=== PATIENT | female | born 1980 | race Caucasian/White ===

== ENCOUNTER 2020-01-16 13:31 | Outpatient (REF) | payer OTHER, SELFPAY | END 2020-01-16 13:32 | disposition home or self-care (01) | LOC: HO.LNP 13:31 | PROVIDERS: Visit Provider Pathology Anatomic Pathology & Clinical Pathology | DX: D89.49 Other mast cell activation disorder (principal) | CPT/HCPCS: 88363 ==

== ENCOUNTER → 2020-01-27 11:57 | Outpatient (BNVA) | payer OTHER, SELFPAY | PROVIDERS: PCP Internal Medicine; Referring Provider Internal Medicine; Visit Provider Internal Medicine Gastroenterology | DX: Z76.89 Persons encountering health services in other specified circumstances (principal) ==

== ENCOUNTER 2020-01-28 11:50 | Outpatient (REF) | payer OTHER, SELFPAY ==
[2020-01-28 14:21] LABS: Alanine Aminotransferase 22 U/L (0-31); Albumin Level 4.3 g/dL (3.5-5.0); Alkaline Phosphatase 82 U/L (39-117); Anion Gap 10 (12-20); Aspartate Amino Transferase 35 U/L (5-31); Bilirubin Total 0.3 mg/dL (0.0-1.0); Blood Urea Nitrogen 11 mg/dL (9-16); Calcium 9.1 mg/dL (8.4-10.2); Carbon Dioxide 33 mmol/L (22-29); Chloride 104 mmol/L (96-108); Estimated Glomerular Filt Rate > 60; Glucose Random 70 mg/dL (60-115); Potassium 3.3 mmol/l (3.3-5.1); Sodium 144 mmol/L (135-145)
[2020-01-28 14:43] LABS: Free T4 (Free Thyroxine) 1.04 ng/dL (0.71-1.85); Thyroid Stimulating Hormone 0.42 uIU/mL (0.32-4.0)
[2020-01-29 09:03] LABS: Thyroid Peroxidase Antibodies 1 IU/mL (<9)
[2020-01-29 12:08] LABS: Anti DNA DS Antibody <1 IU/mL
[2020-01-29 13:42] LABS: Immunoglobulin A 167 mg/dL (47-310); Immunoglobulin G 949 mg/dL (600-1640); Immunoglobulin M 236 mg/dL (50-300)
[2020-01-29 17:12] LABS: Thyroglobulin Antibodies <1 IU/mL (< or = 1); Transglutaminase Ab IgG 2 U/mL; Transglutaminase IgA 1 U/mL
[2020-01-29 22:37] LABS: Anti Nuclear Antibody Pattern Nuclear, Homogeneous; Anti Nuclear Antibody Screen POSITIVE (NEGATIVE)
== END 2020-01-28 11:51 | disposition home or self-care (01) ==
LOC: HO.LAB 11:50
PROVIDERS: PCP Internal Medicine; Visit Provider Nurse Practitioner Family
DX: R53.83 Other fatigue (principal); R23.2 Flushing; R19.7 Diarrhea, unspecified; R14.0 Abdominal distension (gaseous); R10.84 Generalized abdominal pain; R51.9 Headache, unspecified; J31.0 Chronic rhinitis; J45.20 Mild intermittent asthma, uncomplicated
CPT/HCPCS: 36415; 80053; 82784; 82785; 83516; 83520; 84439; 84443; 86003; 86038; 86039; 86225; 86376; 86800

== ENCOUNTER → 2020-03-23 13:45 | Outpatient (BNVA) | payer OTHER, SELFPAY | PROVIDERS: PCP Internal Medicine; Visit Provider Internal Medicine Cardiovascular Disease | DX: I49.8 Other specified cardiac arrhythmias (principal); R00.2 Palpitations | CPT/HCPCS: 93005 ==

== ENCOUNTER → 2020-04-20 09:20 | Outpatient (BNVA) | payer OTHER, SELFPAY | PROVIDERS: PCP Internal Medicine; Visit Provider Internal Medicine Gastroenterology ==

== ENCOUNTER 2020-04-21 14:09 | Outpatient (REF) | payer OTHER, SELFPAY ==
[2020-04-21 15:07] LABS: MANUAL DIFF FLAG NO
[2020-04-21 15:16] LABS: Basophils Percent Auto 0.6 % (0-2); Eosinophils Percent Auto 0.1 % (0-4); Hematocrit 36.5 % (37-47); Hemoglobin 11.8 g/dl (12.0-16.0); Imm Gran Abs Auto 0.01 X10*3/uL (0.00-0.03); Imm Gran Pct Auto 0.1 % (0.0-0.4); Lymphocytes Absolute Auto 1.6 X10*3/uL (1.2-4.9); Lymphocytes Percent Auto 23.3 % (20-40); Mean Corpuscular HGB Conc 32.3 g/dl (31.0-35.0); Mean Corpuscular Hemoglobin 30.5 pg (27.0-33.0); Mean Corpuscular Volume 94.3 fL (80-98); Mean Platelet Volume 11.1 fL (9.4-12.3); Monocytes Absolute Auto 0.5 X10*3/uL (0.1-1.2); Monocytes Percent Auto 6.6 % (2-11); Neutrophils Absolute Auto 4.8 X10*3/uL (2.0-8.3); Neutrophils Percent Auto 69.3 % (45-73); Platelet Count 289 X10*3/uL (160-400); Red Blood Count 3.87 X10*6/uL (4.20-5.50); Red Cell Distribution Width 13.2 % (11.0-16.0); White Blood Count 6.9 X10*3/uL (4.8-10.8)
[2020-04-21 15:45] LABS: Alanine Aminotransferase 22 U/L (0-31); Albumin Level 4.3 g/dL (3.5-5.0); Alkaline Phosphatase 87 U/L (39-117); Anion Gap 11 (12-20); Aspartate Amino Transferase 19 U/L (5-31); Bilirubin Total 0.3 mg/dL (0.0-1.0); Blood Urea Nitrogen 12 mg/dL (9-16); Calcium 9.1 mg/dL (8.4-10.2); Carbon Dioxide 29 mmol/L (22-29); Chloride 106 mmol/L (96-108); Estimated Glomerular Filt Rate > 60; Glucose Random 92 mg/dL (60-115); Potassium 3.7 mmol/L (3.3-5.1); Sodium 142 mmol/L (135-145)
[2020-04-21 16:00] LABS: Erythrocyte Sedimentation Rate 9 MM/HR (0-20)
[2020-04-21 16:06] LABS: Ferritin 17 ng/mL (10-250); Vitamin D 25-OH Total 35.5 ng/mL (>30)
[2020-04-23 15:36] LABS: Zinc 105 mcg/dL (60-130)
[2020-04-23 17:16] LABS: Folate > 20.0 ng/mL (> or = 4.0); Vitamin B12 628 pg/mL (200-900)
[2020-04-25 13:22] LABS: Vitamin B6 7.8 ng/mL (2.1-21.7)
[2020-04-26 03:32] LABS: Beta-Gamma Tocopherol <1.0 mg/L (<=4.3)
[2020-04-27 14:17] LABS: Vitamin A 32 mcg/dL (38-98)
[2020-04-27 16:16] LABS: Nicotinamide <20 ng/mL; Vit B3 - Nicotinic Acid <20 ng/mL
[2020-04-28 14:12] LABS: Vitamin K1 374 pg/mL (130-1500)
[2020-04-29 10:52] LABS: Vitamin B5 (Pantothenic Acid) 75 ng/mL (<275)
== END 2020-04-21 14:10 | disposition home or self-care (01) ==
LOC: HO.LAB 14:09
PROVIDERS: PCP Internal Medicine; Visit Provider Internal Medicine Gastroenterology
DX: D64.9 Anemia, unspecified (principal); R74.8 Abnormal levels of other serum enzymes
CPT/HCPCS: 36415; 80053; 82180; 82306; 82607; 82728; 82746; 84207; 84446; 84590; 84591; 84597; 84630; 85025; 85652

== ENCOUNTER 2020-04-23 14:03 | Outpatient (REF) | payer OTHER, SELFPAY ==
[2020-04-28 10:06] LABS: Fecal Fat Qualitative Normal (Normal)
[2020-04-30 15:37] LABS: Pancreatic Elastase-1 438 mcg/g
== END 2020-04-23 14:04 | disposition home or self-care (01) ==
LOC: HO.LNP 14:03
PROVIDERS: Visit Provider Internal Medicine Gastroenterology
DX: D64.9 Anemia, unspecified (principal); R74.8 Abnormal levels of other serum enzymes
CPT/HCPCS: 82656; 82705

== ENCOUNTER 2020-05-20 12:44 | Outpatient (REF) | payer OTHER, SELFPAY ==
--- NOTE | ~2020-05-20 | MM_ITS ---
EXAMINATION: MM SCREENING DIGITAL BREAST TOMOSYNTHESIS, BILATERAL CLINICAL INFORMATION: Screening. Asymptomatic. Age 39. No prior breast imaging. No known family history breast cancer. The lifetime risk of breast cancer based on the Tyrer-Cuzick Model is 12%. COMPARISON: None (current study represents initial baseline exam). TECHNIQUE: Digital breast tomosynthesis is performed in both the craniocaudal and mediolateral oblique views along with computer-aided detection (CAD). Synthesized 2D images are generated from the tomosynthesis. Additional bilateral exaggerated CC views are provided. FINDINGS: The breasts are heterogeneously dense, which may obscure small masses (ACR BI-RADS breast composition Category c). There are no significant masses, abnormal calcifications, or other abnormalities. The axilla and skin contours are unremarkable. MM/MM tomosynthesis screening BI IMPRESSION: No mammographic evidence of malignancy. ASSESSMENT: BI-RADS 1: Negative RECOMMENDATION: Routine annual mammography screening. This patient's information was entered into a reminder system with a target due date for their next mammogram.
== END 2020-05-20 12:45 | disposition home or self-care (01) ==
LOC: HO.MAMMO 12:44
PROVIDERS: Visit Provider Internal Medicine
DX: Z12.31 Encounter for screening mammogram for malignant neoplasm of breast (principal)
CPT/HCPCS: 77063; 77067

== ENCOUNTER 2020-05-31 08:52 | Outpatient (REF) | payer OTHER, SELFPAY ==
[2020-05-31 09:37] LABS: MANUAL DIFF FLAG NO
[2020-05-31 09:43] LABS: Basophils Absolute Auto 0.1 X10*3/uL (0.0-0.2); Basophils Percent Auto 0.8 % (0-2); Eosinophils Percent Auto 0.2 % (0-4); Hematocrit 37.7 % (37-47); Hemoglobin 12.4 g/dl (12.0-16.0); Imm Gran Abs Auto 0.01 X10*3/uL (0.00-0.03); Imm Gran Pct Auto 0.2 % (0.0-0.4); Lymphocytes Absolute Auto 1.4 X10*3/uL (1.2-4.9); Lymphocytes Percent Auto 22.7 % (20-40); Mean Corpuscular HGB Conc 32.9 g/dl (31.0-35.0); Mean Corpuscular Hemoglobin 30.5 pg (27.0-33.0); Mean Corpuscular Volume 92.9 fL (80-98); Mean Platelet Volume 11.1 fL (9.4-12.3); Monocytes Absolute Auto 0.5 X10*3/uL (0.1-1.2); Monocytes Percent Auto 7.3 % (2-11); Neutrophils Absolute Auto 4.3 X10*3/uL (2.0-8.3); Neutrophils Percent Auto 68.8 % (45-73); Platelet Count 297 X10*3/uL (160-400); Red Blood Count 4.06 X10*6/uL (4.20-5.50); White Blood Count 6.2 X10*3/uL (4.8-10.8)
[2020-05-31 10:15] LABS: Ferritin 11 ng/mL (10-250)
[2020-06-04 16:57] LABS: Vitamin A 39 mcg/dL (38-98)
== END 2020-05-31 08:53 | disposition home or self-care (01) ==
LOC: HO.LAB 08:52
PROVIDERS: PCP Internal Medicine; Visit Provider Internal Medicine Gastroenterology
DX: D64.9 Anemia, unspecified (principal)
CPT/HCPCS: 36415; 82728; 84590; 85025

== ENCOUNTER 2020-06-16 12:42 | Day surgery (SDC) | payer OTHER, SELFPAY ==
--- NOTE | 2020-06-15 10:52 | HO.ANESPROP2 ---
Documented by User: Natividad Pitts 06/15/20 10:55 HPI - Anesthesia Eval Consult details Narrative: 39yo F for Upper Endoscopy Mast Cell Activation Syndrome - benadryl preop PMFSH Active Problems Active Problems: All Active Problems (Updated 06/10/20 @ 09:31 by Debora Dubose MD) Mast cell activation syndrome (Acute) Anemia (Acute) Postural orthostatic tachycardia syndrome (Acute) Encounter for general adult medical examination with abnormal findings (Acute) Palpitations (Acute) Environmental allergies (Acute) Headache syndrome (Acute) Anxiety (Acute) Breast screening (Acute) Mast cell disorder (Acute) Elevated serum tryptase (Acute) Elevated serum tryptase (Acute) Past Medical History Medical History Anemia Anxiety Asthma Atrial tachycardia Gastroparesis Mast cell activation syndrome Postural orthostatic tachycardia syndrome Family History Family History Mother Fibromyalgia Diabetes Sister No problems noted. Maternal Aunt Uterine cancer Surgical History Surgical History H/O esophagogastroduodenoscopy Hx of colonoscopy Social History Social History (Updated 06/10/20 @ 09:25 by Halley Hernandez) Household Members: None Alcohol intake: former Smoking Status: Never smoker Use of substances other than those prescribed or required for medical reasons: No Are you DNR?: No Advance Directives: No Advance Directives Information Provided: Yes Meds Allergies Allergy/AdvReac Type Severity Reaction Status Date / Time prochlorperazine Allergy Intermediate DYSTONIC, Verified 06/16/20 12:55 [From COMPAZINE] muscle spasms Environmental Allergy Intermediate Runny Nose Uncoded 06/16/20 12:55 Home Medications Medication Instructions Recorded Confirmed Last Taken Type loratadine 1 tab PO DAILY 12/01/19 03/23/20 Unknown History sumatriptan succinate 50 mg tablet See Rx Instructions PO .COMPLEX 03/05/20 03/23/20 Unknown History Exam Exam Date and Time: June 15, 2020 1052 Pertinent Lab Results Pertinent Lab Results: Laboratory Tests 06/10/20 06/10/20 09:35 09:35 WBC 6.3 Hgb 12.3 Hct 37.9 Plt Count 297 Sodium 142 Potassium 3.6 Chloride 105 Carbon Dioxide 31 H BUN 13 Creatinine 0.81 Assessment and Plan Assessment Anesthesia Assessment: Chart Reviewed Documented by User: Fransisca Ellis 06/16/20 13:48 PMFSH Past Medical History Medical History Anemia Anxiety Asthma Atrial tachycardia Gastroparesis Mast cell activation syndrome Postural orthostatic tachycardia syndrome Family History Family History Mother Fibromyalgia Diabetes Sister No problems noted. Maternal Aunt Uterine cancer Surgical History Surgical History H/O esophagogastroduodenoscopy Hx of colonoscopy Social History Social History (Updated 06/10/20 @ 09:25 by Halley Hernandez) Household Members: None Alcohol intake: former Smoking Status: Never smoker Use of substances other than those prescribed or required for medical reasons: No Are you DNR?: No Advance Directives: No Advance Directives Information Provided: Yes Meds Allergies Allergy/AdvReac Type Severity Reaction Status Date / Time prochlorperazine Allergy Intermediate DYSTONIC, Verified 06/16/20 12:55 [From COMPAZINE] muscle spasms Environmental Allergy Intermediate Runny Nose Uncoded 06/16/20 12:55 Home Medications Medication Instructions Recorded Confirmed Last Taken Type loratadine 1 tab PO DAILY 12/01/19 03/23/20 Unknown History sumatriptan succinate 50 mg tablet See Rx Instructions PO .COMPLEX 03/05/20 03/23/20 Unknown History Exam Airway Mallampati Class: II TM Dist: >3cm Neck ROM: Full Heart: RRR Lungs: CTA Assessment and Plan Assessment Anesthesia Assessment: Anesthesia Plan Discussed and Chart Reviewed Final Anesthetic Review NPO: Yes ASA Class: II Final Preanesthetic Review: No Changes in Pt Med Stat and Consent Obtained/Reviewed Patient Risk: Intermediate Procedure Risk: Intermediate Anesthetic Plan Anesthetic Plan: MAC: Disposition: Standard PACU
[2020-06-16 13:01] LABS: UPreg QC Valid YES; Urine Pregnancy NEGATIVE (NEGATIVE)
[2020-06-16 13:08] VITALS: BP 134/85; PULSE 117; RESP 18; TEMP 37; O2SAT 97; BMI 23.0
[2020-06-16] MEDS: Lactated Ringers 1,000 ML 100 ML IVCONT (13:22)
[2020-06-16] MEDS: diphenhydrAMINE HCL 25 MG TABLET PO (13:22)
--- NOTE | 2020-06-16 13:43 | P.HPSUR_ITS ---
Pre-Procedural Eval Section B Chief Complaint: Anemia Details of Present Illness: dysphagia Relevant Family History (Specify if Yes): No Relevant Social History: None Present Medications: see Short Stay Collaborative assessment Medical History: Significant History (Anemia Anxiety Asthma Atrial tachycardia Gastroparesis Mast cell activation syndrome Postural orthostatic tachycardia syndrome) History of Previous Operations: Relevant previous surgery/procedure and date(s) (H/O esophagogastroduodenoscopy Hx of colonoscopy) Allergies: Allergies Allergy/AdvReac Type Severity Reaction Status Date / Time prochlorperazine Allergy Intermediate DYSTONIC, Verified 06/16/20 12:55 [From COMPAZINE] muscle spasms Environmental Allergy Intermediate Runny Nose Uncoded 06/16/20 12:55 Review of Systems Sugical H&P ROS: Negative: Constitution, Cardiovascular, Respiratory, Neurological, Psychiatric, Hem-Onc, Allergic/Immunologic, Gastrointestinal, Genitourinary, Musculoskeletal, Integumentary, Endocrine and Eyes/Ears/Nose/Throat Exam Surgical H&P Exam: Normal: HEENT, Normal: Heart, Normal: Lungs, Normal: Ext remities, Normal: Abdomen, Normal: Skin and Normal: Neurological Plan Diagnosis/Plan: Unchanged I have reviewed the history and physical and performed a pertinent physical examination on my patient. No changes have occurred unless specified.
--- NOTE | 2020-06-16 14:22 | P.BOP_ITS ---
Brief Operative Note Date of Service: 06/16/20 Pre-op diagnosis: dysphagia, Post-op diagnosis: same Procedure: see op note Surgeon: Tiffanie Werner MD Anesthesia: MAC Was an Pilot Supervisor used for this Procedure?: No Estimated blood loss (mL): 0 Condition: stable Disposition: PACU
--- NOTE | 2020-06-16 14:22 | W.PM.OPN ---
Operative Note Operative Note Date of Service: 06/16/20 Narrative: Procedure Description: EGD FLEXIBLE TRANSORAL UPPER GASTROINTESTINAL ENDOSCOPY UPPER ENDOSCOPY Consent: Indications for the procedure and potential complications of bleeding, perforation, reaction to medications and missed diagnosis were discussed with the patient and informed consent was obtained. Instrument: Olympus GIF H 190 J mid size upper endoscope Monitoring: Vital signs and clinical assessment, continuous EKG monitoring, Pulse oximetry, Carbon Dioxide monitoring and blood pressure monitoring were done throughout the procedure. Procedure: The patient was placed in the left lateral decubitis position and pre-procedure medications were administered and a bite block was placed. The endoscope was inserted into the mouth and advanced under direct vision to the third part of duodenum. A careful inspection was made as the upper endoscope was withdrawn including a retroflexed examination of the proximal stomach; Findings and interventions are described below. Findings: Larynx:normal Esophagus: GE junction at 35 cm, diaphragm hiatus at 35 cm, mild esophagitis, bx taken from GEJ and distal, proximal/mid esophagus in separate jars, 20 mm balloon dilated across GEJ and then 18 mm at proximal esophagus-no tears seen Stomach: Patchy gastric erythema. Biopsies were obtained. Grade 2 flap valve on retroflexed examination of the cardia. Duodenum: Normal bulb and descending duodenum, bx taken Intervention: Biopsies as noted above Impression/Findings: mild esophagitis mild gastritis PLAN: await path, can have regular diet
[2020-06-16 14:59] VITALS: BP 119/68; PULSE 121; RESP 16; TEMP 37.3; O2SAT 97
[2020-06-16 15:10] VITALS: PULSE 110; RESP 18; O2SAT 99
[2020-06-16 15:14] VITALS: BP 129/81; PULSE 108; RESP 18; TEMP 36.8; O2SAT 99
[2020-06-16 15:25] VITALS: PULSE 104; RESP 18; O2SAT 99
== END 2020-06-16 15:46 | disposition home or self-care (01) ==
PROVIDERS: Nurse Practitioner; PCP Internal Medicine; Visit Provider Internal Medicine Gastroenterology
PROC: 0DJ08ZZ Inspection of Upper Intestinal Tract, Via Natural or Artificial Opening Endoscopic (ICD-10-PCS; CPT 43235; principal; 2020-06-16 14:10)
DX: D64.9 Anemia, unspecified (principal); D89.40 Mast cell activation, unspecified; K29.50 Unspecified chronic gastritis without bleeding; R74.8 Abnormal levels of other serum enzymes; K20.80 Other esophagitis without bleeding; K44.9 Diaphragmatic hernia without obstruction or gangrene; K31.84 Gastroparesis; I47.1 Supraventricular tachycardia; I49.8 Other specified cardiac arrhythmias; J45.909 Unspecified asthma, uncomplicated; Z88.8 Allergy status to other drugs, medicaments and biological substances
CPT/HCPCS: 43249; 43239; 81025; 88305; 88341; 88342; C1726; J3010; Q0163

== ENCOUNTER → 2020-07-06 12:03 | Outpatient (BNVA) | payer OTHER, SELFPAY | PROVIDERS: PCP Internal Medicine; Visit Provider Internal Medicine Gastroenterology ==

== ENCOUNTER → 2020-08-24 10:52 | Outpatient (BNVA) | payer OTHER, SELFPAY | PROVIDERS: PCP Internal Medicine; Referring Provider Internal Medicine; Visit Provider Internal Medicine Gastroenterology ==

== ENCOUNTER → 2020-10-29 10:19 | Outpatient (BNVA) | payer OTHER, SELFPAY | PROVIDERS: PCP Internal Medicine; Referring Provider Internal Medicine; Visit Provider Internal Medicine Gastroenterology ==

== ENCOUNTER 2020-11-01 09:08 | Outpatient (REF) | payer OTHER, SELFPAY ==
[2020-11-01 10:06] LABS: MANUAL DIFF FLAG NO
[2020-11-01 10:15] LABS: Basophils Absolute Auto 0.1 X10*3/uL (0.0-0.2); Basophils Percent Auto 0.8 % (0-2); Eosinophils Absolute Auto 0.2 X10*3/uL (0.0-0.4); Eosinophils Percent Auto 2.6 % (0-4); Hematocrit 37.3 % (37-47); Hemoglobin 12.4 g/dl (12.0-16.0); Imm Gran Abs Auto 0.02 X10*3/uL (0.00-0.03); Imm Gran Pct Auto 0.3 % (0.0-0.4); Lymphocytes Absolute Auto 1.6 X10*3/uL (1.2-4.9); Lymphocytes Percent Auto 25.4 % (20-40); Mean Corpuscular HGB Conc 33.2 g/dl (31.0-35.0); Mean Corpuscular Hemoglobin 31.1 pg (27.0-33.0); Mean Corpuscular Volume 93.5 fL (80-98); Mean Platelet Volume 11.3 fL (9.4-12.3); Monocytes Absolute Auto 0.4 X10*3/uL (0.1-1.2); Monocytes Percent Auto 6.7 % (2-11); Neutrophils Absolute Auto 3.9 X10*3/uL (2.0-8.3); Neutrophils Percent Auto 64.2 % (45-73); Platelet Count 276 X10*3/uL (160-400); Red Blood Count 3.99 X10*6/uL (4.20-5.50); Red Cell Distribution Width 13.3 % (11.0-16.0); White Blood Count 6.1 X10*3/uL (4.8-10.8)
[2020-11-01 10:49] LABS: Alanine Aminotransferase 27 U/L (0-31); Albumin Level 4.5 g/dL (3.5-5.0); Alkaline Phosphatase 73 U/L (39-117); Anion Gap 13 (12-20); Aspartate Amino Transferase 22 U/L (5-31); Bilirubin Total 0.4 mg/dL (0.0-1.0); Blood Urea Nitrogen 11 mg/dL (9-16); C Reactive Protein 0.04 mg/dL (< or = 0.50); Calcium 9.3 mg/dL (8.4-10.2); Carbon Dioxide 27 mmol/L (22-29); Chloride 107 mmol/L (96-108); Estimated Glomerular Filt Rate > 60; Glucose Random 90 mg/dL (60-115); Iron 125 mcg/dL (30-160); Percent Iron Saturation 33 % (15-50); Potassium 3.8 mmol/L (3.3-5.1); Sodium 143 mmol/L (135-145); Total Iron Binding Capacity 381 mcg/dL (228-428); Unsaturated Iron Binding 256 ug/dL
[2020-11-01 11:02] LABS: Estimated Average Glucose 94 mg/dL; Hemoglobin A1c % 4.9 %
[2020-11-01 11:30] LABS: Ferritin 22 ng/mL (10-250); TSH reflex Free T4 0.73 uIU/mL (0.32-4.0); Vitamin D 25-OH Total 33.8 ng/mL (>30)
[2020-11-01 11:48] LABS: Folate 17.8 ng/mL (> or = 4.0); Vitamin B12 721 pg/mL (200-900)
[2020-11-04 06:28] LABS: Zinc 84 mcg/dL (60-130)
[2020-11-04 16:32] LABS: Vitamin B5 (Pantothenic Acid) 87 ng/mL (<275)
[2020-11-04 17:43] LABS: Vitamin C 1.2 mg/dL (0.3-2.7)
[2020-11-05 12:36] LABS: Vitamin B6 18.8 ng/mL (2.1-21.7)
[2020-11-05 13:46] LABS: Nicotinamide 24 ng/mL; Vit B3 - Nicotinic Acid <20 ng/mL
[2020-11-06 02:12] LABS: Vitamin K1 459 pg/mL (130-1500)
[2020-11-07 00:26] LABS: Vitamin A 23 mcg/dL (38-98)
[2020-11-07 00:41] LABS: Alpha-Tocopherol 11.5 mg/L (5.7-19.9); Beta-Gamma Tocopherol <1.0 mg/L (<=4.3)
== END 2020-11-01 09:09 | disposition home or self-care (01) ==
LOC: HO.LAB 09:08
PROVIDERS: PCP Internal Medicine; Visit Provider Internal Medicine Gastroenterology
DX: R74.8 Abnormal levels of other serum enzymes (principal); K75.81 Nonalcoholic steatohepatitis (NASH); E16.2 Hypoglycemia, unspecified; R00.2 Palpitations
CPT/HCPCS: 36415; 80053; 82180; 82306; 82533; 82607; 82728; 82746; 83036; 83540; 84207; 84443; 84446; 84590; 84591; 84597; 84630; 85025; 86140

== ENCOUNTER 2021-01-05 11:49 | Outpatient (REF) | payer OTHER, SELFPAY ==
[2021-01-11 10:01] LABS: Creatinine Random Urine 160 mg/dL (16 - 326); N-Methylhistamine Random Urine 114 mcg/g Cr (30-200)
[2021-01-25 10:32] LABS: Prostaglandin D2 Random Urine 638 ng/liter
== END 2021-01-05 11:50 | disposition home or self-care (01) ==
LOC: HO.LAB 11:49
PROVIDERS: PCP Internal Medicine; Visit Provider Nurse Practitioner Family
DX: D89.49 Other mast cell activation disorder (principal); R19.7 Diarrhea, unspecified; L50.8 Other urticaria
CPT/HCPCS: 36415; 82542; 82570; 83520; 84150

== ENCOUNTER 2021-03-01 09:48 | Outpatient (REF) | payer OTHER, SELFPAY ==
[2021-03-01 11:01] LABS: MANUAL DIFF FLAG NO
[2021-03-01 11:11] LABS: Basophils Absolute Auto 0.1 X10*3/uL (0.0-0.2); Basophils Percent Auto 1.3 % (0-2); Eosinophils Percent Auto 0.1 % (0-4); Hematocrit 38.3 % (37.0-47.0); Hemoglobin 12.2 g/dl (12.0-16.0); Imm Gran Abs Auto 0.02 X10*3/uL (0.00-0.03); Imm Gran Pct Auto 0.3 % (0.0-0.4); Lymphocytes Absolute Auto 1.3 X10*3/uL (1.2-4.9); Lymphocytes Percent Auto 19.3 % (20-40); Mean Corpuscular HGB Conc 31.9 g/dl (31.0-35.0); Mean Corpuscular Hemoglobin 29.8 pg (27.0-33.0); Mean Corpuscular Volume 93.4 fL (80.0-98.0); Mean Platelet Volume 10.7 fL (9.4-12.3); Monocytes Absolute Auto 0.4 X10*3/uL (0.1-1.2); Monocytes Percent Auto 6.3 % (2-11); Neutrophils Absolute Auto 4.9 x10*3/uL (2.0-8.3); Neutrophils Percent Auto 72.7 % (45-73); Platelet Count 349 X10*3/uL (160-400); Red Cell Distribution Width 13.1 % (11.0-16.0); White Blood Count 6.8 X10*3/uL (4.8-10.8)
[2021-03-01 12:08] LABS: Alanine Aminotransferase 36 U/L (0-31); Albumin Level 4.4 g/dL (3.5-5.0); Alkaline Phosphatase 113 U/L (39-117); Anion Gap 12 (12-20); Aspartate Amino Transferase 17 U/L (5-31); Bilirubin Total 0.2 mg/dL (0.0-1.0); Blood Urea Nitrogen 17 mg/dL (9-16); Calcium 9.7 mg/dL (8.4-10.2); Carbon Dioxide 26 mmol/L (22-29); Chloride 110 mmol/L (96-108); Estimated Glomerular Filt Rate > 60; Glucose Random 98 mg/dL (60-115); Potassium 3.8 mmol/L (3.3-5.1); Sodium 144 mmol/L (135-145); Total Protein 7.4 g/dL (6.5-8.0)
[2021-03-05 00:16] LABS: Vitamin A 42 mcg/dL (38-98)
== END 2021-03-01 09:49 | disposition home or self-care (01) ==
LOC: HO.LAB 09:48
PROVIDERS: PCP Internal Medicine; Referring Provider Internal Medicine; Visit Provider Internal Medicine Gastroenterology
DX: E50.9 Vitamin A deficiency, unspecified (principal); R74.8 Abnormal levels of other serum enzymes; F41.9 Anxiety disorder, unspecified
CPT/HCPCS: 36415; 80053; 84590; 85025

== ENCOUNTER → 2021-04-28 13:39 | Outpatient (BNVA) | payer OTHER, SELFPAY | PROVIDERS: PCP Internal Medicine; Visit Provider Advanced Practice Midwife | DX: Z13.89 Encounter for screening for other disorder (principal) ==

== ENCOUNTER 2021-05-31 08:25 | Outpatient (REF) | payer OTHER, SELFPAY ==
--- NOTE | ~2021-05-31 | MM_ITS ---
EXAMINATION: MM SCREENING DIGITAL BREAST TOMOSYNTHESIS, BILATERAL CLINICAL INFORMATION: Screening. Asymptomatic. The lifetime risk of breast cancer based on the Tyrer-Cuzick Model is 12%. COMPARISON: Mammography: 05/20/2020 (baseline) TECHNIQUE: Digital breast tomosynthesis is performed in both the craniocaudal and mediolateral oblique views along with computer-aided detection (CAD). Synthesized 2D images are generated from the tomosynthesis. FINDINGS: The breasts are heterogeneously dense, which may obscure small masses (ACR BI-RADS breast composition Category c). There are no significant masses, abnormal calcifications, or other abnormalities. Parenchymal pattern is similar to prior study. No architectural abnormality. There are bilateral small solitary low axillary tail nodes. The skin contours are smooth. There are no significant changes. MM/MM tomosynthesis screening BI IMPRESSION: No mammographic evidence of malignancy. ASSESSMENT: BI-RADS 2: Benign RECOMMENDATION: Routine annual mammography screening. This patient's information was entered into a reminder system with a target due date for their next mammogram.
== END 2021-05-31 08:26 | disposition home or self-care (01) ==
LOC: HO.MAMMO 08:25
PROVIDERS: PCP Internal Medicine; Visit Provider Internal Medicine
DX: Z12.31 Encounter for screening mammogram for malignant neoplasm of breast (principal)
CPT/HCPCS: 77063; 77067

== ENCOUNTER 2021-06-01 09:49 | Day surgery (SDC) | payer OTHER, SELFPAY ==
[2021-05-25 09:58] VITALS: BMI 23.3
--- NOTE | 2021-05-27 12:07 | P.CONAN_ITS ---
HPI - Anesthesia Eval Consult details Narrative: 40yo F for Upper Endoscopy s/p EGD 06/2020 with MAC Mast Cell Activation Syndrome - benadryl preop PMFSH Active Problems Active Problems: All Active Problems (Updated 04/28/21 @ 14:21 by Silvano Braden) Elevated serum tryptase (Acute) Elevated serum tryptase (Acute) Mast cell disorder (Acute) Breast screening (Acute) Headache syndrome (Acute) Environmental allergies (Acute) Palpitations (Acute) Encounter for general adult medical examination with abnormal findings (Acute) Hypoglycemia (Acute) Vitamin A deficiency (Acute) Anxiety, generalized (Acute) Encounter for annual routine gynecological examination (Acute) Anemia (Acute) Postural orthostatic tachycardia syndrome (Acute) Anxiety (Acute) Past Medical History Medical History Anemia Anxiety Asthma Atrial tachycardia Gastroparesis Mast cell activation syndrome Postural orthostatic tachycardia syndrome Family History Family History Mother Fibromyalgia Diabetes Sister No problems noted. Maternal Aunt Uterine cancer Surgical History Surgical History (Updated 05/24/21 @ 15:49 by Deloris Sr RN) H/O esophagogastroduodenoscopy Hx of colonoscopy Social History Social History Household Members: None [facility] Alcohol intake: former Patient Tobacco Use Status: Never used Tobacco Second Hand Smoke Exposure: No Current occupational status: employed ([employer]) Meds Allergies Allergy/AdvReac Type Severity Reaction Status Date / Time prochlorperazine Allergy Intermediate DYSTONIC, Verified 04/28/21 14:11 [From COMPAZINE] muscle spasms Environmental Allergy Intermediate Runny Nose Uncoded 03/08/21 10:29 Home Medications Medication Instructions Recorded Confirmed Last Taken Type loratadine 10 mg tablet 1 tab PO DAILY 12/01/19 03/08/21 Unknown History sumatriptan succinate 50 mg tablet See Rx Instructions PO .COMPLEX 03/05/20 03/08/21 Unknown History (Imitrex) epinephrine 0.3 mg/0.3 mL 1 ml IM NEEDED 07/06/20 03/08/21 Unknown History injection, auto-injector vitamin A 10,000 unit capsule 1 cap PO DAILY 03/01/21 03/08/21 Unknown History amitriptyline 10 mg tablet 30 mg PO BEDTIME tab 03/08/21 03/08/21 Unknown History Exam Exam Date and Time: May 27, 2021 1207 Height,Weight and Vital Signs: Height 5 ft 3 in Weight 59.874 kg Pertinent Lab Results Pertinent Lab Results: Laboratory Tests 03/01/21 03/01/21 10:59 10:59 WBC 6.8 Hgb 12.2 Hct 38.3 Plt Count 349 Sodium 144 Potassium 3.8 Chloride 110 H Carbon Dioxide 26 BUN 17 H Creatinine 0.81 Assessment and Plan Assessment Anesthesia Assessment: Chart Reviewed
[2021-06-01 09:57] VITALS: BP 135/81; PULSE 93; RESP 18; TEMP 35.9; O2SAT 100
[2021-06-01] MEDS: diphenhydrAMINE HCL 25 MG TABLET PO (10:00)
[2021-06-01] MEDS: Lactated Ringers 1,000 ML 100 ML IVCONT (10:18)
--- NOTE | 2021-06-01 10:27 | MHC.SHP ---
Pre-Procedural Eval Section A Date of Service: 06/01/21 Section B Chief Complaint: mast cell disorder Details of Present Illness: EGD for Tryptase stained biopsies and a c-KIT test Relevant Family History (Specify if Yes): No Relevant Social History: None Present Medications: see Short Stay Collaborative assessment Medical History: Significant History (Anemia Anxiety Asthma Atrial tachycardia Gastroparesis Mast cell activation syndrome Postural orthostatic tachycardia syndrome) History of Previous Operations: Relevant previous surgery/procedure and date(s) (EGD, colonoscopy) Allergies: Allergies Allergy/AdvReac Type Severity Reaction Status Date / Time prochlorperazine Allergy Intermediate DYSTONIC, Verified 04/28/21 14:11 [From COMPAZINE] muscle spasms Environmental Allergy Intermediate Runny Nose Uncoded 03/08/21 10:29 Review of Systems Sugical H&P ROS: Negative: Constitution, Cardiovascular, Respiratory, Neurological, Psychiatric, Hem-Onc, Allergic/Immunologic, Gastrointestinal, Genitourinary, Musculoskeletal, Integumentary, Endocrine and Eyes/Ears/Nose/Throat Exam Surgical H&P Exam: Normal: HEENT, Normal: Heart, Normal: Lungs, Normal: Extremities, Normal: Abdomen, Normal: Skin and Normal: Neurological Plan Diagnosis/Plan: Unchanged I have reviewed the history and physical and performed a pertinent physical examination on my patient. No changes have occurred unless specified.
[2021-06-01 10:30] LABS: UPreg QC Valid YES; Urine Pregnancy NEGATIVE (NEGATIVE)
--- NOTE | 2021-06-01 10:53 | PM.OP ---
Brief Operative Note Date of Service: 06/01/21 Pre-op diagnosis: EGD for Tryptase stained biopsies and a c-KIT test -hx of dysphagia and mast cell disorder Post-op diagnosis: same Procedure: see op note Surgeon: Tiffanie Werner MD Anesthesia: MAC Was an Test Engine Evaluator used for this Procedure?: No Estimated blood loss (mL): 0 Condition: stable Disposition: PACU
--- NOTE | 2021-06-01 10:53 | W.PM.OPN ---
Operative Note Operative Note Date of Service: 06/01/21 Narrative: Procedure Description: EGD Indication: EGD for Tryptase stained biopsies and a c-KIT test -hx of dysphagia and mast cell disorder Anesthesia: MAC FLEXIBLE TRANSORAL UPPER GASTROINTESTINAL ENDOSCOPY UPPER ENDOSCOPY Consent: Indications for the procedure and potential complications of bleeding, perforation, reaction to medications and missed diagnosis were discussed with the patient and informed consent was obtained. Instrument: Olympus GIF H 190 J mid size upper endoscope Monitoring: Vital signs and clinical assessment, continuous EKG monitoring, Pulse oximetry, Carbon Dioxide monitoring and blood pressure monitoring were done throughout the procedure. Procedure: The patient was placed in the left lateral decubitis position and pre-procedure medications were administered and a bite block was placed. The endoscope was inserted into the mouth and advanced under direct vision to the third part of duodenum. A careful inspection was made as the upper endoscope was withdrawn including a retroflexed examination of the proximal stomach; Findings and interventions are described below. Findings: Larynx:normal, midl erythema at vocal cords Esophagus: GE junction at 36 cm, diaphragm hiatus at 36 cm, balloon dilation done to 20 mm at GEj and 20 mm at the UES, no tears seen, random bx taken Stomach: Patchy gastric erythema. Biopsies were obtained. Grade 2 flap valve on retroflexed examination of the cardia. Duodenum: Normal bulb and descending duodenum, bx taken Intervention: Biopsies as noted above, balloon dilation Impression/Findings: mild gastritis PLAN: cont with medications as doing, await bx results
[2021-06-01 10:57] VITALS: BP 98/57; PULSE 87; RESP 18; TEMP 36.7; O2SAT 100
[2021-06-01 11:12] VITALS: BP 114/68; PULSE 84; RESP 18; O2SAT 100
[2021-06-01 11:24] VITALS: BP 120/72; PULSE 90; RESP 16; TEMP 36.6; O2SAT 100
== END 2021-06-01 12:22 | disposition home or self-care (01) ==
PROVIDERS: Nurse Practitioner; PCP Internal Medicine; Visit Provider Internal Medicine Gastroenterology
PROC: 0DJ08ZZ Inspection of Upper Intestinal Tract, Via Natural or Artificial Opening Endoscopic (ICD-10-PCS; CPT 43235; principal; 2021-06-01 11:00)
DX: K21.9 Gastro-esophageal reflux disease without esophagitis (principal); D89.40 Mast cell activation, unspecified; K29.50 Unspecified chronic gastritis without bleeding; K31.84 Gastroparesis; K44.9 Diaphragmatic hernia without obstruction or gangrene; D64.9 Anemia, unspecified; E50.9 Vitamin A deficiency, unspecified; F41.1 Generalized anxiety disorder; R74.8 Abnormal levels of other serum enzymes; J45.909 Unspecified asthma, uncomplicated; I49.8 Other specified cardiac arrhythmias; Z79.899 Other long term (current) drug therapy; Z88.8 Allergy status to other drugs, medicaments and biological substances
CPT/HCPCS: 43249; 43239; 81025; 88305; 88341; 88342; C1726; Q0163

== ENCOUNTER 2021-11-11 13:45 | Outpatient (REF) | payer OTHER, SELFPAY | END 2021-11-11 13:46 | disposition home or self-care (01) | LOC: HO.LAB 13:45 | PROVIDERS: Absent Provider Internal Medicine Medical Oncology; PCP Internal Medicine; Referring Provider Internal Medicine Gastroenterology; Visit Provider Nurse Practitioner Family | DX: Z13.89 Encounter for screening for other disorder (principal) ==

== ENCOUNTER → 2022-01-02 14:33 | Outpatient (BNVA) | payer OTHER, SELFPAY | PROVIDERS: PCP Internal Medicine; Referring Provider Internal Medicine; Visit Provider Internal Medicine Cardiovascular Disease | DX: I49.8 Other specified cardiac arrhythmias (principal) | CPT/HCPCS: 93005 ==

== ENCOUNTER 2022-01-20 13:12 | Outpatient (REF) | payer OTHER, SELFPAY ==
--- NOTE | ~2022-01-20 | US_ITS ---
EXAMINATION: US ABDOMEN COMPLETE CLINICAL INFORMATION: Upper abdominal pain, unspecified. COMPARISON: Ultrasound abdomen complete 01/28/2018 TECHNIQUE: Real-time imaging of the abdominal viscera. FINDINGS: PANCREAS: Obscured by bowel gas. ABDOMINAL AORTA: Visualized aorta is normal in caliber however portions are obscured by bowel gas. INFERIOR VENA CAVA: Visualized portions are normal. LIVER: Normal. The liver is normal in size. The liver contour is normal. Parenchymal echogenicity is normal. No focal hepatic lesion. There is no intrahepatic biliary duct dilatation seen. GALLBLADDER: Surgically absent. COMMON BILE DUCT: Normal in caliber measuring 0.4 cm in diameter. RIGHT KIDNEY: Normal. No hydronephrosis. No renal calculi or focal parenchymal lesions. The kidney measures 10.4 cm in maximum dimension. LEFT KIDNEY: Normal. No hydronephrosis. No renal calculi or focal parenchymal lesions. The kidney measures 9.8 cm in maximum dimension. SPLEEN: Normal. The spleen measures 9.9 cm in maximum dimension. FREE FLUID: None. US/US abdomen complete IMPRESSION: The pancreas and portions of the aorta were obscured by bowel gas limiting evaluation. Status post cholecystectomy. No intra or extrahepatic biliary duct dilatation.
== END 2022-01-20 13:13 | disposition home or self-care (01) ==
LOC: HO.US 13:12
PROVIDERS: Visit Provider Internal Medicine Gastroenterology
DX: R10.10 Upper abdominal pain, unspecified (principal)
CPT/HCPCS: 76700

== ENCOUNTER 2022-04-25 10:00 | Day surgery (SDC) | payer OTHER, SELFPAY ==
[2022-04-20 11:35] VITALS: BMI 23.7
--- NOTE | 2022-04-24 09:40 | HO.ANESPROP2 ---
HPI - Anesthesia Eval Consult details Narrative: 41yo F for Upper Endo [place] [facility] s/p EGD 05/2021 with MAC benadryl 25mg PO preop 2/2 mast cell activation PMFSH Active Problems Active Problems: All Active Problems (Updated 01/16/22 @ 12:59 by Tiffanie Werner MD) Elevated serum tryptase (Acute) Elevated serum tryptase (Acute) Mast cell disorder (Acute) Breast screening (Acute) Headache syndrome (Acute) Environmental allergies (Acute) Palpitations (Acute) Encounter for general adult medical examination with abnormal findings (Acute) Hypoglycemia (Acute) Vitamin A deficiency (Acute) Anxiety, generalized (Acute) Encounter for annual routine gynecological examination (Acute) Upper abdominal pain (Acute) Anemia (Acute) Postural orthostatic tachycardia syndrome (Acute) Anxiety (Acute) Past Medical History Medical History Anemia Anxiety Asthma Atrial tachycardia Gastroparesis Mast cell activation syndrome Postural orthostatic tachycardia syndrome Family History Family History Mother Fibromyalgia Diabetes Sister No problems noted. Maternal Aunt Uterine cancer Surgical History Surgical History (Updated 04/25/22 @ 10:47 by Linette Inman, RN) H/O esophagogastroduodenoscopy History of Leonarod fundoplication Hx of colonoscopy Social History Social History Household Members: None Housing: Condominium Alcohol intake: former Patient Tobacco Use Status: Never used Tobacco e-Cigarette/Vaping Use: Never Used Second Hand Smoke Exposure: No Current occupational status: employed ([employer]) Cognitive needs: No Hearing needs: No Vision needs: No Meds Allergies Allergy/AdvReac Type Severity Reaction Status Date / Time prochlorperazine Allergy Intermediate DYSTONIC, Verified 04/25/22 10:57 [From COMPAZINE] muscle spasms Environmental Allergy Intermediate Runny Nose Uncoded 11/11/21 11:51 Home Medications Medication Instructions Recorded Confirmed Last Taken Type loratadine 10 mg tablet 1 tab PO DAILY 12/01/19 04/25/22 Unknown History sumatriptan succinate 50 mg tablet See Rx Instructions PO .COMPLEX 03/05/20 04/25/22 Unknown History (Imitrex) epinephrine 0.3 mg/0.3 mL 1 ml IM NEEDED anaphylaxis 07/06/20 04/25/22 Unknown History injection, auto-injector amitriptyline 10 mg tablet 30 mg PO BEDTIME 03/08/21 04/25/22 Unknown History Exam Exam Date and Time: April 24, 2022 0940 Height,Weight and Vital Signs: Height 5 ft 3 in Weight 60.781 kg Narrative Narrative: EKG 12/2021 normal sinus rhythm 87 beats per minute biatrial enlargement with J-point depression Assessment and Plan Assessment Anesthesia Assessment: Chart Reviewed
[2022-04-25 11:04] VITALS: BP 136/74; PULSE 105; RESP 16; TEMP 37.1; O2SAT 99
[2022-04-25 11:06] LABS: UPreg QC Valid YES
[2022-04-25 11:07] LABS: Urine Pregnancy NEGATIVE (NEGATIVE)
[2022-04-25] MEDS: diphenhydrAMINE HCL 25 MG CAPSULE PO (11:07)
[2022-04-25] MEDS: Lactated Ringers 1,000 ML 100 ML IVCONT (11:22)
--- NOTE | 2022-04-25 11:31 | MHC.SHP ---
Pre-Procedural Eval Section A Date of Service: 04/25/22 Section B Chief Complaint: Upper abdominal pain, unspecified Details of Present Illness: GERD Relevant Family History (Specify if Yes): No Relevant Social History: None Present Medications: see Short Stay Collaborative assessment Medical History: Significant History (Anemia Anxiety Asthma Atrial tachycardia Gastroparesis Mast cell activation syndrome Postural orthostatic tachycardia syndrome) History of Previous Operations: Relevant previous surgery/procedure and date(s) (egd,colonoscopy) Allergies: Allergies Allergy/AdvReac Type Severity Reaction Status Date / Time prochlorperazine Allergy Intermediate DYSTONIC, Verified 04/25/22 10:57 [From COMPAZINE] muscle spasms Environmental Allergy Intermediate Runny Nose Uncoded 11/11/21 11:51 Review of Systems Sugical H&P ROS: Negative: Constitution, Cardiovascular, Respiratory, Neurological, Psychiatric, Hem-Onc, Allergic/Immunologic, Gastrointestinal, Genitourinary, Musculoskeletal, Integumentary, Endocrine and Eyes/Ears/Nose/Throat Exam Surgical H&P Exam: Normal: HEENT, Normal: Heart, Normal: Lungs, Normal: Extremities, Normal: Abdomen, Normal: Skin and Normal: Neurological Plan Diagnosis/Plan: Unchanged I have reviewed the history and physical and performed a pertinent physical examination on my patient. No changes have occurred unless specified. Time Spent With Patient Time: Total time managing care of this patient today ____ minutes.
--- NOTE | 2022-04-25 12:49 | W.PM.OPN ---
Operative Note Operative Note Date of Service: 04/25/22 Narrative: Procedure Description: EGD Indication: [] Anesthesia: MAC FLEXIBLE TRANSORAL UPPER GASTROINTESTINAL ENDOSCOPY UPPER ENDOSCOPY Consent: Indications for the procedure and potential complications of bleeding, perforation, reaction to medications and missed diagnosis were discussed with the patient and informed consent was obtained. Instrument: Olympus GIF H 190 J mid size upper endoscope Monitoring: Vital signs and clinical assessment, continuous EKG monitoring, Pulse oximetry, Carbon Dioxide monitoring and blood pressure monitoring were done throughout the procedure. Procedure: The patient was placed in the left lateral decubitis position and pre-procedure medications were administered and a bite block was placed. The endoscope was inserted into the mouth and advanced under direct vision to the third part of duodenum. A careful inspection was made as the upper endoscope was withdrawn including a retroflexed examination of the proximal stomach; Findings and interventions are described below. Findings: Larynx:normal, mild erythema at vocal cords Esophagus: GE junction at 36? cm, diaphragm hiatus at 36 cm, balloon dilation done to 19 mm at GEj and 19 mm at the UES, no tears seen, CLANCY attached at 30 cm Stomach: Patchy gastric erythema. Grade 2 flap valve on retroflexed examination of the cardia. Duodenum: Normal bulb and descending duodenum, Intervention: Clancy placement balloon dilation Impression/Findings: mild gastritis mild laryngitis PLAN: cont with medications as doing, await clancy on treatment
[2022-04-25 12:57] VITALS: BP 114/58; PULSE 107; RESP 18; TEMP 37; O2SAT 98
[2022-04-25 13:12] VITALS: BP 121/77; PULSE 96; RESP 18; O2SAT 99
[2022-04-25 13:27] VITALS: BP 132/82; PULSE 98; RESP 18; TEMP 37.1; O2SAT 99
== END 2022-04-25 14:03 | disposition home or self-care (01) ==
PROVIDERS: Nurse Practitioner; PCP Internal Medicine; Visit Provider Internal Medicine Gastroenterology
PROC: (CPT 43249; principal; 2022-04-25 12:30)
DX: R10.10 Upper abdominal pain, unspecified (principal); R19.7 Diarrhea, unspecified; K29.60 Other gastritis without bleeding; J04.0 Acute laryngitis; K44.9 Diaphragmatic hernia without obstruction or gangrene; K31.84 Gastroparesis; D64.9 Anemia, unspecified; J45.909 Unspecified asthma, uncomplicated; I47.1 Supraventricular tachycardia; G90.A Postural orthostatic tachycardia syndrome [POTS]; F41.1 Generalized anxiety disorder; D89.40 Mast cell activation, unspecified; Z79.82 Long term (current) use of aspirin; Z79.899 Other long term (current) drug therapy; Z88.8 Allergy status to other drugs, medicaments and biological substances; Z90.49 Acquired absence of other specified parts of digestive tract
CPT/HCPCS: 43249; 81025; C1726; J2250

== ENCOUNTER → 2022-05-04 12:52 | Outpatient (BNVA) | payer OTHER, SELFPAY | PROVIDERS: PCP Internal Medicine; Visit Provider Advanced Practice Midwife | DX: Z13.89 Encounter for screening for other disorder (principal) ==

== ENCOUNTER → 2022-05-12 09:35 | Outpatient (BNVA) | payer OTHER, SELFPAY | PROVIDERS: PCP Internal Medicine; Visit Provider Internal Medicine Gastroenterology | DX: Z13.89 Encounter for screening for other disorder (principal) ==

== ENCOUNTER 2022-06-06 10:09 | Outpatient (REF) | payer OTHER, SELFPAY ==
--- NOTE | ~2022-06-06 | MM_ITS ---
EXAMINATION: MM SCREENING DIGITAL BREAST TOMOSYNTHESIS, BILATERAL CLINICAL INFORMATION: Screening. Asymptomatic. The lifetime risk of breast cancer based on the Tyrer-Cuzick Model is 12.3%. COMPARISON: Mammography: May 31, 2021 and May 20, 2020 TECHNIQUE: Digital breast tomosynthesis is performed in both the craniocaudal and mediolateral oblique views along with computer-aided detection (CAD). Synthesized 2D images are generated from the tomosynthesis. FINDINGS: The breasts are extremely dense, which lowers the sensitivity of mammography (ACR BI-RADS breast composition Category d). There are no significant masses, abnormal calcifications, or other abnormalities. MM/MM tomosynthesis screening BI IMPRESSION: No significant changes from prior exam. ASSESSMENT: BI-RADS 1: Negative RECOMMENDATION: Routine annual mammography screening. This patient's information was entered into a reminder system with a target due date for their next mammogram.
== END 2022-06-06 10:10 | disposition home or self-care (01) ==
LOC: HO.MAMMO 10:09
PROVIDERS: PCP Internal Medicine; Visit Provider Internal Medicine
DX: Z12.31 Encounter for screening mammogram for malignant neoplasm of breast (principal)
CPT/HCPCS: 77063; 77067

== ENCOUNTER → 2022-06-26 09:51 | Outpatient (BNVA) | payer OTHER, SELFPAY | PROVIDERS: PCP Internal Medicine; Referring Provider Internal Medicine; Visit Provider Internal Medicine Gastroenterology ==

== ENCOUNTER 2022-11-14 13:09 | Outpatient (AMB) | payer OTHER, SELFPAY ==
[2022-11-14 13:19] VITALS: BP 126/62; PULSE 108; O2SAT 97; BMI 24.7
--- NOTE | 2022-11-14 13:19 | MHC.PC.OV ---
Vital Signs 11/14/22 13:19 Height 5 ft 3 in Weight 139 lb 8 oz BMI 24.7 BP 126/62 Blood Pressure Location Rt brachial Position Sitting Pulse 108 H Pulse Source Pulse Oximeter Pulse Oximetry (%) 97 Oxygen Delivery Method Room Air Intake Visit Reasons: Annual Physical Allergies prochlorperazine [From COMPAZINE] Allergy (Intermediate, Verified 11/14/22 13:31) DYSTONIC, muscle spasms Environmental Allergy (Intermediate, Uncoded 06/26/22 10:00) Runny Nose Medication List - Last Reconciled 11/14/22 by Keyon Fernandez MD amitriptyline 30 mg PO BEDTIME budesonide ER 9 mg (3 x 3 mg) PO DAILY cromolyn 200 mg (10 mL) PO QID 90 days epinephrine 1 mL IM NEEDED fludrocortisone 0.2 mg (2 x 0.1 mg) PO DAILY hyoscyamine sulfate 0.125 mg sublingual BID-TID PRN ivabradine (Corlanor) 5 mg PO BID 90 days gheayp-vtqhlqsv-esvenhd 24,000-76,000 -120,000 unit (Creon) 2 caps PO TID loratadine 1 tab PO DAILY montelukast 10 mg PO BEDTIME pantoprazole 40 mg PO DAILY sertraline 100 mg PO DAILY sumatriptan succinate (Imitrex) take 1 tab at onset of headache; if no relief may repeat 1 tab after at least 2 hrs; max = 4 tabs/24 hr PO Tobacco use date assessed: 11/14/22 Dental Screening Dental Screen Date: 11/14/22 Did you have a dental visit in the last 12 months?: No Did you have a dental problem in the last 6 months where you did not have access to dental care?: No Was dental information given to patient?: Patient declined HPI Annual Physical HPI Details Patient is 41-year-old female, this is a physical exam appointment Mammogram is up-to-date Patient is established with OBGYN for Gyne care Other providers patient seeing our astroenterologist Dr Werner Cardiology Dr. Paige Neurology Dr. Chino, for migraine headaches and is on amitriptyline 25 mg and propranolol through neurology Anxiety stable with sertraline 100 mg daily. She is on montelukast for allergies Follow-up 6 months [facility] Medical History Mast cell activation syndrome Anemia Postural orthostatic tachycardia syndrome Atrial tachycardia Anxiety Gastroparesis Asthma Surgical History History of Leonardo fundoplication Hx of colonoscopy H/O esophagogastroduodenoscopy Family History Mother Fibromyalgia Diabetes Sister No problems noted. Maternal Aunt Uterine cancer Social History Household Members: None [facility] Alcohol intake: former Patient Tobacco Use Status: Never used Tobacco e-Cigarette/Vaping Use: Never Used Second Hand Smoke Exposure: No service: No Current occupational status: employed ([employer]) Cognitive needs: No Hearing needs: No Vision needs: No Female Reproductive History Menstrual Age of Menarche: 9 Questionnaire PHQ-9 Over the last 2 weeks, how often have you been bothered by any of the following problems? 1. Little interest or pleasure in doing things: not at all 2. Feeling down, depressed, or hopeless: not at all 3. Trouble falling or staying asleep, or sleeping too much: several days 4. Feeling tired or having little energy: several days 5. Poor appetite or overeating: not at all 6. Feeling bad about yourself - or that you are a failure or have let yourself or your family down: not at all 7. Trouble concentrating on things, such as reading the newspaper or watching television: several days 8. Moving or speaking so slowly that other people could have noticed. Or the opposite - being so fidgety or restless that you have been moving around a lot more than usual: not at all 9. Thoughts that you would be better off or of hurting yourself in some way: not at all Total score: 3 Depression Screening Interpretation: Negative Depression Screening Done: Yes 75666 - PHQ-9 Billing: Yes Source: Developed by Drs. Rahat Mtz, Jaqueline Burrell, Shekhar Carlson and colleagues, with an educational delores from [employer]. Thrive Questionnaire Date Thrive assessed: 11/14/22 I am a: Patient What is your living situation today?: I have a steady place to live Within the past 12 months, did the food you bought not last and you didn't have the money to get more?: Never true Within the past 12 months, did you worry whether your food would run out before you got money to buy more?: Never true Do you have trouble paying for medicines?: No Do you have trouble getting transportation to medical appointments?: No Do you have trouble paying your heating and electricity bill?: No Do you have trouble taking care of your child, family member or friend?: No Do you have trouble with day-to-day activities such as bathing, preparing meals, shopping, managing finances, etc.?: No Are you currently unemployed and looking for a job?: No Are you interested in more education?: No AUDIT C Alcohol Use Questionnaire (AUDIT-C) 1. How often do you have a drink containing alcohol?: Never 3. How often do you have six or more drinks on one occasion?: Never Total Score: 0 Score Reviewed/Action Taken: Yes ANU-7 AMB Questionnaire ANU-7 Date ANU - 7 assessed: 11/14/22 Feeling nervous, anxious, or on edge: 1 = Several days Not being able to stop or control worryin = Not at all Worrying too much about different things: 0 = Not at all Trouble relaxin = Not at all Being so restless that it is hard to sit still: 0 = Not at all Becoming easily annoyed or irritable: 0 = Not at all Feeling afraid as if something awful might happen: 0 = Not at all Total ANU-7 score (0-4 normal; 5-9 mild; 10-14 moderate; 15-21 severe): 1 Source: Developed by Drs. Rahat Mtz, Jaqueline Burrell, Shekhar Carlson and colleagues, with an educational delores from [employer]. ANU-7 Assessment Billing ANU-7 Assessment Tool: ANU-7 Assessment 88460 Review of Systems Const Denies chills, Denies fever(s) and Denies headache(s) Eyes Denies blurry vision ENT Denies headache(s), Denies nasal discharge, Denies nasal obstruction, Denies odynophagia and Denies sinus pain Card Denies chest pain at rest and Denies chest pain with activity Resp Denies cough and Denies hemoptysis GI Denies diarrhea, Denies odynophagia, Denies vomiting and Denies hematemesis Reports as per HPI Musc Denies abnormal gait Skin/Breast Reports as per HPI Neuro Denies Neuro-related abnormal movements, Denies Abnormal speech present, Denies abnormal gait, Denies headache(s) and Denies Sensory deficit (Neuro) Psych Denies mood swings and Denies paranoia Endo Reports as per HPI Roland/Lymph Reports as per HPI Aller/Immun Reports as per HPI Physical exam (Primary Care) Vital Signs: Last Vital Signs Pulse 108 H 11/14/22 13:19 BP 126/62 11/14/22 13:19 Pulse Ox 97 11/14/22 13:19 Oxygen Delivery Method Room Air 11/14/22 13:19 BMI result Body Mass Index 24.7 Tobacco/Smoking Status: Tobacco use Status Tobacco use date assessed 11/14/22 11/14/22 13:20 Patient Tobacco Use Status Never used Tobacco 11/14/22 13:20 e-Cigarette/Vaping Use Never Used 11/14/22 13:20 PHQ-9: PHQ-9 Score PHQ-9: Total score 3 11/14/22 13:53 Depression Screening Interpretation: Negative Thrive Assessment: Date of Thrive Assessment Date Thrive assessed 11/14/22 11/14/22 13:53 Const General: cooperative, comfortable and no acute distress Orientation/consciousness: patient oriented x3 HENMT Head: Yes normocephalic and Yes atraumatic Eyes General: appearance normal, both eyes and all related structures Pupils: Equal, round and reactive pupils present EOM: EOMs intact bilaterally Neck Neck: Yes supple and No lymphadenopathy Thyroid: Thyroid normal Lymphatic: no lymphadenopathy noted Resp Effort & Inspection: normal respiratory effort and able to speak in complete sentences Auscultation: clear to auscultation bilaterally Cardio Heart sounds: S1 normal heart sound present and S2 normal heart sound present GI Palpation (GI): Soft to palpation and nontender Auscultation: normal bowel sounds General: Yes no CVA tenderness Back/Spine/Pelvis Back: no CVA tenderness Skin General skin exam: elasticity normal and turgor normal Neuro General: patient oriented x3 and gait normal Cranial nerves: Yes Equal, round and reactive pupils present Speech: No Abnormal speech present Sensory Exam: No Sensory deficit (Neuro) Coordination: tandem gait normal and Romberg test negative Extrem General: Yes normal exam except as noted and No edema Assessment and Plan Assessment & Plan (1) Encounter for general adult medical examination with abnormal findings: Code(s): Z00.01 - Encounter for general adult medical examination with abnormal findings (2) Anxiety, generalized: Code(s): F41.1 - Generalized anxiety disorder (3) Anxiety: Code(s): F41.9 - Anxiety disorder, unspecified Plan Patient is 41-year-old female, this is a physical exam appointment Mammogram is up-to-date Patient is established with OBGYN for Gyne care Other providers patient seeing our Infectious Disease Technician Dr Werner Cardiology Dr. Paige Neurology Dr. Chino, for migraine headaches and is on amitriptyline 25 mg and propranolol through neurology Anxiety stable with sertraline 100 mg daily. She is on montelukast for allergies Follow-up 6 months Orders: Orders Comprehensive [place]. Panel Fast Today F41.1 - Generalized anxiety disorder, F41.9 - Anxiety disorder, unspecified, Z00.01 - Encounter for general adult medical examination with abnormal findings Complete Blood Count Auto Diff Today F41.1 - Generalized anxiety disorder, F41.9 - Anxiety disorder, unspecified, Z00.01 - Encounter for general adult medical examination with abnormal findings Lipid Panel Today F41.1 - Generalized anxiety disorder, F41.9 - Anxiety disorder, unspecified, Z00.01 - Encounter for general adult medical examination with abnormal findings Coding Level of Care Code Est Pt Prev Care 40-64y(08769) Diagnoses Encounter for general adult medical examination with abnormal findings Z00.01 Anxiety, generalized F41.1 Anxiety F41.9 Additional Codes ANU-7 Assessment Billing - ANU-7 Assessment Tool: ANU-7 Assessment [id number] ([id number])
== END 2022-11-14 13:54 | disposition home or self-care (01) ==
PROVIDERS: Visit Provider Internal Medicine
DX: Z00.00 Encounter for general adult medical examination without abnormal findings (principal); F41.1 Generalized anxiety disorder; F41.9 Anxiety disorder, unspecified
CPT/HCPCS: 99396

== ENCOUNTER 2022-11-15 09:30 | Outpatient (REF) | payer OTHER, SELFPAY ==
[2022-11-15 09:45] LABS: MANUAL DIFF FLAG NO
[2022-11-15 10:15] LABS: Basophils Absolute Auto 0.1 X10*3/uL (0.0-0.2); Eosinophils Absolute Auto 0.2 X10*3/uL (0.0-0.4); Eosinophils Percent Auto 2.8 % (0-4); Hematocrit 36.8 % (37.0-47.0); Imm Gran Abs Auto 0.02 X10*3/uL (0.00-0.03); Imm Gran Pct Auto 0.3 % (0.0-0.4); Lymphocytes Absolute Auto 1.7 X10*3/uL (1.2-4.9); Lymphocytes Percent Auto 30.4 % (20-40); Mean Corpuscular HGB Conc 32.6 g/dl (31.0-35.0); Mean Corpuscular Hemoglobin 29.9 pg (27.0-33.0); Mean Corpuscular Volume 91.5 fL (80.0-98.0); Mean Platelet Volume 10.3 fL (9.4-12.3); Monocytes Absolute Auto 0.5 X10*3/uL (0.1-1.2); Monocytes Percent Auto 9.1 % (2-11); Neutrophils Absolute Auto 3.2 x10*3/uL (2.0-8.3); Neutrophils Percent Auto 56.4 % (45-73); Platelet Count 311 X10*3/uL (160-400); Red Blood Count 4.02 X10*6/uL (4.20-5.50); Red Cell Distribution Width 13.8 % (11.0-16.0); White Blood Count 5.7 X10*3/uL (4.8-10.8)
[2022-11-15 11:05] LABS: Alanine Aminotransferase 19 U/L (0-31); Alkaline Phosphatase 63 U/L (39-117); Anion Gap 13 (12-20); Aspartate Amino Transferase 19 U/L (5-31); Bilirubin Total 0.3 mg/dL (0.0-1.0); Blood Urea Nitrogen 10 mg/dL (9-16); Carbon Dioxide 32 mmol/L (22-29); Chloride 103 mmol/L (96-108); Cholesterol 156 mg/dL (<200); Estimated Glomerular Filt Rate > 60; Glucose Fasting 83 mg/dL (60-99); HDL Cholesterol 48 mg/dL (>40); LDL Cholesterol Calculated 90 mg/dL (<100); Potassium 3.8 mmol/L (3.3-5.1); Sodium 144 mmol/L (135-145); Total Protein 6.7 g/dL (6.5-8.0); Triglycerides 92 mg/dL (<150)
== END 2022-11-15 09:31 | disposition home or self-care (01) ==
LOC: HO.LAB 09:30
PROVIDERS: PCP Internal Medicine; Visit Provider Internal Medicine
DX: Z00.01 Encounter for general adult medical examination with abnormal findings (principal); F41.9 Anxiety disorder, unspecified; F41.1 Generalized anxiety disorder
CPT/HCPCS: 36415; 80053; 80061; 85025

== ENCOUNTER 2022-12-29 09:49 | Outpatient (AMB) | payer OTHER, SELFPAY ==
--- NOTE | 2022-12-29 09:54 | A.OFFVIS_ITS ---
Intake Vital Signs 12/29/22 09:59 Height 5 ft 3 in Weight 138 lb BMI 24.4 BP 132/61 Blood Pressure Location Lt brachial Position Sitting Pulse 102 H Intake Visit Reasons: 6 months follow up Intake Note: Patient 6 month follow up abdominal pain Patient cc: Abdominal pain with some bloating on and off, diarrhea and some swallowing problems with solid and liquid. 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 She has had diarrhea for years, loose and water like ? occasionally normal but not often ? no blood in stool ? vice grey iron molder pain in upper abdomen ? usu worse within an hour of eating ? occ nausea, ? worried abt crohns disease due to cousin who has it ? 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 occ mental fogginess she did try rifaximin in past but never helped ? ? ? Labs and stool testing normal incl c diff, TSH ? EGD/Colonoscopy 05/2018- essentially normal, bx ok. ? VCE: was normal but didn;t reach cecum ? MRe- constipation, no active inflammation ? RAST- pos for allergy to egg white and hazelnut ? tryptase x 2 elevated at 15, plasma histamine 3.4 ? fecal elastase--normal ? fecal fat neg ? calprotectin borderline ? she felt welchol was giving her epigastric pain and cut down ? levsin was helping her most of the time ? ? 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 maybe xolair has helped a little EXAM: GENERAL: The patient is well developed and nontoxic. VITAL SIGNS:see workflow HEENT: Nonicteric sclerae, PERRLA, EOMI. Oropharynx clear. Moist mucous membranes. Conjunctivae appear well perfused. No thyroid mass. CHEST: Chest wall is nontender. HEART: Regular rate and rhythm without murmurs. LUNGS: Clear to auscultation bilaterally. ABDOMEN: Soft, positive bowel sounds, nontender, no organomegaly.no flank tend erness SKIN: No rash, no excessive bruising, petechiae, or purpura. NEUROLOGIC: Cranial nerves II-XII intact without motor/sensory deficit. MS: nml Assessment & Plan 1 Elevated serum tryptase--being monitor ed 2 Mast cell disorder:partial control, f/ u with allergy, maxed out on treatments still having diarrhea and pain, on aspirin as well ?3/ upper abdominal pain, similar to pain from prior GB disease--neg US--could be related to MIRYAM ? ? ? Plan: 1/ Trial of low dose baclofen and see if helps the regurgitation/rumination 2/ repeat EGd with dilation prn?--oc kaplan with irena--[facility] for Jan [facility] Medical History Mast cell activation syndrome Anemia Postural orthostatic tachycardia syndrome Atrial tachycardia Anxiety Gastroparesis Asthma Surgical History History of Leonardo fundoplication Hx of colonoscopy H/O esophagogastroduodenoscopy Family History Mother Fibromyalgia Diabetes Sister No problems noted. Maternal Aunt Uterine cancer Social History Household Members: None Housing: Condominium Alcohol intake: former Patient Tobacco Use Status: Never used Tobacco e-Cigarette/Vaping Use: Never Used Second Hand Smoke Exposure: No service: No Current occupational status: employed ([employer]) Cognitive needs: No Hearing needs: No Vision needs: No Female Reproductive History Menstrual Age of Menarche: 9 Physical Exam Vital Signs: Last Vital Signs Pulse 102 H 12/29/22 09:59 BP 132/61 12/29/22 09:59 BMI result Body Mass Index 24.4 Assessment & Plan Assessment & Plan (1) Elevated serum tryptase: Code(s): R74.8 - Abnormal levels of other serum enzymes (2) Elevated serum tryptase: Code(s): R74.8 - Abnormal levels of other serum enzymes (3) Regurgitant esophagitis: Code(s): K21.00 - Gastro-esophageal reflux disease with esophagitis, without bleeding Medications: New baclofen 5 mg PO BEDTIME 20 tabs 0RF Refilled hyoscyamine sulfate 0.125 mg sublingual BID-TID PRN 252 tabs 1RF for muscle spasm Discontinued budesonide ER Discontinued Reason: Doctor's Order 9 mg (3 x 3 mg) PO DAILY 270 caps 0RF Coding Level of Care Code Est Pt Level 3 (91109) Diagnoses Elevated serum tryptase R74.8 Regurgitant esophagitis K21.00
[2022-12-29 09:59] VITALS: BP 132/61; PULSE 102; BMI 24.4
== END 2022-12-29 10:51 | disposition home or self-care (01) ==
PROVIDERS: PCP Internal Medicine; Visit Provider Internal Medicine Gastroenterology
DX: R74.8 Abnormal levels of other serum enzymes (principal); K21.00 Gastro-esophageal reflux disease with esophagitis, without bleeding
CPT/HCPCS: 99213

== ENCOUNTER → 2022-12-29 09:49 | Outpatient (BNVA) | payer OTHER, SELFPAY | PROVIDERS: Visit Provider Internal Medicine Gastroenterology ==

== ENCOUNTER 2023-01-31 09:48 | Day surgery (SDC) | payer OTHER, SELFPAY ==
[2023-01-29 15:16] VITALS: BMI 24.4
--- NOTE | 2023-01-30 12:20 | HO.ANESPROP2 ---
Documented by User: Natividad Pitts NP 01/30/23 12:22 HPI - Anesthesia Eval Consult details Narrative: 42yo F for Upper Endoscopy with Balloon Dilitation s/p EGD [place] 04/2022 with MAC Mast Cell Activ Syndrome. H blockers preop POTS PMFSH Active Problems Active Problems: All Active Problems (Updated 12/29/22 @ 10:43 by Tiffanie Werner MD) Regurgitant esophagitis (Acute) Upper abdominal pain (Acute) Encounter for annual routine gynecological examination (Acute) Anxiety, generalized (Acute) Vitamin A deficiency (Acute) Hypoglycemia (Acute) Encounter for general adult medical examination with abnormal findings (Acute) Palpitations (Acute) Environmental allergies (Acute) Headache syndrome (Acute) Breast screening (Acute) Mast cell disorder (Acute) Elevated serum tryptase (Acute) Elevated serum tryptase (Acute) Anemia (Acute) Postural orthostatic tachycardia syndrome (Acute) Anxiety (Acute) Past Medical History Medical History (Updated 12/29/22 @ 10:43 by Tiffanie Werner MD) Mast cell activation syndrome Anemia Postural orthostatic tachycardia syndrome Atrial tachycardia Anxiety Gastroparesis Asthma Family History Family History Mother Fibromyalgia Diabetes Sister No problems noted. Maternal Aunt Uterine cancer Surgical History Surgical History (Updated 01/29/23 @ 15:13 by Deloris Sr RN) History of Leonardo fundoplication Hx of colonoscopy H/O esophagogastroduodenoscopy Social History Social History Household Members: None Housing: Condominium Alcohol intake: former Patient Tobacco Use Status: Never used Tobacco e-Cigarette/Vaping Use: Never Used Second Hand Smoke Exposure: No Are you DNR?: No Advance Directives: No Advance Directives Information Provided: Yes Nutrition Risks: No Nutritional Risk Patient : No FDLMP: 2 weeks ago service: No Current occupational status: employed ([employer]) Cognitive needs: No Hearing needs: No Vision needs: No Meds Allergies Allergy/AdvReac Type Severity Reaction Status Date / Time prochlorperazine Allergy Intermediate DYSTONIC, Verified 12/29/22 09:55 [From COMPAZINE] muscle spasms Environmental Allergy Intermediate Runny Nose Uncoded 06/26/22 10:00 Home Medications Medication Instructions Recorded Confirmed Last Taken Type loratadine 10 mg tablet 1 tab PO DAILY 12/01/19 01/29/23 Unknown History sumatriptan succinate 50 mg tablet See Rx Instructions PO .COMPLEX 03/05/20 01/29/23 Unknown History (Imitrex) epinephrine 0.3 mg/0.3 mL 1 ml IM NEEDED anaphylaxis 07/06/20 01/29/23 Unknown History injection, auto-injector amitriptyline 10 mg tablet 30 mg PO BEDTIME 03/08/21 01/29/23 Unknown History budesonide 3 mg 9 mg PO DAILY 01/29/23 01/29/23 Unknown History capsule,delayed,extended release Exam Height,Weight and Vital Signs: Height 5 ft 3 in Weight 62.596 kg Pertinent Lab Results Pertinent Lab Results: Laboratory Tests 11/15/22 09:35 WBC 5.7 Hgb 12.0 Hct 36.8 L Plt Count 311 Sodium 144 Potassium 3.8 Chloride 103 Carbon Dioxide 32 H BUN 10 Creatinine 0.70 Assessment and Plan Assessment Anesthesia Assessment: Chart Reviewed Documented by User: Fransisca Ellis MD 01/31/23 10:34 [facility] Past Medical History Medical History (Updated 12/29/22 @ 10:43 by Tiffanie Werner MD) Mast cell activation syndrome Anemia Postural orthostatic tachycardia syndrome Atrial tachycardia Anxiety Gastroparesis Asthma Family History Family History Mother Fibromyalgia Diabetes Sister No problems noted. Maternal Aunt Uterine cancer Family history of problems with anesthesia: No Surgical History Surgical History (Updated 01/29/23 @ 15:13 by Deloris Sr RN) History of Leonardo fundoplication Hx of colonoscopy H/O esophagogastroduodenoscopy History of Problems with Anesthesia: No Social History Social History Household Members: None Housing: Condominium Alcohol intake: former Patient Tobacco Use Status: Never used Tobacco e-Cigarette/Vaping Use: Never Used Second Hand Smoke Exposure: No Are you DNR?: No Advance Directives: No Advance Directives Information Provided: Yes Nutrition Risks: No Nutritional Risk Patient : No FDLMP: 2 weeks ago service: No Current occupational status: employed ([employer]) Cognitive needs: No Hearing needs: No Vision needs: No Meds Allergies Allergy/AdvReac Type Severity Reaction Status Date / Time prochlorperazine Allergy Intermediate DYSTONIC, Verified 12/29/22 09:55 [From COMPAZINE] muscle spasms Environmental Allergy Intermediate Runny Nose Uncoded 06/26/22 10:00 Home Medications Medication Instructions Recorded Confirmed Last Taken Type loratadine 10 mg tablet 1 tab PO DAILY 12/01/19 01/29/23 Unknown History sumatriptan succinate 50 mg tablet See Rx Instructions PO .COMPLEX 03/05/20 01/29/23 Unknown History (Imitrex) epinephrine 0.3 mg/0.3 mL 1 ml IM NEEDED anaphylaxis 07/06/20 01/29/23 Unknown History injection, auto-injector amitriptyline 10 mg tablet 30 mg PO BEDTIME 03/08/21 01/29/23 Unknown History budesonide 3 mg 9 mg PO DAILY 01/29/23 01/29/23 Unknown History capsule,delayed,extended release Exam Airway Mallampati Class: II TM Dist: >3cm Neck ROM: Full Heart: rrr Lungs: cta Assessment and Plan Assessment Anesthesia Assessment: Anesthesia Plan Discussed Final Anesthetic Review Family History of Problems with Anesthesia: No History of Problems with Anesthesia: No NPO: Yes ASA Class: III Final Preanesthetic Review: No Changes in Pt Med Stat, Meds/Allgs Chart Reviewed and Consent Obtained/Reviewed Patient Risk: Intermediate Procedure Risk: Low Anesthetic Plan Anesthetic Plan: MAC: Disposition: Standard PACU
[2023-01-31 10:15] VITALS: BMI 24.7
[2023-01-31] MEDS: diphenhydrAMINE HCL 25 MG CAPSULE PO (10:20)
[2023-01-31 10:25] VITALS: BP 132/91; PULSE 96; RESP 19; TEMP 36.9; O2SAT 98
[2023-01-31 10:25] LABS: UPreg QC Valid YES; Urine Pregnancy NEGATIVE (NEGATIVE)
[2023-01-31] MEDS: Famotidine/PF 20 MG/2 ML VIAL IVPUSH (10:35)
[2023-01-31] MEDS: Lactated Ringers 1,000 ML 100 ML IVCONT (10:40)
--- NOTE | 2023-01-31 12:00 | P.HPSUR_ITS ---
Pre-Procedural Eval Section A Date of Service: 01/31/23 Section B Chief Complaint: Upper abdominal pain,dysphagia Relevant Family History (Specify if Yes): No Relevant Social History: None Present Medications: see Short Stay Collaborative assessment Medical History: Significant History (Mast cell activation syndrome Anemia Postural orthostatic tachycardia syndrome Atrial tachycardia Anxiety Gastropares is Asthma) History of Previous Operations: Relevant previous surgery/procedure and date(s) (tory of Leonardo fundoplication Hx of colonoscopy H/O esophagogastroduode) Allergies: Allergies Allergy/AdvReac Type Severity Reaction Status Date / Time prochlorperazine Allergy Intermediate DYSTONIC, Verified 12/29/22 09:55 [From COMPAZINE] muscle spasms Environmental Allergy Intermediate Runny Nose Uncoded 06/26/22 10:00 Review of Systems Sugical H&P ROS: Negative: Constitution, Cardiovascular, Respiratory, Neurological, Psychiatric, Hem-Onc, Allergic/Immunologic, Gastrointestinal, Genitourinary, Musculoskeletal, Integumentary, Endocrine and Ey es/Ears/Nose/Throat Exam Surgical H&P Exam: Normal: HEENT, Normal: Heart, Normal: Lungs, Normal: Extremities, Normal: Abdomen, Normal: Skin and Normal: Neurological Plan Diagnosis/Plan: Unchanged I have reviewed the history and physical and performed a pertinent physical examination on my patient. No changes have occurred unless specified. Time Spent With Patient Time: Total time managing care of this patient today ____ minutes.
--- NOTE | 2023-01-31 12:01 | W.PM.OPN ---
Operative Note Operative Note Date of Service: 01/31/23 Narrative: Procedure Description: EGD Indication: dysphagia Anesthesia: MAC FLEXIBLE TRANSORAL UPPER GASTROINTESTINAL ENDOSCOPY UPPER ENDOSCOPY Consent: Indications for the procedure and potential complications of bleeding, perforation, reaction to medications and missed diagnosis were discussed with the patient and informed consent was obtained. Instrument: Olympus GIF H 190 J mid size upper endoscope Monitoring: Vital signs and clinical assessment, continuous EKG monitoring, Pulse oximetry, Carbon Dioxide monitoring and blood pressure monitoring were done throughout the procedure. Procedure: The patient was placed in the left lateral decubitis position and pre-procedure medications were administered and a bite block was placed. The endoscope was inserted into the mouth and advanced under direct vision to the third part of duodenum. A careful inspection was made as the upper endoscope was withdrawn including a retroflexed examination of the proximal stomach; Findings and interventions are described below. Findings: Larynx:normal, Esophagus: GE junction at 36? cm, diaphragm hiatus at 36 cm, 17 mm bougie dilation done using savary wire and tear noted at GEJ with bleeding, x 3 clips applied for hemostasis Stomach: normal. prior fundoplication noted-some bile acid refluxate noted Duodenum: Normal bulb and descending duodenum, Intervention: savary wire dilation Impression/Findings: esophageal stricture with tear bile acid reflux PLAN: cont with medications as doing magic mouthwash for 1 week
[2023-01-31 12:42] VITALS: BP 108/56; PULSE 96; RESP 20; TEMP 36.2; O2SAT 97
[2023-01-31] MEDS: Mag&Al/Sim/Diphenhyd/Lidocaine 10 ML ORAL.SUSP PO (12:55)
[2023-01-31 12:57] VITALS: BP 130/75; PULSE 98; RESP 17; O2SAT 100
[2023-01-31 13:14] VITALS: BP 130/76; PULSE 91; RESP 18; TEMP 36.1; O2SAT 99
== END 2023-01-31 13:39 | disposition home or self-care (01) ==
PROVIDERS: Nurse Practitioner; PCP Internal Medicine; Visit Provider Internal Medicine Gastroenterology
PROC: (CPT 43248; principal; 2023-01-31 12:50)
DX: R13.10 Dysphagia, unspecified (principal); R10.10 Upper abdominal pain, unspecified; K44.9 Diaphragmatic hernia without obstruction or gangrene; K22.6 Gastro-esophageal laceration-hemorrhage syndrome; K31.84 Gastroparesis; E78.70 Disorder of bile acid and cholesterol metabolism, unspecified; D64.9 Anemia, unspecified; D89.40 Mast cell activation, unspecified; G90.A Postural orthostatic tachycardia syndrome [POTS]; I47.19 Other supraventricular tachycardia; J45.909 Unspecified asthma, uncomplicated; F41.9 Anxiety disorder, unspecified; Z79.899 Other long term (current) drug therapy; Z88.8 Allergy status to other drugs, medicaments and biological substances; Z98.890 Other specified postprocedural states
CPT/HCPCS: 43248; 81025; C1769; J2704

== ENCOUNTER → 2023-01-31 09:48 | Outpatient (BNV) | payer OTHER, SELFPAY | PROVIDERS: PCP Internal Medicine; Visit Provider Internal Medicine Gastroenterology | DX: R13.10 Dysphagia, unspecified (principal); K22.2 Esophageal obstruction; K21.9 Gastro-esophageal reflux disease without esophagitis | CPT/HCPCS: 43248 ==

== ENCOUNTER 2023-03-09 10:48 | Outpatient (AMB) | payer OTHER, SELFPAY ==
[2023-03-09 10:52] VITALS: BP 132/75; PULSE 114; BMI 24.2
--- NOTE | 2023-03-09 10:52 | A.OFFVIS_ITS ---
Intake Vital Signs 03/09/23 10:52 Height 5 ft 3 in Weight 136 lb 10.986 oz BMI 24.2 BP 132/75 Blood Pressure Location Lt brachial Position Sitting Pulse 114 H Intake Visit Reasons: S/p egd Intake Note: Natividad presents in the office as a follow up EGD. CC: No concerns since her procedure. Nursery Rn Required: No Allergies prochlorperazine [From COMPAZINE] Allergy (Intermediate, Verified 03/09/23 10:52) DYSTONIC, muscle spasms Environmental Allergy (Intermediate, Uncoded 03/09/23 10:52) Runny Nose HPI S/p egd HPI Details 42 yr old f here for f/u RECAP: ? She has had diarrhea for years, loose and water like ? occasionally normal but not often ? no blood in stool ? 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 usu worse within an hour of eating ? occ nausea, ? worried abt crohns disease due to cousin who has it ? 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 occ mental fogginess she did try rifaximin in past but never helped ? ? ? Labs and stool testing normal incl c diff, TSH ? EGD/Colonoscopy 05/2018- essentially normal, bx ok. ? VCE: was normal but didn;t reach cecum ? MRe- constipation, no active inflammation ? RAST- pos for allergy to egg white and hazelnut ? tryptase x 2 elevated at 15, plasma histamine 3.4 ? fecal elastase--normal ? fecal fat neg ? calprotectin borderline ? she felt welchol was giving her epigastric pain and cut down ? levsin was helping her most of the time ? ? she was referred to hematology due to sx and and high tryptase, had BM bx done, no evidence of systemic mastocytosis t this time seeing insurance verification specialist , and ketotifen may be an additional agent used for sx also discussion about checking for early Systemic mastocysosis with CKIT mutation analysis She had EGD 06/2020 with dilation due to dysphagia she was changed to dexilant--------stopped it due to abdominal pain she got the allergy shots for dander and mold, and still has several more darrian tments to go with her credit consultant Repeat EGD 05/2021--balloon dilation, bx for mast cells with high numbers in duodenum, vocal cord erythema EGD with dilation and reilly: 04/25/22 mild gastritis mild laryngitis REILLY: neg demeester, neg SAP--on PPI US was normal EGD with dilation 02/03--some bile refluxate noted INTERIM: She feesl better since dialtion still has rumination with food coming back up without any discomfort then swallowed again has regurgitation to solids and liquids but goes back down --no distress with that mast cell dx under control except when has periods EXAM: GENERAL: The patient is well developed and nontoxic. VITAL SIGNS:see workflow HEENT: Nonicteric sclerae, PERRLA, EOMI. Oropharynx clear. Moist mucous membranes. Conjunctivae appear well perfused. No thyroid mass. CHEST: Chest wall is nontender. HEART: Regular rate and rhythm without murmurs. LUNGS: Clear to auscultation bilaterally. ABDOMEN: Soft, positive bowel sounds, nontender, no organomegaly.no flank tenderness SKIN: No rash, no excessive bruising, petechiae, or purpura. NEUROLOGIC: Cranial nerves II-XII intact without motor/sensory deficit. MS: nml Assessment & Plan 1 Elevated serum tryptase--being monitor ed 2 Mast cell disorder:partial control, f/ u with allergy, maxed out on treatments still having diarrhea and pain, on aspirin as well?3/ upper abdominal pain, similar to pain from prior GB disease--neg US--could be related to MIRYAM 3. 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 ? ? Plan: 1/ diaphragmatic breathing exercises, if ongoing sx then refer manometry 2/ repeat EGD prn 3/ advised to talk to personal property assessor, might benefit from OCP or depo to control periods PFSH Medical History (Updated 12/29/22 @ 10:43 by Tiffanie Werner MD) Mast cell activation syndrome Anemia Postural orthostatic tachycardia syndrome Atrial tachycardia Anxiety Gastroparesis Asthma Surgical History (Updated 01/29/23 @ 15:13 by Deloris Sr RN) History of Leonardo fundoplication Hx of colonoscopy H/O esophagogastroduodenoscopy Family History Mother Fibromyalgia Diabetes Sister No problems noted. Maternal Aunt Uterine cancer Social History Household Members: None Housing: Condominium Alcohol intake: former Patient Tobacco Use Status: Never used Tobacco e-Cigarette/Vaping Use: Never Used Second Hand Smoke Exposure: No service: No Current occupational status: employed ([employer]) Cognitive needs: No Hearing needs: No Vision needs: No Female Reproductive History Menstrual Age of Menarche: 9 Physical Exam Vital Signs: Last Vital Signs Pulse 114 H 03/09/23 10:52 BP 132/75 03/09/23 10:52 BMI result Body Mass Index 24.2 Assessment & Plan Assessment & Plan (1) Mast cell disorder: Code(s): D47.09 - Other mast cell neoplasms of uncertain behavior Plan: 1 Elevated serum tryptase--being monitored 2 Mast cell disorder:partial control, f/u with allergy, maxed out on treatments still having diarrhea and pain, on aspirin as well?3/ upper abdominal pain, similar to pain from prior GB disease--neg US--could be related to MIRYAM 3. 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 ? ? Plan: 1/ diaphragmatic breathing exercises, if ongoing sx then refer manometry 2/ repeat EGD prn 3/ advised to talk to personal property assessor, might benefit from OCP or depo to control periods (2) Regurgitant esophagitis: Code(s): K21.00 - Gastro-esophageal reflux disease with esophagitis, without bleeding Plan: 1 Elevated serum tryptase--being monitored 2 Mast cell disorder:partial control, f/u with allergy, maxed out on treatments still having diarrhea and pain, on aspirin as well?3/ upper abdominal pain, similar to pain from prior GB disease--neg US--could be related to MIRYAM 3. 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 ? ? Plan: 1/ diaphragmatic breathing exercises, if ongoing sx then refer manometry 2/ repeat EGD prn 3/ advised to talk to personal property assessor, might benefit from OCP or depo to control periods Coding Level of Care Code Est Pt Level 3 (42610) Diagnoses Mast cell disorder D47.09 Regurgitant esophagitis K21.00
== END 2023-03-09 11:16 | disposition home or self-care (01) ==
PROVIDERS: PCP Internal Medicine; Referring Provider Internal Medicine; Visit Provider Internal Medicine Gastroenterology
DX: D47.09 Other mast cell neoplasms of uncertain behavior (principal); K21.00 Gastro-esophageal reflux disease with esophagitis, without bleeding
CPT/HCPCS: 99213

== ENCOUNTER → 2023-03-09 10:48 | Outpatient (BNVA) | payer OTHER, SELFPAY | PROVIDERS: PCP Internal Medicine; Visit Provider Internal Medicine Gastroenterology ==

== ENCOUNTER 2023-04-30 08:45 | Outpatient (AMB) | payer OTHER, SELFPAY ==
--- NOTE | 2023-04-30 08:47 | MHC.OFFVIS ---
Intake Vital Signs 04/30/23 08:50 Height 5 ft 3 in Weight 134 lb 7.712 oz BMI 23.8 BP 134/76 Blood Pressure Location Lt brachial Position Sitting Pulse 107 H Intake Visit Reasons: 4 month follow up Elevated serum tryptase Intake Note: Natividad presents in the office as a 4 month follow up. CC: She states that she is having all the same concerns as she did before. 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 VCE: was normal but didn;t reach cecum MRe- constipation, no active inflammation RAST- pos for allergy to egg white and hazelnut tryptase x 2 elevated at 15, plasma histamine 3.4 fecal elastase--normal fecal fat neg calprotectin borderline she felt welchol was giving her epigastric pain and cut down levsin was helping her most of the time she was referred to hematology due to sx and and high tryptase, had BM bx done, no evidence of systemic mastocytosis t this time seeing warehouse distribution specialist , and ketotifen may be an additional agent used for sx also discussion about checking for early Systemic mastocysosis with CKIT mutation analysis She had EGD 06/2020 with dilation due to dysphagia she was changed to dexilant--------stopped it due to abdominal pain she got the allergy shots for dander and mold, and still has several more treatments to go with her bridge expert Repeat EGD 05/2021--balloon dilation, bx for mast cells with high numbers in duodenum, vocal cord erythema EGD with dilation and clancy: 04/25/22 mild gastritis mild laryngitis CLANCY: neg demeester, neg SAP--on PPI US was normal EGD with dilation 02/03--some bile refluxate noted INTERIM: She has ongoing epigastric pain feels like pressure and tightening around that area levsin usually helps with that severity can be between 3-7/10 it seems to be more frequent, once or twice a week no associated nausea or vomiting swallowing has been good EXAM: GENERAL: The patient is well developed and nontoxic. VITAL SIGNS:see workflow HEENT: Nonicteric sclerae, PERRLA, EOMI. Oropharynx clear. Moist mucous membranes. Conjunctivae appear well perfused. No thyroid mass. CHEST: Chest wall is nontender. HEART: Regular rate and rhythm without murmurs. LUNGS: Clear to auscultation bilaterally. ABDOMEN: Soft, positive bowel sounds, nontender, no organomegaly.no flank tenderness SKIN: No rash, no excessive bruising, petechiae, or purpura. NEUROLOGIC: Cranial nerves II-XII intact without motor/sensory deficit. MS: nml Assessment & Plan 1 Elevated serum tryptase--being monitored 2 Mast cell disorder: overall control is good 3. 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 Epigastric pain, better with levsin ?related to MIRYAM or spasm, IBS Plan: 1/ US abdo and labs r/o biliary path 2/ trial of gabapentin 100 mg and assess response [facility] Medical History Mast cell activation syndrome Anemia Postural orthostatic tachycardia syndrome Atrial tachycardia Anxiety Gastroparesis Asthma Surgical History History of Leonardo fundoplication Hx of colonoscopy H/O esophagogastroduodenoscopy Family History Mother Fibromyalgia Diabetes Sister No problems noted. Maternal Aunt Uterine cancer Social History Household Members: None Housing: Condominium Alcohol intake: former Patient Tobacco Use Status: Never used Tobacco e-Cigarette/Vaping Use: Never Used Second Hand Smoke Exposure: No service: No Current occupational status: employed ([employer]) Cognitive needs: No Hearing needs: No Vision needs: No Female Reproductive History Menstrual Age of Menarche: 9 Physical Exam Vital Signs: Last Vital Signs Pulse 107 H 04/30/23 08:50 BP 134/76 04/30/23 08:50 BMI result Body Mass Index 23.8 Assessment & Plan Assessment & Plan (1) Upper abdominal pain: Code(s): R10.10 - Upper abdominal pain, unspecified Plan: Plan: 1/ US abdo and labs r/o biliary path 2/ trial of gabapentin 100 mg and assess response Orders: Orders Complete Blood Count Auto Diff Today R10.10 - Upper abdominal pain, unspecified US abdomen complete Today R10.10 - Upper abdominal pain, unspecified Comprehensive Met. Panel Today K75.81 - Nonalcoholic steatohepatitis (HOLLAND), R10.10 - Upper abdominal pain, unspecified Tryptase Today R19.7 - Diarrhea, unspecified Medications: New gabapentin 100 mg PO BEDTIME 30 caps 1RF Coding Level of Care Code Est Pt Level 3 (17867) Diagnoses Upper abdominal pain R10.10
[2023-04-30 08:50] VITALS: BP 134/76; PULSE 107; BMI 23.8
== END 2023-04-30 09:33 | disposition home or self-care (01) ==
PROVIDERS: PCP Internal Medicine; Visit Provider Internal Medicine Gastroenterology
DX: R10.10 Upper abdominal pain, unspecified (principal)
CPT/HCPCS: 99213

== ENCOUNTER → 2023-04-30 08:45 | Outpatient (BNVA) | payer OTHER, SELFPAY | PROVIDERS: PCP Internal Medicine; Visit Provider Internal Medicine Gastroenterology ==

== ENCOUNTER 2023-05-01 10:52 | Outpatient (REF) | payer OTHER, SELFPAY ==
[2023-05-01 11:27] LABS: MANUAL DIFF FLAG NO
[2023-05-01 12:46] LABS: Basophils Absolute Auto 0.1 X10*3/uL (0.0-0.2); Basophils Percent Auto 1.3 % (0-2); Eosinophils Percent Auto 0.6 % (0-4); Hematocrit 35.2 % (37.0-47.0); Hemoglobin 11.6 g/dl (12.0-16.0); Imm Gran Abs Auto 0.01 X10*3/uL (0.00-0.03); Imm Gran Pct Auto 0.2 % (0.0-0.4); Lymphocytes Absolute Auto 1.9 X10*3/uL (1.2-4.9); Lymphocytes Percent Auto 30.2 % (20-40); Mean Corpuscular Hemoglobin 30.4 pg (27.0-33.0); Mean Corpuscular Volume 92.1 fL (80.0-98.0); Mean Platelet Volume 10.9 fL (9.4-12.3); Monocytes Absolute Auto 0.5 X10*3/uL (0.1-1.2); Monocytes Percent Auto 8.1 % (2-11); Neutrophils Absolute Auto 3.8 x10*3/uL (2.0-8.3); Neutrophils Percent Auto 59.6 % (45-73); Platelet Count 345 X10*3/uL (160-400); Red Blood Count 3.82 X10*6/uL (4.20-5.50); Red Cell Distribution Width 13.7 % (11.0-16.0); White Blood Count 6.4 X10*3/uL (4.8-10.8)
[2023-05-01 13:36] LABS: Alanine Aminotransferase 23 U/L (0-31); Albumin Level 4.1 g/dL (3.5-5.0); Alkaline Phosphatase 77 U/L (39-117); Anion Gap 13 (12-20); Aspartate Amino Transferase 27 U/L (5-31); Bilirubin Total 0.3 mg/dL (0.0-1.0); Blood Urea Nitrogen 14 mg/dL (9-16); Calcium 8.7 mg/dL (8.4-10.2); Carbon Dioxide 30 mmol/L (22-29); Chloride 106 mmol/L (96-108); Estimated Glomerular Filt Rate > 60; Glucose Random 67 mg/dL (60-115); Potassium 3.5 mmol/L (3.3-5.1); Sodium 145 mmol/L (135-145); Total Protein 6.8 g/dL (6.5-8.0)
== END 2023-05-01 10:53 | disposition home or self-care (01) ==
LOC: HO.LAB 10:52
PROVIDERS: PCP Internal Medicine; Visit Provider Internal Medicine Gastroenterology
DX: R10.10 Upper abdominal pain, unspecified (principal); R19.7 Diarrhea, unspecified; K75.81 Nonalcoholic steatohepatitis (NASH)
CPT/HCPCS: 36415; 80053; 83520; 85025

== ENCOUNTER 2023-05-10 14:02 | Outpatient (AMB) | payer OTHER, SELFPAY ==
[2023-05-10 14:06] VITALS: BP 124/82; BMI 23.7
--- NOTE | 2023-05-10 14:06 | A.OFFVIS_ITS ---
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 Doing well with no concerns. Mass cell activation-menses w/headache, GI symptoms. She reports increased symptoms around a week before her period and during her cycle. She is discussed with her provider treatment options and was suggested she go on control to suppress her menses. She has a history of bicornuate uterus. She denies any contraindications to control such as: migraines with aura, history of DVT or pulmonary emboli, high blood pressure, liver disease, thrombolic disorders, Lupus, +MEHNAZ, breast cancer, or smoking. She tries to eat healthy and stays active with exercise. Regular monthly menses x 5-7d. Currently is not sexually active. She denies vaginal itching and irritation. STI screening offered; she accepts. Denies family history of breast, ovarian or colon cancer. Last pap smear 2018, negative. Mammogram: [facility] Medical History (Updated 05/10/23 @ 15:44 by Marisa Rodriguez CNM) Bicornuate uterus Mast cell activation syndrome Anemia Postural orthostatic tachycardia syndrome Atrial tachycardia Anxiety Gastroparesis Asthma Surgical History History of Leonardo fundoplication Hx of colonoscopy H/O esophagogastroduodenoscopy Family History Mother Fibromyalgia Diabetes Sister No problems noted. Maternal Aunt Uterine cancer Social History Household Members: None Housing: Condominium Alcohol intake: former Patient Tobacco Use Status: Never used Tobacco e-Cigarette/Vaping Use: Never Used Second Hand Smoke Exposure: No service: No Current occupational status: employed ([employer]) Cognitive needs: No Hearing needs: No Vision needs: No Female Reproductive History Menstrual Age of Menarche: 9 Duration of menses: 6-7 days Date of last menstrual period: 04/20/23 Total pregnancies: 0 Date of last pap smear: 08/07/18 (neg pap and hpv) Date of Mammogram: 06/06/22 (Birad 1) Review of Systems Const All systems reviewed & are unremarkable except as noted in HPI and below Reports as per HPI Eyes Reports no additional complaints ENT Reports no additional complaints Card Reports no additional complaints Resp Reports no additional complaints GI Reports as per HPI and Reports no additional complaints Reports as per HPI Musc Reports no additional complaints Skin/Breast Reports as per HPI Neuro Reports no additional complaints Psych Reports no additional complaints Endo Reports no additional complaints Roland/Lymph Reports no additional complaints Aller/Immun Reports no additional complaints Physical Exam Vital Signs: Last Vital Signs BP 124/82 05/10/23 14:06 BMI result Body Mass Index 23.7 Const General: cooperative, healthy appearing, no acute distress, well developed and alert Orientation/consciousness: patient oriented x3 HEENT Head: Yes normal to inspection Eyes General: appearance normal, both eyes and all related structures Neck Neck: Yes normal visual inspection Thyroid: Thyroid normal Chest Chest palpation & inspection: normal inspection of the chest and other (no puckering, dimpling, peau de orange, retraction, discharge, masses) Breast/axilla inspection: normal inspection of the breasts Breast/axilla palpation: normal palpation of the breasts Resp Effort & Inspection: normal respiratory effort GI Inspection: Yes normal to inspection Palpation (GI): Soft to palpation Rectal Exam - Female: deferred General: Yes bladder normal to palpation External Female Exam: normal external appearance and normal appearance of the urethra Speculum Exam - Vagina: normal appearance of the vagina, normal palpation and normal vaginal discharge Speculum Exam - Cervix: normal appearance of the cervix and normal palpation Bimanual exam- vagina & uterus: normal bimanual exam, normal palpation, uterine size normal, bladder normal to palpation, normal palpation and non-tender Bimanual Exam- Adnexa, other: no masses Skin General skin exam: no rashes or lesions noted Rashes: no rashes Neuro General: patient oriented x3 Cognition (Neuro): normal cognition Extrem General: Yes normal to inspection Psych Attitude: cooperative Thought process: Normal thought process present Assessment & Plan Assessment & Plan (1) Encounter for well woman exam with routine gynecological exam: Code(s): Z01.419 - Encounter for gynecological examination (general) (routine) without abnormal findings Plan Discussed: Current recommendations for pap smears per ASCCP guidelines. Breast awareness and periodic breast exams. Maintain a healthy lifestyle including a well balanced diet and routine exercise. Control Counseling Use and side effects of control: Instructed to start the pill within the first 5 days of the menstrual period. Recommended to take pill at same time every day and with food to prevent stomach upset. Switch to bedtime intake with food if still experiencing nausea. Consider setting the cell phone for alerts as a reminder to take the pill at the same time. Use a back up method (condoms or abstinence if needed) if any late or missed doses until the end of the pill pack. Take the dose as soon as possible, and take your regular pill on time. If you miss the pill often, then consider another option of control. Always use condoms for STI prevention if indicated. Instructed patient to take for at least 3 months the body is acclimated to it. Most side effects go away with time in the first three months. Continuous daily dosing use. Warnings: go to ED if and loss of vision/blindness, severe headache, chest pain or difficulty breathing, severe abdominal pain, or any pain or swelling in an extremity. Return in 3 months for pill check, or sooner if any concerns. All of her questions and concerns were addressed to the best of my ability and shared decision making. She is agreeable to plan of care. Mammogram yearly. Colonoscopy >45, or at risk sooner. Patient verbalizes understanding and agrees to the plan of care. She was given opportunity to ask questions and all questions were answered to the best of my ability. 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 This note is constructed using voice recognition software. While every effort has been made to ensure accuracy, handicapper harness racing errors may have been included. Orders: Orders Pap Smear Today Z01.419 - Encounter for gynecological examination (general) (routine) without abnormal findings Medications: New levonorgestrel-ethinyl estrad 0.15 mg-30 mcg (91) (Jolessa) 1 tab PO DAILY 91 ea 1RF Coding Level of Care Code Est Pt Prev Care 40-64y(82978) Diagnoses Encounter for well woman exam with routine gynecological exam Z01.419
== END 2023-05-10 14:31 | disposition home or self-care (01) ==
LOC: HO.HWS 14:02
PROVIDERS: Visit Provider Advanced Practice Midwife
DX: Z01.419 Encounter for gynecological examination (general) (routine) without abnormal findings (principal)
CPT/HCPCS: 99396

== ENCOUNTER 2023-05-10 14:02 | Outpatient (REF) | payer OTHER, SELFPAY ==
[2023-05-16 03:29] LABS: HPV mRNA E6/E7 rflx Not Detected (Not Detected)
== END 2023-05-10 14:03 | disposition home or self-care (01) ==
LOC: HO.LNP 14:02
PROVIDERS: Visit Provider Advanced Practice Midwife
DX: Z01.419 Encounter for gynecological examination (general) (routine) without abnormal findings (principal); Z11.51 Encounter for screening for human papillomavirus (HPV)
CPT/HCPCS: 87624; 88142

== ENCOUNTER 2023-05-15 13:12 | Outpatient (AMB) | payer OTHER, SELFPAY ==
[2023-05-15 13:13] VITALS: BP 122/76; PULSE 100; O2SAT 99; BMI 24.0
--- NOTE | 2023-05-15 13:13 | MHC.PC.OV ---
Vital Signs 05/15/23 13:13 Height 5 ft 3 in Weight 135 lb 6 oz BMI 24.0 BP 122/76 Blood Pressure Location Rt brachial Position Sitting Pulse 100 Pulse Source Pulse Oximeter Pulse Oximetry (%) 99 Oxygen Delivery Method Room Air Intake Visit Reasons: 6 month fu Allergies prochlorperazine [From COMPAZINE] Allergy (Intermediate, Verified 05/15/23 13:14) DYSTONIC, muscle spasms Environmental Allergy (Intermediate, Uncoded 04/30/23 08:50) Runny Nose Medication List - Last Reconciled 05/15/23 by Keyon Fernandez MD amitriptyline 30 mg PO BEDTIME budesonide ER 9 mg PO DAILY cromolyn 200 mg (10 mL) PO QID 90 days epinephrine 1 mL IM NEEDED fludrocortisone 0.2 mg (2 x 0.1 mg) PO DAILY gabapentin 100 mg PO BEDTIME hyoscyamine sulfate 0.125 mg sublingual BID-TID PRN ivabradine (Corlanor) 5 mg PO BID levonorgestrel-ethinyl estrad 0.15 mg-30 mcg (91) (Jolessa) 1 tab PO DAILY emqwpq-camijffi-zwnkrnm 24,000-76,000 -120,000 unit (Creon) 2 caps PO TID loratadine 1 tab PO DAILY montelukast 10 mg PO BEDTIME omalizumab (Xolair) mg subcut pantoprazole 40 mg PO DAILY sertraline 100 mg PO DAILY sumatriptan succinate (Imitrex) take 1 tab at onset of headache; if no relief may repeat 1 tab after at least 2 hrs; max = 4 tabs/24 hr PO Tobacco use date assessed: 05/15/23 Dental Screening Dental Screen Date: 05/15/23 Did you have a dental visit in the last 12 months?: No Did you have a dental problem in the last 6 months where you did not have access to dental care?: No Was dental information given to patient?: No HPI 6 month fu HPI Details Patient is 42-year-old female, this is a six-month follow-up appointment Patient is currently on sertraline 100 mg 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 Paige Neurology Dr. Chino, for migraine headaches and is on amitriptyline 25 mg and propranolol through neurology She has appointment for physical examination in November [facility] Medical History Bicornuate uterus Mast cell activation syndrome Anemia Postural orthostatic tachycardia syndrome Atrial tachycardia Anxiety Gastroparesis Asthma Surgical History History of Leonardo fundoplication Hx of colonoscopy H/O esophagogastroduodenoscopy Family History Mother Fibromyalgia Diabetes Sister No problems noted. Maternal Aunt Uterine cancer Social History Household Members: None [facility] Alcohol intake: former Patient Tobacco Use Status: Never used Tobacco e-Cigarette/Vaping Use: Never Used Second Hand Smoke Exposure: No service: No Current occupational status: employed ([employer]) Cognitive needs: No Hearing needs: No Vision needs: Yes Female Reproductive History Menstrual Age of Menarche: 9 Questionnaire Thrive Questionnaire Date Thrive assessed: 11/14/22 AUDIT C Alcohol Use Questionnaire (AUDIT-C) 1. How often do you have a drink containing alcohol?: Never 3. How often do you have six or more drinks on one occasion?: Never Total Score: 0 Score Reviewed/Action Taken: Yes ANU-7 AMB Questionnaire ANU-7 Date ANU - 7 assessed: 11/14/22 Source: Developed by Drs. Rahat Mtz, Jaqueline Burrell, Shekhar Carlson and colleagues, with an educational delores from [employer]. Review of Systems Const Denies chills and Denies fever(s) ENT Denies epistaxis and Denies nasal discharge Card Denies chest pain Resp Denies chest congestion, Denies cough and Denies hemoptysis GI Denies diarrhea and Denies nausea Skin/Breast Denies rash Neuro Reports no additional complaints Psych Reports no additional complaints Endo Reports no additional complaints Physical exam (Primary Care) Vital Signs: Last Vital Signs Pulse 100 05/15/23 13:13 BP 122/76 05/15/23 13:13 Pulse Ox 99 05/15/23 13:13 Oxygen Delivery Method Room Air 05/15/23 13:13 BMI result Body Mass Index 24.0 Tobacco/Smoking Status: Tobacco use Status Tobacco use date assessed 05/15/23 05/15/23 13:22 Patient Tobacco Use Status Never used Tobacco 05/15/23 13:14 e-Cigarette/Vaping Use Never Used 05/15/23 13:14 Thrive Assessment: Date of Thrive Assessment Date Thrive assessed 11/14/22 05/15/23 13:14 Const General: cooperative, comfortable and no acute distress Orientation/consciousness: patient oriented x3 HENMT Head: Yes normocephalic Eyes General: appearance normal, both eyes and all related structures Neck Neck: Yes supple Resp Effort & Inspection: normal respiratory effort, no cough and no stridor Cardio Rhythm: regular rhythm Heart sounds: S1 normal heart sound present and S2 normal heart sound present Skin General skin exam: turgor normal Neuro General: patient oriented x3, tone normal and moves all extremities Extrem Right lower extremity: no edema Left lower extremity: no edema Assessment and Plan Assessment & Plan (1) Anxiety, generalized: Code(s): F41.1 - Generalized anxiety disorder Plan Patient is 42-year-old female, this is a six-month follow-up appointment Patient is currently on sertraline 100 mg 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 Paige Neurology Dr. Chino, for migraine headaches and is on amitriptyline 25 mg and propranolol through neurology She has appointment for physical examination in November Medications: New buspirone 5 mg PO .q am 30 days PRN 30 tabs 0RF anxiety Coding Level of Care Code Est Pt Level 3 (42683) Diagnoses Anxiety, generalized F41.1
== END 2023-05-15 13:35 | disposition home or self-care (01) ==
PROVIDERS: PCP Internal Medicine; Visit Provider Internal Medicine
DX: F41.1 Generalized anxiety disorder (principal)
CPT/HCPCS: 99213

== ENCOUNTER 2023-05-22 07:34 | Outpatient (REF) | payer OTHER, SELFPAY ==
--- NOTE | ~2023-05-22 | US_ITS ---
EXAMINATION: US ABDOMEN COMPLETE CLINICAL INFORMATION: Upper abdominal pain, unspecified. Epigastric pain. COMPARISON: Ultrasound abdomen complete 01/20/2022 and 01/28/2018. MRI abdomen 07/30/2018. X-ray KUB 07/22/2018. TECHNIQUE: Real-time imaging of the abdominal viscera. FINDINGS: PANCREAS: Normal. ABDOMINAL AORTA: The proximal, mid, and distal segments are normal in caliber. INFERIOR VENA CAVA: Visualized portions are normal. LIVER: Normal. The liver is normal in size. The liver contour is normal. Parenchymal echogenicity is normal. No focal hepatic lesion. There is no intrahepatic biliary duct dilatation seen. GALLBLADDER: Surgically absent. COMMON BILE DUCT: Normal in caliber measuring 0.5 cm in diameter. RIGHT KIDNEY: Small 2 mm stone in the upper and question mid pole. No hydronephrosis or focal parenchymal lesions. The kidney measures 10.1 cm in maximum dimension. LEFT KIDNEY: Small 2 mm stone in the mid and question upper pole. No hydronephrosis or focal parenchymal lesions. The kidney measures 9.6 cm in maximum dimension. SPLEEN: Normal. The spleen measures 10.4 cm in maximum dimension. FREE FLUID: None. US/US abdomen complete IMPRESSION: Small bilateral renal stones.
== END 2023-05-22 07:35 | disposition home or self-care (01) ==
LOC: HO.US 07:34
PROVIDERS: PCP Internal Medicine; Visit Provider Internal Medicine Gastroenterology
DX: R10.10 Upper abdominal pain, unspecified (principal)
CPT/HCPCS: 76700

== ENCOUNTER 2023-06-12 10:00 | Outpatient (REF) | payer OTHER, SELFPAY ==
--- NOTE | ~2023-06-12 | MM_ITS ---
EXAMINATION: MM SCREENING DIGITAL BREAST TOMOSYNTHESIS, BILATERAL CLINICAL INFORMATION: Screening. Asymptomatic. COMPARISON: Mammography: This study is compared with prior exams dating back to 2020. TECHNIQUE: Digital breast tomosynthesis is performed in both the craniocaudal and mediolateral oblique views along with computer-aided detection (CAD). Synthesized 2D images are generated from the tomosynthesis. FINDINGS: The breasts are heterogeneously dense, which may obscure small masses (ACR BI-RADS breast composition Category c). There are no significant masses, abnormal calcifications, or other abnormalities. MM/MM tomosynthesis screening BI IMPRESSION: No mammographic evidence of malignancy. ASSESSMENT: BI-RADS BI-RADS 1 - Negative RECOMMENDATION: Routine annual mammography screening. 1 year F/U This examination should not preclude the clinical evaluation of a suspicious palpable abnormality. This patient's information was entered into a reminder system with a target due date for their next mammogram.
== END 2023-06-12 10:01 | disposition home or self-care (01) ==
LOC: HO.MAMMO 10:00
PROVIDERS: PCP Internal Medicine; Visit Provider Internal Medicine
DX: Z12.31 Encounter for screening mammogram for malignant neoplasm of breast (principal)
CPT/HCPCS: 77063; 77067

== ENCOUNTER → 2023-06-12 10:15 | Outpatient (BNV) | payer OTHER, SELFPAY | PROVIDERS: PCP Internal Medicine; Visit Provider Radiology Diagnostic Radiology | DX: Z12.31 Encounter for screening mammogram for malignant neoplasm of breast (principal) | CPT/HCPCS: 77063; 77067 ==

== ENCOUNTER 2023-08-09 08:18 | Outpatient (AMB) | payer OTHER, SELFPAY ==
--- NOTE | 2023-08-09 08:33 | A.OFFVIS_ITS ---
Vital Signs 08/09/23 08:36 Height 5 ft 3 in Weight 139 lb 8 oz BMI 24.7 BP 112/72 Blood Pressure Location Lt radial Position Sitting Intake Visit Reasons: 4 month follow up Intake Note: control follow up, states that it is going well other than daily spotting. Service Plumber: Service Plumber Present Allergies prochlorperazine [From COMPAZINE] Allergy (Intermediate, Verified 05/15/23 13:14) DYSTONIC, muscle spasms buspirone [From BuSpar] Adverse Reaction (Mild, Verified 07/05/23 16:45) Abdominal Pain Environmental Allergy (Intermediate, Uncoded 04/30/23 08:50) Runny Nose Is last menstrual period known: Yes Last menstrual period: 05/31/23 Post menopausal: No Patient : No HPI Comments Details: Patient is here today for a control pill check. She started Jolessa 3 months ago reports 1st 2 weeks went well and then she starts spotting daily, changing 2 panty liners a day. She denies any missed pills or risks to . She reports overall her headaches and abdominal pain have decreased which has been a symptom of her mast cell activation and she is happy about seeing some improvement. She has a GI follow up in November. She denies any contraindications to control such as: migraines with aura, history of DVT or pulmonary emboli, high blood pressure, liver disease, thrombolic disorders, Lupus, +MEHNAZ, breast cancer, or smoking. [facility] Medical History Bicornuate uterus Mast cell activation syndrome Anemia Postural orthostatic tachycardia syndrome Atrial tachycardia Anxiety Gastroparesis Asthma Surgical History History of Leonardo fundoplication Hx of colonoscopy H/O esophagogastroduodenoscopy Family History Mother Fibromyalgia Diabetes Sister No problems noted. Maternal Aunt Uterine cancer Social History Household Members: None Housing: Condominium Alcohol intake: former Patient Tobacco Use Status: Never used Tobacco e-Cigarette/Vaping Use: Never Used Second Hand Smoke Exposure: No service: No Current occupational status: employed ([employer]) Cognitive needs: No Hearing needs: No Vision needs: Yes Female Reproductive History Menstrual Age of Menarche: 9 Date of last menstrual period: 05/31/23 Review of Systems Const All systems reviewed & are unremarkable except as noted in HPI and below Endo Reports no additional complaints Physical Exam Vital Signs: Last Vital Signs BP 112/72 08/09/23 08:36 BMI result Body Mass Index 24.7 Const General: cooperative, healthy appearing and no acute distress Psych Appearance: well kempt Attitude: cooperative Thought process: Normal thought process present Assessment & Plan Assessment & Plan (1) Oral contraceptive pill surveillance: Code(s): Z30.41 - Encounter for surveillance of contraceptive pills Plan Discuss options for medication, side effects, she is committed to try this medication for another 3 months, advised to call if there is any concerns sooner. control hormone use warnings: go to ER if and loss of vision, blindness, severe headache, chest pain or difficulty breathing, severe abdominal pain, or any pain or swelling in an extremity. Refills sent it. All of her questions and concerns were addressed to the best of my ability and shared decision making. She is agreeable to the plan of care. This note is constructed using voice recognition software. While every effort has been made to ensure accuracy, automobile locator errors may have been included. Medications: Refilled levonorgestrel-ethinyl estrad 0.15 mg-30 mcg (91) (Jolessa) 1 tab PO DAILY 91 ea 1RF Coding Level of Care Code Est Pt Level 3 (58322) Diagnoses Oral contraceptive pill surveillance Z30.41
[2023-08-09 08:36] VITALS: BP 112/72; BMI 24.7
== END 2023-08-09 08:51 | disposition home or self-care (01) ==
LOC: HO.HWS 08:18
PROVIDERS: PCP Internal Medicine; Visit Provider Advanced Practice Midwife
DX: Z30.41 Encounter for surveillance of contraceptive pills (principal)
CPT/HCPCS: 99213

== ENCOUNTER → 2023-08-09 08:18 | Outpatient (BNVA) | payer OTHER, SELFPAY | PROVIDERS: PCP Internal Medicine; Visit Provider Advanced Practice Midwife ==

== ENCOUNTER 2023-08-20 09:16 | Outpatient (REF) | payer OTHER, SELFPAY ==
[2023-08-20 10:26] LABS: MANUAL DIFF FLAG NO
[2023-08-20 11:05] LABS: Basophils Absolute Auto 0.1 X10*3/uL (0.0-0.2); Basophils Percent Auto 1.4 % (0-2); Hematocrit 36.3 % (37.0-47.0); Hemoglobin 11.7 g/dl (12.0-16.0); Imm Gran Abs Auto 0.02 X10*3/uL (0.00-0.03); Imm Gran Pct Auto 0.3 % (0.0-0.4); Lymphocytes Percent Auto 16.7 % (20-40); Mean Corpuscular HGB Conc 32.2 g/dl (31.0-35.0); Mean Corpuscular Hemoglobin 30.2 pg (27.0-33.0); Mean Corpuscular Volume 93.6 fL (80.0-98.0); Mean Platelet Volume 10.7 fL (9.4-12.3); Monocytes Absolute Auto 0.4 X10*3/uL (0.1-1.2); Monocytes Percent Auto 6.9 % (2-11); Neutrophils Absolute Auto 4.7 x10*3/uL (2.0-8.3); Neutrophils Percent Auto 74.7 % (45-73); Platelet Count 330 X10*3/uL (160-400); Red Blood Count 3.88 X10*6/uL (4.20-5.50); Red Cell Distribution Width 13.8 % (11.0-16.0); White Blood Count 6.2 X10*3/uL (4.8-10.8)
[2023-08-20 11:32] LABS: Alanine Aminotransferase 16 U/L (0-31); Albumin Level 4.2 g/dL (3.5-5.0); Alkaline Phosphatase 61 U/L (39-117); Anion Gap 12 (12-20); Aspartate Amino Transferase 15 U/L (5-31); Bilirubin Total 0.2 mg/dL (0.0-1.0); Blood Urea Nitrogen 16 mg/dL (9-16); Calcium 9.2 mg/dL (8.4-10.2); Carbon Dioxide 30 mmol/L (22-29); Chloride 105 mmol/L (96-108); Estimated Glomerular Filt Rate > 60; Glucose Random 86 mg/dL (60-115); Potassium 3.5 mmol/L (3.3-5.1); Sodium 143 mmol/L (135-145); Total Protein 7.1 g/dL (6.5-8.0)
[2023-08-20 11:40] LABS: Erythrocyte Sedimentation Rate 10 MM/HR (0-20)
[2023-08-20 11:53] LABS: Ferritin 17 ng/mL (10-250); Vitamin D 25-OH Total 56.9 ng/mL (>30)
[2023-08-20 12:04] LABS: Folate 13.8 ng/mL (> or = 4.0); Vitamin B12 567 pg/mL (200-900)
[2023-08-23 02:49] LABS: Zinc 74 mcg/dL (60-130)
[2023-08-23 05:04] LABS: Vitamin A 57 mcg/dL (38-98)
[2023-08-23 21:34] LABS: Aldolase 4.3 U/L (<=8.1)
== END 2023-08-20 09:17 | disposition home or self-care (01) ==
LOC: HO.LAB 09:16
PROVIDERS: PCP Internal Medicine; Visit Provider Internal Medicine Gastroenterology
DX: K75.81 Nonalcoholic steatohepatitis (NASH) (principal); R10.10 Upper abdominal pain, unspecified; E50.9 Vitamin A deficiency, unspecified
CPT/HCPCS: 36415; 80053; 82085; 82306; 82550; 82607; 82728; 82746; 83735; 84590; 84630; 85025; 85652

== ENCOUNTER 2023-08-20 09:16 | Outpatient (AMB) | payer OTHER, SELFPAY ==
--- NOTE | 2023-08-20 09:22 | MHC.OFFVIS ---
Vital Signs 08/20/23 09:24 Height 5 ft 3 in Weight 137 lb 2.04 oz BMI 24.3 BP 132/70 Blood Pressure Location Lt brachial Position Sitting Pulse 100 Intake Visit Reasons: 5 month follow up Intake Note: Natividad presents in the office as a 5 month follow up. CC: She states that she is not having any concerns at this time. 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 VCE: was normal but didn;t reach cecum MRe- constipation, no active inflammation RAST- pos for allergy to egg white and hazelnut tryptase x 2 elevated at 15, plasma histamine 3.4 fecal elastase--normal fecal fat neg calprotectin borderline she felt welchol was giving her epigastric pain and cut down levsin was helping her most of the time she was referred to hematology due to sx and and high tryptase, had BM bx done, no evidence of systemic mastocytosis t this time seeing computer technical support specialist , and ketotifen may be an additional agent used for sx also discussion about checking for early Systemic mastocysosis with CKIT mutation analysis She had EGD 06/2020 with dilation due to dysphagia she was changed to dexilant--------stopped it due to abdominal pain she got the allergy shots for dander and mold, and still has several more treatments to go with her tag stringer Repeat EGD 05/2021--balloon dilation, bx for mast cells with high numbers in duodenum, vocal cord erythema EGD with dilation and clancy: 04/25/22 mild gastritis mild laryngitis CLANCY: neg demeester, neg SAP--on PPI US was normal EGD with dilation 02/03--some bile refluxate noted US 05/2023- small renal stones nml LFT INTERIM: she tried gabapentin 100 mg and feels it helped no associated nausea or vomiting swallowing has been good she was doing pretty well overall, but last few days seems to have a flare with abdo pain and diarrhea no sick contacts feels the heat might be triggering the sx as well, she has also been on OCP and feels that has helped she has more work stress as well she notes fatigue in muscles when walking up hills, no cramps or pain per se EXAM: GENERAL: The patient is well developed and nontoxic. VITAL SIGNS:see workflow HEENT: Nonicteric sclerae, PERRLA, EOMI. Oropharynx clear. Moist mucous membranes. Conjunctivae appear well perfused. No thyroid mass. CHEST: Chest wall is nontender. HEART: Regular rate and rhythm without murmurs. LUNGS: Clear to auscultation bilaterally. ABDOMEN: Soft, positive bowel sounds, nontender, no organomegaly.no flank tenderness SKIN: No rash, no excessive bruising, petechiae, or purpura. NEUROLOGIC: Cranial nerves II-XII intact without motor/sensory deficit. MS: nml Assessment & Plan 1 Elevated serum tryptase--being monitored 2 Mast cell disorder: overall control is good 3. 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 Epigastric pain, better with levsin ?related to MIRYAM or spasm, IBS Plan: 1/ increase fluid intake at least 2-3 L daily, avoid humidity 2/ chekc cpk and aldolase 3/ increase gabapentin 100 mg bid PFSH Medical History Bicornuate uterus Mast cell activation syndrome Anemia Postural orthostatic tachycardia syndrome Atrial tachycardia Anxiety Gastroparesis Asthma Surgical History History of Leonardo fundoplication Hx of colonoscopy H/O esophagogastroduodenoscopy Family History Mother Fibromyalgia Diabetes Sister No problems noted. Maternal Aunt Uterine cancer Social History Household Members: None Housing: Condominium Alcohol intake: former Patient Tobacco Use Status: Never used Tobacco e-Cigarette/Vaping Use: Never Used Second Hand Smoke Exposure: No service: No Current occupational status: employed ([employer]) Cognitive needs: No Hearing needs: No Vision needs: Yes Female Reproductive History Menstrual Age of Menarche: 9 Physical Exam Vital Signs: Last Vital Signs Pulse 100 08/20/23 09:24 BP 132/70 08/20/23 09:24 BMI result Body Mass Index 24.3 Assessment & Plan Assessment & Plan (1) Vitamin A deficiency: Code(s): E50.9 - Vitamin A deficiency, unspecified Category: Medical Plan: see above (2) Upper abdominal pain: Code(s): R10.10 - Upper abdominal pain, unspecified Category: Medical Plan: see above Orders: Orders Complete Blood Count Auto Diff Today E50.9 - Vitamin A deficiency, unspecified, R10.10 - Upper abdominal pain, unspecified Aldolase Today E50.9 - Vitamin A deficiency, unspecified, R10.10 - Upper abdominal pain, unspecified Erythrocyte Sedimentation Rate Today E50.9 - Vitamin A deficiency, unspecified, R10.10 - Upper abdominal pain, unspecified Vitamin B12 and Folate Today E50.9 - Vitamin A deficiency, unspecified, R10.10 - Upper abdominal pain, unspecified Magnesium Today E50.9 - Vitamin A deficiency, unspecified, R10.10 - Upper abdominal pain, unspecified Zinc Today E50.9 - Vitamin A deficiency, unspecified, R10.10 - Upper abdominal pain, unspecified Vitamin A Today E50.9 - Vitamin A deficiency, unspecified Comprehensive Met. Panel Today E50.9 - Vitamin A deficiency, unspecified, K75.81 - Nonalcoholic steatohepatitis ([place]), R10.10 - Upper abdominal pain, unspecified Creatine Kinase Total Today E50.9 - Vitamin A deficiency, unspecified, R10.10 - Upper abdominal pain, unspecified Ferritin Today E50.9 - Vitamin A deficiency, unspecified, R10.10 - Upper abdominal pain, unspecified Vitamin D 25-OH Total Today E50.9 - Vitamin A deficiency, unspecified, R10.10 - Upper abdominal pain, unspecified Medications: Refilled gabapentin 100 mg PO BEDTIME 30 caps 1RF Coding Level of Care Code Est Pt Level 4 (81403) Diagnoses Vitamin A deficiency E50.9 Upper abdominal pain R10.10
[2023-08-20 09:24] VITALS: BP 132/70; PULSE 100; BMI 24.3
== END 2023-08-20 10:08 | disposition home or self-care (01) ==
PROVIDERS: PCP Internal Medicine; Visit Provider Internal Medicine Gastroenterology
DX: E50.9 Vitamin A deficiency, unspecified (principal); R10.10 Upper abdominal pain, unspecified
CPT/HCPCS: 99214

== ENCOUNTER 2023-10-22 10:20 | Outpatient (AMB) | payer OTHER, SELFPAY ==
--- NOTE | 2023-10-22 10:21 | A.OFFVIS_ITS ---
Vital Signs 10/22/23 10:22 Height 5 ft 3 in Weight 140 lb 3.424 oz BMI 24.8 BP 132/76 Blood Pressure Location Rt brachial Position Sitting Pulse 94 Pulse Source Pulse Oximeter Pulse Oximetry (%) 99 Oxygen Delivery Method Room Air Intake Visit Reasons: 8 month follow up Intake Note: Natividad presents in office today for a scheduled 8 mos FUV. CC; Pt reports that they have remained stable since their last visit. Pt does report still experiencing the chronic, intermittent abdominal pain that they reported at their last visit. Pt does report needing a refill of gabapentin if possible. 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 VCE: was normal but didn;t reach cecum MRe- constipation, no active inflammation RAST- pos for allergy to egg white and hazelnut tryptase x 2 elevated at 15, plasma histamine 3.4 fecal elastase--normal fecal fat neg calprotectin borderline she felt welchol was giving her epigastric pain and cut down levsin was helping her most of the time she was referred to hematology due to sx and and high tryptase, had BM bx done, no evidence of systemic mastocytosis t this time seeing biomedical equipment support specialist , and ketotifen may be an additional agent used for sx also discussion about checking for early Systemic mastocysosis with CKIT mut ation analysis She had EGD 06/2020 with dilation due to dysphagia she was changed to dexilant--------stopped it due to abdominal pain she got the allergy shots for dander and mold, and still has several more treatments to go with her peer support specialist Repeat EGD 05/2021--balloon dilation, bx for mast cells with high numbers in duodenum, vocal cord erythema EGD with dilation and clancy: 04/25/22 mild gastritis mild laryngitis CLANCY: neg demeester, neg SAP--on PPI US was normal EGD with dilation 02/03--some bile refluxate noted US 05/2023- small renal stones nml LFT INTERIM: she remains on cecil 100 mg daily, seems to help with her abdominal pain but feels she might benefit from a higher dose swallowing has been good stress is increased with start of seeing peer support specialist tomorrow she has colonoscopy coming up soon EXAM: GENERAL: The patient is well developed and nontoxic. VITAL SIGNS:see workflow HEENT: Nonicteric sclerae, PERRLA, EOMI. Oropharynx clear. Moist mucous membran es. Conjunctivae appear well perfused. No thyroid mass. CHEST: Chest wall is nontender. HEART: Regular rate and rhythm without murmurs. LUNGS: Clear to auscultation bilaterally. ABDOMEN: Soft, positive bowel sounds, nontender, no organomegaly.no flank tenderness SKIN: No rash, no excessive bruising, petechiae, or purpura. NEUROLOGIC: Cranial nerves II-XII intact without motor/sensory deficit. MS: nml Assessment & Plan 1 Elevated serum tryptase--being monitored 2 Mast cell disorder: overall control is good 3. dysphagia s/p dilation with good effect -not an issue 4. Epigastric pain, better with levsin ?related to MIRYAM or spasm, IBS Plan: 1/ increase gabapentin 200 mg once daily 2/ await colonoscopy later this month [facility] Medical History Bicornuate uterus Mast cell activation syndrome Anemia Postural orthostatic tachycardia syndrome Atrial tachycardia Anxiety Gastroparesis Asthma Surgical History History of Leonardo fundoplication Hx of colonoscopy H/O esophagogastroduodenoscopy Family History Mother Fibromyalgia Diabetes Sister No problems noted. Maternal Aunt Uterine cancer Social History Household Members: None Housing: Condominium Alcohol intake: former Patient Tobacco Use Status: Never used Tobacco e-Cigarette/Vaping Use: Never Used Second Hand Smoke Exposure: No service: No Current occupational status: employed ([employer]) Cognitive needs: No Hearing needs: No Vision needs: Yes Female Reproductive History Menstrual Age of Menarche: 9 Physical Exam Vital Signs: Last Vital Signs Pulse 94 10/22/23 10:22 BP 132/76 10/22/23 10:22 Pulse Ox 99 10/22/23 10:22 Oxygen Delivery Method Room Air 10/22/23 10:22 BMI result Body Mass Index 24.8 Assessment & Plan Assessment & Plan (1) Upper abdominal pain: Code(s): R10.10 - Upper abdominal pain, unspecified Category: Medical Plan: see above Medications: Changed From gabapentin 100 mg PO BEDTIME 30 caps 1RF To gabapentin 200 mg (2 x 100 mg) PO BEDTIME 120 caps 1RF Coding Level of Care Code Est Pt Level 3 (47146) Diagnoses Upper abdominal pain R10.10
[2023-10-22 10:22] VITALS: BP 132/76; PULSE 94; O2SAT 99; BMI 24.8
== END 2023-10-22 10:47 | disposition home or self-care (01) ==
PROVIDERS: PCP Internal Medicine; Visit Provider Internal Medicine Gastroenterology
DX: R10.10 Upper abdominal pain, unspecified (principal)
CPT/HCPCS: 99213

== ENCOUNTER → 2023-10-22 10:20 | Outpatient (BNVA) | payer OTHER, SELFPAY | PROVIDERS: PCP Internal Medicine; Visit Provider Internal Medicine Gastroenterology ==

== ENCOUNTER 2023-11-06 09:31 | Day surgery (SDC) | payer OTHER, SELFPAY ==
[2023-11-06 10:16] LABS: UPreg QC Valid YES
[2023-11-06 10:17] LABS: Urine Pregnancy NEGATIVE (NEGATIVE)
[2023-11-06 10:20] VITALS: BP 141/82; PULSE 106; RESP 18; TEMP 36.7; O2SAT 99; BMI 25.0
[2023-11-06] MEDS: Famotidine/PF 20 MG/2 ML VIAL IVPUSH (10:29)
[2023-11-06] MEDS: Lactated Ringers 1,000 ML 100 ML IVCONT (10:29)
[2023-11-06] MEDS: diphenhydrAMINE HCL 50 MG/ML VIAL 25 MG IVPUSH (10:30)
--- NOTE | 2023-11-06 10:30 | HO.ANESPROP2 ---
Documented by User: Natividad Pitts NP 11/05/23 09:42 HPI - Anesthesia Eval Consult details Narrative: 42yo F for Colonoscopy s/p Upper Endoscopy with Balloon Dilitation 01/2023 with TIVA Mast Cell Activ Syndrome. Pepcid and Benadryl preop POTS PMFSH Active Problems Active Problems: All Active Problems Regurgitant esophagitis (Acute) Upper abdominal pain (Acute) Encounter for annual routine gynecological examination (Acute) Anxiety, generalized (Acute) Vitamin A deficiency (Acute) Hypoglycemia (Acute) Encounter for general adult medical examination with abnormal findings (Acute) Palpitations (Acute) Environmental allergies (Acute) Headache syndrome (Acute) Breast screening (Acute) Mast cell disorder (Acute) Elevated serum tryptase (Acute) Elevated serum tryptase (Acute) Anemia (Acute) Postural orthostatic tachycardia syndrome (Acute) Anxiety (Acute) Past Medical History Medical History Bicornuate uterus Mast cell activation syndrome Anemia Postural orthostatic tachycardia syndrome Atrial tachycardia Anxiety Gastroparesis Asthma Family History Family History Mother Fibromyalgia Diabetes Sister No problems noted. Maternal Aunt Uterine cancer Family history of problems with anesthesia: No Surgical History Surgical History History of Leonardo fundoplication Hx of colonoscopy H/O esophagogastroduodenoscopy History of Problems with Anesthesia: No Social History Social History Household Members: None Housing: Condominium Alcohol intake: former Patient Tobacco Use Status: Never used Tobacco e-Cigarette/Vaping Use: Never Used Second Hand Smoke Exposure: No Have you been hit, kicked, punched, or otherwise hurt by someone within the past year? If so, by whom?: No Are you DNR?: No Advance Directives: No Advance Directives Information Provided: Yes Recently lost weight without trying: No Nutrition Risks: No Nutritional Risk Patient : No service: No Current occupational status: employed ([employer]) Cognitive needs: No Hearing needs: No Vision needs: Yes Meds Allergies Allergy/AdvReac Type Severity Reaction Status Date / Time prochlorperazine Allergy Intermediate DYSTONIC, Verified 10/22/23 10:22 [From COMPAZINE] muscle spasms buspirone [From BuSpar] AdvReac Mild Abdominal Verified 10/22/23 10:22 Pain Environmental Allergy Intermediate Runny Nose Uncoded 08/20/23 09:25 Home Medications ?Medication ?Instructions ?Recorded ?Confirmed ?Last Taken ?Type loratadine 10 mg tablet 1 tab PO DAILY 12/01/19 05/15/23 Unknown History sumatriptan succinate 50 mg tablet See Rx Instructions PO .COMPLEX 03/05/20 05/15/23 Unknown History (Imitrex) epinephrine 0.3 mg/0.3 mL 1 ml IM NEEDED anaphylaxis 07/06/20 05/15/23 Unknown History injection, auto-injector amitriptyline 10 mg tablet 30 mg PO BEDTIME 03/08/21 05/15/23 Unknown History budesonide 3 mg 9 mg PO DAILY 01/29/23 05/15/23 Unknown History capsule,delayed,extended release omalizumab 150 mg/mL subcutaneous mg subcut 03/09/23 05/15/23 Unknown History syringe (Xolair) famotidine 40 mg tablet 40 mg PO BID 08/20/23 Unknown History Assessment and Plan Assessment Anesthesia Assessment: Chart Reviewed Final Anesthetic Review Family History of Problems with Anesthesia: No History of Problems with Anesthesia: No Documented by User: Linette Aguilera DO 11/06/23 10:33 [facility] Past Medical History Medical History Bicornuate uterus Mast cell activation syndrome Anemia Postural orthostatic tachycardia syndrome Atrial tachycardia Anxiety Gastroparesis Asthma Family History Family History Mother Fibromyalgia Diabetes Sister No problems noted. Maternal Aunt Uterine cancer Family history of problems with anesthesia: No Surgical History Surgical History History of Leonardo fundoplication Hx of colonoscopy H/O esophagogastroduodenoscopy History of Problems with Anesthesia: No Social History Social History Household Members: None Housing: Condominium Alcohol intake: former Patient Tobacco Use Status: Never used Tobacco e-Cigarette/Vaping Use: Never Used Second Hand Smoke Exposure: No Have you been hit, kicked, punched, or otherwise hurt by someone within the past year? If so, by whom?: No Are you DNR?: No Advance Directives: No Advance Directives Information Provided: Yes Recently lost weight without trying: No Nutrition Risks: No Nutritional Risk Patient : No service: No Current occupational status: employed ([employer]) Cognitive needs: No Hearing needs: No Vision needs: Yes Meds Allergies Allergy/AdvReac Type Severity Reaction Status Date / Time prochlorperazine Allergy Intermediate DYSTONIC, Verified 10/22/23 10:22 [From COMPAZINE] muscle spasms buspirone [From BuSpar] AdvReac Mild Abdominal Verified 10/22/23 10:22 Pain Environmental Allergy Intermediate Runny Nose Uncoded 08/20/23 09:25 Home Medications ?Medication ?Instructions ?Recorded ?Confirmed ?Last Taken ?Type loratadine 10 mg tablet 1 tab PO DAILY 12/01/19 05/15/23 Unknown History sumatriptan succinate 50 mg tablet See Rx Instructions PO .COMPLEX 03/05/20 05/15/23 Unknown History (Imitrex) epinephrine 0.3 mg/0.3 mL 1 ml IM NEEDED anaphylaxis 07/06/20 05/15/23 Unknown History injection, auto-injector amitriptyline 10 mg tablet 30 mg PO BEDTIME 03/08/21 05/15/23 Unknown History budesonide 3 mg 9 mg PO DAILY 01/29/23 05/15/23 Unknown History capsule,delayed,extended release omalizumab 150 mg/mL subcutaneous mg subcut 03/09/23 05/15/23 Unknown History syringe (Xolair) famotidine 40 mg tablet 40 mg PO BID 08/20/23 Unknown History Exam Exam Date and Time: 11/06/23 1030 Height,Weight and Vital Signs: Height 5 ft 3 in Weight 64.138 kg Vital Signs Temperature 98.1 F 11/06/23 10:20 Pulse Rate 106 H 11/06/23 10:20 Respiratory Rate 18 11/06/23 10:20 Blood Pressure 141/82 H 11/06/23 10:20 Pulse Oximetry 99 11/06/23 10:20 Oxygen Delivery Method Room Air 11/06/23 10:20 Temperature 98.1 F 11/06/23 10:20 Pulse Rate 106 H 11/06/23 10:20 Respiratory Rate 18 11/06/23 10:20 Blood Pressure 141/82 H 11/06/23 10:20 Pulse Oximetry 99 11/06/23 10:20 Oxygen Delivery Method Room Air 11/06/23 10:20 Airway Mallampati Class: II TM Dist: >3cm Neck ROM: Full Loose/Missing/Broken Teeth: No (patient denies any loose or broken teeth) Heart: S1S2 Lungs: CTAB Assessment and Plan Assessment Anesthesia Assessment: Anesthesia Plan Discussed and Chart Reviewed Final Anesthetic Review Family History of Problems with Anesthesia: No History of Problems with Anesthesia: No NPO: Yes ASA Class: II Final Preanesthetic Review: No Changes in Pt Med Stat, Meds/Allgs Chart Reviewed, Consent Obtained/Reviewed and Anes Risks/Benef Reviewed Patient Risk: Low Procedure Risk: Low Anesthetic Plan Anesthetic Plan: MAC: and Agree w/ Assess. and Plan Disposition: Standard PACU
--- NOTE | 2023-11-06 10:48 | MHC.SHP ---
Pre-Procedural Eval Section A - 24 Hr Update-Section A only Date of Service: 11/06/23 Section B - Complete if H&P > 30 days Chief Complaint: mast cell disorder Relevant Family History (Specify if Yes): No Relevant Social History: None Present Medications: see Short Stay Collaborative assessment Medical History: Significant History (Bicornuate uterus Mast cell activation syndrome Anemia Postural orthostatic tachycardia syndrome Atrial tachycardia Anxiety Gastroparesis Asthma) History of Previous Operations: Relevant previous surgery/procedure and date(s) (History of Leonardo fundoplication Hx of colonoscopy H/O esophagogastroduodenoscopy) Allergies: Allergies Allergy/AdvReac Type Severity Reaction Status Date / Time prochlorperazine Allergy Intermediate DYSTONIC, Verified 10/22/23 10:22 [From COMPAZINE] muscle spasms buspirone [From BuSpar] AdvReac Mild Abdominal Verified 10/22/23 10:22 Pain Environmental Allergy Intermediate Runny Nose Uncoded 08/20/23 09:25 Review of Systems Sugical H&P ROS: Negative: Constitution, Cardiovascular, Respiratory, Neurological, Psychiatric, Hem-Onc, Allergic/Immunologic, Gastrointestinal, Genitourinary, Musculoskeletal, Integumentary, Endocrine and Eyes/Ears/Nose/Throat Exam Surgical H&P Exam: Normal: HEENT, Normal: Heart, Normal: Lungs, Normal: Extremities, Normal: Abdomen, Normal: Skin and Normal: Neurological Plan Diagnosis/Plan: Unchanged I have reviewed the history and physical and performed a pertinent physical examination on my patient. No changes have occurred unless specified. Time Spent With Patient Time: Total time managing care of this patient today ____ minutes.
--- NOTE | 2023-11-06 11:28 | HO.OPN-COLON ---
Colonoscopy Operative Note Operative Note Date of Service: 11/06/23 Narrative: Operative Information Procedure Description: Colonoscopy Indication: mast cell disorder Anesthesia: MAC COLONOSCOPY Instrument: Olympus variable stiffness pediatric scope 190L Colonoscopy Monitoring: Vital signs and clinical assessment, continuous EKG monitoring, Pulse oximetry, Carbon Dioxide monitoring and blood pressure monitoring were done throughout the procedure. Colon withdrawal time was 11 minutes. Procedure: The patient was placed in the left lateral decubitis position and pre-procedure medications were administered. After a digital rectal examination of the ano-rectum, the video colonoscope was inserted into the rectum and advanced through the colon to the cecum/TI. The colonoscope was slowly withdrawn in a retrograde panoramic fashion and the colon mucosa was carefully examined including a retroflexed view of the rectum. Findings and interventions are described below. Procedure Difficulty: easy Findings: Terminal Ileum-normal, bx taken Random colon bx taken from right and left colon in separate jars Cecum:normal Ascending Colon: normal Transverse Colon -normal Descending Colon:normal Sigmoid Colon: normal Rectum: Retroflexion with small internal hemorrhoids seen, grade I Anorectum - normal Intervention: cold bx Colon preparation: Kemmerer Bowel Preparation Scale Right colon; 2 Transverse colon: 2 Left colon; 2 (0 = Unprepared colon segment with mucosa not seen due to solid stool that cannot be cleared. 1 = Portion of mucosa of the colon segment seen, but other areas of the colon segment not well seen due to staining, residual stool and/or opaque liquid. 2 = Minor amount of residual staining, small fragments of stool and/or opaque liquid, but mucosa of colon segment seen well. 3 = Entire mucosa of colon segment seen well with no residual staining, small fragments of stool or opaque liquid) Impression and Post Procedure Diagnosis: diverticulosis colon polyps internal hemorrhoids Plan: High fiber diet leaflet Avoid straining at stool, epsom salts and sitz bath, anusol supps or cream Repeat Colonoscopy in 10 years or earlier if clinically indicated Above findings were reviewed with the patient and relevant handouts were provided if indicated.
[2023-11-06 11:32] VITALS: BP 112/58; PULSE 83; RESP 16; TEMP 36.6; O2SAT 99
[2023-11-06 11:45] VITALS: BP 121/75; PULSE 99; RESP 16; TEMP 36.6; O2SAT 99
== END 2023-11-06 12:12 | disposition home or self-care (01) ==
PROVIDERS: Nurse Practitioner; PCP Internal Medicine; Visit Provider Internal Medicine Gastroenterology
PROC: 0DJD8ZZ Inspection of Lower Intestinal Tract, Via Natural or Artificial Opening Endoscopic (ICD-10-PCS; CPT 45378; principal; 2023-11-06 12:30)
DX: D89.40 Mast cell activation, unspecified (principal); R10.10 Upper abdominal pain, unspecified; K57.30 Diverticulosis of large intestine without perforation or abscess without bleeding; K64.0 First degree hemorrhoids; K31.84 Gastroparesis; E50.9 Vitamin A deficiency, unspecified; D64.9 Anemia, unspecified; G90.A Postural orthostatic tachycardia syndrome [POTS]; J45.909 Unspecified asthma, uncomplicated; Z88.8 Allergy status to other drugs, medicaments and biological substances; Z79.899 Other long term (current) drug therapy; Z98.890 Other specified postprocedural states
CPT/HCPCS: 45380; 81025; 88305; 88342; J1200; J2371; J2704

== ENCOUNTER → 2023-11-06 09:31 | Outpatient (BNV) | payer OTHER, SELFPAY | PROVIDERS: PCP Internal Medicine; Visit Provider Internal Medicine Gastroenterology | DX: D89.49 Other mast cell activation disorder (principal); K64.0 First degree hemorrhoids | CPT/HCPCS: 45380 ==

== ENCOUNTER 2023-11-08 14:09 | Outpatient (AMB) | payer OTHER, SELFPAY ==
--- NOTE | 2023-11-08 14:13 | MHC.OFFVIS ---
Vital Signs 11/08/23 14:17 BP 112/76 Intake Visit Reasons: 3 month pill check Departmental Shipping Clerk: Departmental Shipping Clerk Present Allergies prochlorperazine [From COMPAZINE] Allergy (Intermediate, Verified 11/08/23 14:15) DYSTONIC, muscle spasms buspirone [From BuSpar] Adverse Reaction (Mild, Verified 11/08/23 14:15) Abdominal Pain Environmental Allergy (Intermediate, Uncoded 08/20/23 09:25) Runny Nose Is last menstrual period known: Yes HPI Comments Details: Patient is here today for a follow up pill check, currently taking Jolessa and reports breakthrough bleeding onset at week 6. Overall she reports the mast cell activation has been improved during her active pill days, but unfortunately has been experiencing daily breakthrough bleeding. She denies any contraindications to control such as: migraines with aura, history of DVT or pulmonary emboli, high blood pressure, liver disease, thrombolic disorders, Lupus, +MEHNAZ, breast cancer, or smoking. [facility] Medical History Bicornuate uterus Mast cell activation syndrome Anemia Postural orthostatic tachycardia syndrome Atrial tachycardia Anxiety Gastroparesis Asthma Surgical History History of Leonardo fundoplication Hx of colonoscopy H/O esophagogastroduodenoscopy Family History Mother Fibromyalgia Diabetes Sister No problems noted. Maternal Aunt Uterine cancer Social History Household Members: None Housing: Condominium Alcohol intake: former Patient Tobacco Use Status: Never used Tobacco e-Cigarette/Vaping Use: Never Used Second Hand Smoke Exposure: No service: No Current occupational status: employed ([employer]) Cognitive needs: No Hearing needs: No Vision needs: Yes Female Reproductive History Menstrual Age of Menarche: 9 Review of Systems Const All systems reviewed & are unremarkable except as noted in HPI and below Endo Reports no additional complaints Physical Exam Vital Signs: Last Vital Signs BP 112/76 11/08/23 14:17 Const General: cooperative, healthy appearing and no acute distress Psych Appearance: well kempt Attitude: cooperative Thought process: Normal thought process present Assessment & Plan Assessment & Plan (1) Surveillance for control, oral contraceptives: Code(s): Z30.41 - Encounter for surveillance of contraceptive pills Plan She is interested in staying on it continues dose for the benefits of improved mast cell activation symptoms. Reviewed options at this time to consider switching the pill to a different brand and attempt continuous dosing, but if breakthrough bleeding occurs we will stop for 5 days and reset. She denies any risk to . Reviewed side effects, and potential changes that it could occur for side effects with new pill use. Refills sent to pharmacy. Plan three-month filled check or call sooner if any concerns. control hormone use warnings: go to ER if and loss of vision, blindness, severe headache, chest pain or difficulty breathing, severe abdominal pain, or any pain or swelling in an extremity. All of her questions and concerns were addressed to the best of my ability and shared decision making. She is agreeable to the plan of care. This note is constructed using voice recognition software. While every effort has been made to ensure accuracy, money position officer errors may have been included. Medications: New desogestrel-ethinyl estradiol 0.15-0.03 mg (Apri) continuous dosing, skip placebo week 1 tab PO DAILY 112 tabs 1RF Discontinued levonorgestrel-ethinyl estrad 0.15 mg-30 mcg (91) (Toñito) Discontinued Reason: No Longer Medically Relevant 1 tab PO DAILY 91 ea 1RF Coding Level of Care Code Est Pt Level 3 (46753) Diagnoses Surveillance for control, oral contraceptives Z30.41
[2023-11-08 14:17] VITALS: BP 112/76
== END 2023-11-08 14:55 | disposition home or self-care (01) ==
PROVIDERS: PCP Internal Medicine; Visit Provider Advanced Practice Midwife
DX: Z30.41 Encounter for surveillance of contraceptive pills (principal)
CPT/HCPCS: 99213

== ENCOUNTER → 2023-11-08 14:09 | Outpatient (BNVA) | payer OTHER, SELFPAY | PROVIDERS: PCP Internal Medicine; Visit Provider Advanced Practice Midwife ==

== ENCOUNTER 2023-12-04 15:14 | Outpatient (AMB) | payer OTHER, SELFPAY ==
[2023-12-04 15:19] VITALS: BP 126/74; PULSE 93; O2SAT 99; BMI 25.0
--- NOTE | 2023-12-04 15:19 | A.OFFPC_ITS ---
Vital Signs 12/04/23 15:19 Height 5 ft 3 in Weight 141 lb 4 oz BMI 25.0 BP 126/74 Blood Pressure Location Rt brachial Position Sitting Pulse 93 Pulse Source Pulse Oximeter Pulse Oximetry (%) 99 Oxygen Delivery Method Room Air Intake Visit Reasons: Annual PE Allergies prochlorperazine [From COMPAZINE] Allergy (Intermediate, Verified 12/04/23 15:22) DYSTONIC, muscle spasms buspirone [From BuSpar] Adverse Reaction (Mild, Verified 12/04/23 15:22) Abdominal Pain Environmental Allergy (Intermediate, Uncoded 08/20/23 09:25) Runny Nose Medication List - Last Reconciled 12/04/23 by Keyon Fernandez MD amitriptyline 30 mg PO BEDTIME cromolyn 200 mg (10 mL) PO QID 90 days desogestrel-ethinyl estradiol 0.15-0.03 mg (Apri) 1 tab PO DAILY epinephrine 1 mL IM NEEDED famotidine 40 mg PO BID fludrocortisone 0.2 mg (2 x 0.1 mg) PO DAILY gabapentin 200 mg (2 x 100 mg) PO BEDTIME hyoscyamine sulfate 0.125 mg sublingual BID-TID PRN ivabradine (Corlanor) 5 mg PO BID dytxcu-jpplzshy-surcofo 24,000-76,000 -120,000 unit (Creon) 2 caps PO TID 90 days loratadine 1 tab PO DAILY montelukast 10 mg PO BEDTIME omalizumab (Xolair) mg subcut pantoprazole 40 mg PO DAILY sertraline 100 mg PO DAILY sumatriptan succinate (Imitrex) take 1 tab at onset of headache; if no relief may repeat 1 tab after at least 2 hrs; max = 4 tabs/24 hr PO Tobacco use date assessed: 12/04/23 Dental Screening Dental Screen Date: 12/04/23 Did you have a dental visit in the last 12 months?: Yes Did you have a dental problem in the last 6 months where you did not have access to dental care?: No Was dental information given to patient?: Patient has dentist HPI Annual PE HPI Details Patient is a 42-year-old female came in today for physical examination Mammogram is up-to-date OBGYN visit is up-to-date Last set of lab done August of this year reviewed Did some exercise over the weekend had pain right side of neck Which is getting better Neck is completely supple today without any pain Had colonoscopy through Dr. Werner recently Next colonoscopy will be in 10 years Only medication from this office is sertraline for anxiety Patient is tolerating medication and it is helping her. [facility] Medical History Bicornuate uterus Mast cell activation syndrome Anemia Postural orthostatic tachycardia syndrome Atrial tachycardia Anxiety Gastroparesis Asthma Surgical History History of Leonardo fundoplication Hx of colonoscopy H/O esophagogastroduodenoscopy Family History Mother Fibromyalgia Diabetes Sister No problems noted. Maternal Aunt Uterine cancer Social History Household Members: None Housing: Condominium Alcohol intake: former Patient Tobacco Use Status: Never used Tobacco e-Cigarette/Vaping Use: Never Used Second Hand Smoke Exposure: No service: No Current occupational status: employed ([employer]) Cognitive needs: No Hearing needs: No Vision needs: Yes Female Reproductive History Menstrual Age of Menarche: 9 Questionnaire PHQ-9 Over the last 2 weeks, how often have you been bothered by any of the following problems? 1. Little interest or pleasure in doing things: several days 2. Feeling down, depressed, or hopeless: several days 3. Trouble falling or staying asleep, or sleeping too much: several days 4. Feeling tired or having little energy: several days 5. Poor appetite or overeating: not at all 6. Feeling bad about yourself - or that you are a failure or have let yourself or your family down: not at all 7. Trouble concentrating on things, such as reading the newspaper or watching television: several days 8. Moving or speaking so slowly that other people could have noticed. Or the opposite - being so fidgety or restless that you have been moving around a lot more than usual: not at all 9. Thoughts that you would be better off or of hurting yourself in some way: not at all Total score: 5 Depression Screening Interpretation: Negative Depression Screening Done: Yes 28590 - PHQ-9 Billing: Yes Source: Developed by Jaqueline Child Kurt Kroenke and colleagues, with an educational delores from [employer]. Thrive Questionnaire Date Thrive assessed: 12/04/23 I am a: Patient What is your living situation today?: I have a steady place to live Within the past 12 months, did the food you bought not last and you didn't have the money to get more?: Never true Within the past 12 months, did you worry whether your food would run out before you got money to buy more?: Never true Do you have trouble paying for medicines?: No Do you have trouble getting transportation to medical appointments?: No Do you have trouble paying your heating and electricity bill?: No Do you have trouble taking care of your child, family member or friend?: No Do you have trouble with day-to-day activities such as bathing, preparing meals, shopping, managing finances, etc.?: No Are you currently unemployed and looking for a job?: No Are you interested in more education?: No Please select the resources that you would like help with: None Currently or been in a relationship where the following occur: No concerns reported THRIVE Score: 0 AUDIT C Alcohol Use Questionnaire (AUDIT-C) 1. How often do you have a drink containing alcohol?: Never 3. How often do you have six or more drinks on one occasion?: Never Total Score: 0 Score Reviewed/Action Taken: Yes ANU-7 AMB Questionnaire ANU-7 Date ANU - 7 assessed: 12/04/23 Feeling nervous, anxious, or on edge: 1 = Several days Not being able to stop or control worryin = Several days Worrying too much about different things: 1 = Several days Trouble relaxin = Several days Being so restless that it is hard to sit still: 0 = Not at all Becoming easily annoyed or irritable: 1 = Several days Feeling afraid as if something awful might happen: 0 = Not at all Total ANU-7 score (0-4 normal; 5-9 mild; 10-14 moderate; 15-21 severe): 5 Source: Developed by Jaqueline Child Kurt Kroenke and colleagues, with an educational delores from [employer]. ANU-7 Assessment Billing ANU-7 Assessment Tool: ANU-7 Assessment 96153 Review of Systems Const Denies chills, Denies fever(s) and Denies headache(s) Eyes Denies blurry vision ENT Denies headache(s), Denies nasal discharge, Denies nasal obstruction, Denies odynophagia and Denies sinus pain Card Denies chest pain at rest and Denies chest pain with activity Resp Denies cough and Denies hemoptysis GI Denies diarrhea, Denies odynophagia, Denies vomiting and Denies hematemesis Reports as per HPI Musc Denies abnormal gait Skin/Breast Reports as per HPI Neuro Denies Neuro-related abnormal movements, Denies Abnormal speech present, Denies abnormal gait, Denies headache(s) and Denies Sensory deficit (Neuro) Psych Denies mood swings and Denies paranoia Endo Reports as per HPI Roland/Lymph Reports as per HPI Aller/Immun Reports as per HPI Physical exam (Primary Care) Vital Signs: Last Vital Signs Pulse 93 12/04/23 15:19 BP 126/74 12/04/23 15:19 Pulse Ox 99 12/04/23 15:19 Oxygen Delivery Method Room Air 12/04/23 15:19 BMI result Body Mass Index 25.0 Tobacco/Smoking Status: Tobacco use Status Tobacco use date assessed 12/04/23 12/04/23 15:23 Patient Tobacco Use Status Never used Tobacco 12/04/23 15:23 e-Cigarette/Vaping Use Never Used 12/04/23 15:23 PHQ-9: PHQ-9 Score PHQ-9: Total score 5 12/04/23 15:23 Depression Screening Interpretation: Negative Thrive Assessment: Date of Thrive Assessment Date Thrive assessed 12/04/23 12/04/23 15:23 Currently or been in a relationship where the following occur: No concerns reported Const General: cooperative, comfortable and no acute distress Orientation/consciousness: patient oriented x3 HENMT Head: Yes normocephalic and Yes atraumatic Eyes General: appearance normal, both eyes and all related structures Pupils: Equal, round and reactive pupils present EOM: EOMs intact bilaterally Neck Neck: Yes supple and No lymphadenopathy Thyroid: Thyroid normal Lymphatic: no lymphadenopathy noted Resp Effort & Inspection: normal respiratory effort and able to speak in complete sentences Auscultation: clear to auscultation bilaterally Cardio Heart sounds: S1 normal heart sound present and S2 normal heart sound present GI Palpation (GI): Soft to palpation and nontender Auscultation: normal bowel sounds General: Yes no CVA tenderness Back/Spine/Pelvis Back: no CVA tenderness Skin General skin exam: elasticity normal and turgor normal Neuro General: patient oriented x3 and gait normal Cranial nerves: Yes Equal, round and reactive pupils present Speech: No Abnormal speech present Sensory Exam: No Sensory deficit (Neuro) Coordination: tandem gait normal and Romberg test negative Extrem General: Yes normal exam except as noted and No edema Coding Level of Care Code Est Pt Level 3 (98067) Est Pt Prev Care 40-64y(24746) Diagnoses Encounter for general adult medical examination with abnormal findings Z00.01 Strain of neck muscle, initial encounter S16.1XXA Encounter type: initial encounter Anxiety, generalized F41.1 Additional Codes ANU-7 Assessment Billing - ANU-7 Assessment Tool: ANU-7 Assessment 41793 ([id number]) Assessment & Plan Assessment & Plan (1) Encounter for general adult medical examination with abnormal findings: Code(s): Z00.01 - Encounter for general adult medical examination with abnormal findings Category: Medical (2) Cervical strain: Code(s): S16.1XXA - Strain of muscle, fascia and tendon at neck level, initial encounter Category: Medical Qualifiers: Encounter type: initial encounter Qualified Code(s): S16.1XXA - Strain of muscle, fascia and tendon at neck level, initial encounter (3) Anxiety, generalized: Code(s): F41.1 - Generalized anxiety disorder Category: Medical Plan Patient is a 42-year-old female came in today for physical examination Mammogram is up-to-date OBGYN visit is up-to-date Last set of lab done August of this year reviewed Did some exercise over the weekend, afterwards had pain right side of neck Which is getting better Neck is completely supple today without any pain Had colonoscopy through Dr. Werner recently Next colonoscopy will be in 10 years Only medication from this office is sertraline for anxiety Patient is tolerating medication and it is helping her. Medications: Refilled sertraline 100 mg PO DAILY 90 tabs 3RF F41.9 - Anxiety disorder, unspecified
== END 2023-12-04 16:01 | disposition home or self-care (01) ==
PROVIDERS: PCP Internal Medicine; Visit Provider Internal Medicine
DX: Z00.00 Encounter for general adult medical examination without abnormal findings (principal); S16.1XXA Strain of muscle, fascia and tendon at neck level, initial encounter; F41.1 Generalized anxiety disorder

== ENCOUNTER → 2023-12-04 15:14 | Outpatient (BNVA) | payer OTHER, SELFPAY | PROVIDERS: PCP Internal Medicine; Visit Provider Internal Medicine | DX: Z00.01 Encounter for general adult medical examination with abnormal findings (principal); S16.1XXA Strain of muscle, fascia and tendon at neck level, initial encounter; F41.1 Generalized anxiety disorder; Z79.899 Other long term (current) drug therapy; X58.XXXA Exposure to other specified factors, initial encounter; Y93.9 Activity, unspecified; Y92.9 Unspecified place or not applicable; Y99.9 Unspecified external cause status | CPT/HCPCS: 96127 ==

== ENCOUNTER 2024-01-09 09:22 | Outpatient (AMB) | payer OTHER, SELFPAY ==
[2024-01-09 09:27] VITALS: BP 136/79; PULSE 75; BMI 24.8
--- NOTE | 2024-01-09 09:27 | A.OFFVIS_ITS ---
Vital Signs 01/09/24 09:27 01/09/24 09:39 01/09/24 09:42 Height 5 ft 3 in Weight 140 lb 3.424 oz BMI 24.8 BP 136/79 120/70 123/75 Blood Pressure Location Lt brachial Lt brachial Lt brachial Position Supine Sitting Sitting Pulse 75 77 84 Intake Visit Reasons: 2 yrs followup w/ekg dx: pots Intake Note: 2yr F/U. Pt c/o of intermittent ankle swelling. 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 Accompanied by: Self / Same As Patient Allergies prochlorperazine [From COMPAZINE] Allergy (Intermediate, Verified 12/04/23 15:22) DYSTONIC, muscle spasms buspirone [From BuSpar] Adverse Reaction (Mild, Verified 12/04/23 15:22) Abdominal Pain Environmental Allergy (Intermediate, Uncoded 08/20/23 09:25) Runny Nose Medication List - Last Reconciled 01/09/24 by Duane Paige MD amitriptyline 30 mg PO BEDTIME cromolyn 200 mg (10 mL) PO QID 90 days desogestrel-ethinyl estradiol 0.15-0.03 mg (Apri) 1 tab PO DAILY epinephrine 1 mL IM NEEDED famotidine 40 mg PO BID fludrocortisone 0.2 mg (2 x 0.1 mg) PO DAILY gabapentin 200 mg (2 x 100 mg) PO BEDTIME hyoscyamine sulfate 0.125 mg sublingual BID-TID PRN ivabradine (Corlanor) 5 mg PO BID gkgzks-gneqxsgf-ynsgtls 24,000-76,000 -120,000 unit (Creon) 2 caps PO TID 90 days loratadine 1 tab PO DAILY montelukast 10 mg PO BEDTIME omalizumab (Xolair) mg subcut pantoprazole 40 mg PO DAILY sertraline 100 mg PO DAILY sumatriptan succinate (Imitrex) take 1 tab at onset of headache; if no relief may repeat 1 tab after at least 2 hrs; max = 4 tabs/24 hr PO HPI Comments Details: Natividad comes for follow-up. Patient denies any prolonged palpitations, lightheadedness syncope. Overall doing well. Notice that after prolonged standing notices some edema around the ankles. Denies any shortness of breath, orthopnea, PND. Denies any exertional chest pain. Continues to have GI symptoms related to mast cell activation. [facility] Medical History Bicornuate uterus Mast cell activation syndrome Anemia Postural orthostatic tachycardia syndrome Atrial tachycardia Anxiety Gastroparesis Asthma Surgical History History of Leonardo fundoplication Hx of colonoscopy H/O esophagogastroduodenoscopy Family History Mother Fibromyalgia Diabetes Sister No problems noted. Maternal Aunt Uterine cancer Social History Household Members: None Housing: Condominium Alcohol intake: former Patient Tobacco Use Status: Never used Tobacco e-Cigarette/Vaping Use: Never Used Second Hand Smoke Exposure: No service: No Current occupational status: employed ([employer]) Cognitive needs: No Hearing needs: No Vision needs: Yes Female Reproductive History Menstrual Age of Menarche: 9 Review of Systems Const Denies chills, Denies fatigue, Denies fever(s), Denies weight gain and Denies weight loss ENT Denies dizziness Card Denies chest pain, Denies leg edema, Denies lightheadedness, Denies palpitations, Denies dyspnea on exertion, Denies orthopnea and Denies other Resp Denies cough and Denies dyspnea on exertion GI Denies hematochezia and Denies change in stool character Musc Denies abnormal gait, Denies muscle weakness, Denies numbness, Denies radiating pain into limb and Denies tingling Neuro Denies abnormal gait, Denies dizziness, Denies numbness and Denies tingling Endo Denies fatigue and Denies palpitations Physical Exam Vital Signs: Last Vital Signs Pulse 84 01/09/24 09:42 BP 123/75 01/09/24 09:42 BMI result Body Mass Index 24.8 Const General: cooperative, comfortable, alert and awake Nutritional Appearance: thin Orientation/consciousness: patient oriented x3 Limitations: no limitations Neck Neck: Yes trachea midline, Yes supple and Yes no JVD Chest Chest palpation & inspection: normal inspection of the chest Resp Effort & Inspection: normal respiratory effort Auscultation: clear to auscultation bilaterally Cardio Jugular venous distension: no JVD Palpation: normal PMI Rate: regular rate Rhythm: regular rhythm Heart sounds: S1 normal heart sound present and S2 normal heart sound present GI Auscultation: normal bowel sounds Skin General skin exam: no rashes or lesions noted Neuro General: patient oriented x3 and no focal motor deficits Extrem General: Yes no clubbing, cyanosis or edema Psych Appearance: grossly normal Office Procedures EKG Details: EKG shows normal sinus rhythm with right atrial enlargement 69 beats per minute otherwise normal EKG 31430-[id number], Complete Assessment & Plan Assessment & Plan (1) Postural orthostatic tachycardia syndrome: Comment: [place] with [facility] [place] Code(s): I49.8 - Other specified cardiac arrhythmias Category: Medical Plan: Postural orthostatic tachycardia syndrome related to dysautonomia syndrome. Clinically doing extremely well on current Florinef as well as Corlanor therapy. Symptoms are significantly optimized. Noted some leg edema probably from sodium retention. Advise compression venous stocking. Advised to continue to participate in physical activity and participate in more supine exercises to improve her parasympathetic tone. Advised to maintain adequate hydration and salt intake. Advised to monitor blood pressure intermittently at home. Continue treatment for mast cell activation syndrome. Orthostatic precautions were discussed. Follow up in the clinic in 2 years time, sooner p.r.n.. Thank you for allowing me to partake in care Coding Level of Care Code Est Pt Level 4 (52536) Complex EM visit Add On G2211 Diagnoses Postural orthostatic tachycardia syndrome I49.8 CPT Codes EKG - CPT: 32097-[id number], Complete ([id number])
[2024-01-09 09:39] VITALS: BP 120/70; PULSE 77
[2024-01-09 09:42] VITALS: BP 123/75; PULSE 84
== END 2024-01-09 09:48 | disposition home or self-care (01) ==
PROVIDERS: PCP Internal Medicine; Visit Provider Internal Medicine Cardiovascular Disease
DX: I49.8 Other specified cardiac arrhythmias (principal)
CPT/HCPCS: 93010; 99214

== ENCOUNTER → 2024-01-09 09:22 | Outpatient (BNVA) | payer OTHER, SELFPAY | PROVIDERS: PCP Internal Medicine; Visit Provider Internal Medicine Cardiovascular Disease | DX: I49.8 Other specified cardiac arrhythmias (principal) | CPT/HCPCS: 93005 ==

== ENCOUNTER 2024-01-21 09:50 | Outpatient (AMB) | payer OTHER, SELFPAY ==
--- NOTE | 2024-01-21 09:58 | MHC.OFFVIS ---
Vital Signs 01/21/24 10:01 Height 5 ft 3 in Weight 136 lb 10.986 oz BMI 24.2 BP 146/72 H Blood Pressure Location Lt brachial Position Sitting Pulse 96 Intake Visit Reasons: 5 month follow up Intake Note: Natividad presents in the office as a 5 month follow up. CC: states that she is not having any GI concerns at this time. 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 VCE: was normal but didn;t reach cecum MRe- constipation, no active inflammation RAST- pos for allergy to egg white and hazelnut tryptase x 2 elevated at 15, plasma histamine 3.4 fecal elastase--normal fecal fat neg calprotectin borderline she felt welchol was giving her epigastric pain and cut down levsin was helping her most of the time she was referred to hematology due to sx and and high tryptase, had BM bx done, no evidence of systemic mastocytosis t this time seeing acute care clinical nurse specialist , and ketotifen may be an additional agent used for sx also discussion about checking for early Systemic mastocysosis with CKIT mutation analysis She had EGD 06/2020 with dilation due to dysphagia she was changed to dexilant--------stopped it due to abdominal pain she got the allergy shots for dander and mold, and still has several more treatments to go with her aviculturist Repeat EGD 05/2021--balloon dilation, bx for mast cells with high numbers in duodenum, vocal cord erythema EGD with dilation and clancy: 04/25/22 mild gastritis mild laryngitis CLANCY: neg demeester, neg SAP--on PPI US was normal EGD with dilation 02/03--some bile refluxate noted US 05/2023- small renal stones nml LFT colonoscopy 2023- normal, no mastocytosis INTERIM: she remains on cecil 200 mg daily, seems to help with her abdominal pain swallowing has been good to fair at times EXAM: GENERAL: The patient is well developed and nontoxic. VITAL SIGNS:see workflow HEENT: Nonicteric sclerae, PERRLA, EOMI. Oropharynx clear. Moist mucous membranes. Conjunctivae appear well perfused. No thyroid mass. CHEST: Chest wall is nontender. HEART: Regular rate and rhythm without murmurs. LUNGS: Clear to auscultation bilaterally. ABDOMEN: Soft, positive bowel sounds, nontender, no organomegaly.no flank tenderness SKIN: No rash, no excessive bruising, petechiae, or purpura. NEUROLOGIC: Cranial nerves II-XII intact without motor/sensory deficit. MS: nml Assessment & Plan 1 Elevated serum tryptase--being monitored 2 Mast cell disorder: overall control is good 3. dysphagia s/p dilation with good effect -not an issue 4. Epigastric pain, better with levsin ?related to MIRYAM or spasm, IBS Plan: 1/ cont gabapentin 200 mg once daily PFSH Medical History Bicornuate uterus Mast cell activation syndrome Anemia Postural orthostatic tachycardia syndrome Atrial tachycardia Anxiety Gastroparesis Asthma Surgical History History of Leonardo fundoplication Hx of colonoscopy H/O esophagogastroduodenoscopy Family History Mother Fibromyalgia Diabetes Sister No problems noted. Maternal Aunt Uterine cancer Social History Household Members: None [facility] Alcohol intake: former Patient Tobacco Use Status: Never used Tobacco e-Cigarette/Vaping Use: Never Used Second Hand Smoke Exposure: No service: No Current occupational status: employed ([employer]) Cognitive needs: No Hearing needs: No Vision needs: Yes Female Reproductive History Menstrual Age of Menarche: 9 Physical Exam Vital Signs: Last Vital Signs Pulse 96 01/21/24 10:01 BP 146/72 H 01/21/24 10:01 BMI result Body Mass Index 24.2 Assessment & Plan Assessment & Plan (1) Mast cell disorder: Code(s): D47.09 - Other mast cell neoplasms of uncertain behavior Category: Medical Plan: see above Coding Level of Care Code Est Pt Level 3 (13581) Diagnoses Mast cell disorder D47.09
[2024-01-21 10:01] VITALS: BP 146/72; PULSE 96; BMI 24.2
== END 2024-01-21 10:33 | disposition home or self-care (01) ==
PROVIDERS: PCP Internal Medicine; Visit Provider Internal Medicine Gastroenterology
DX: D47.09 Other mast cell neoplasms of uncertain behavior (principal)
CPT/HCPCS: 99213

== ENCOUNTER → 2024-01-21 09:50 | Outpatient (BNVA) | payer OTHER, SELFPAY | PROVIDERS: PCP Internal Medicine; Visit Provider Internal Medicine Gastroenterology ==

== ENCOUNTER 2024-02-01 14:10 | Outpatient (AMB) | payer OTHER, SELFPAY ==
--- NOTE | 2024-02-01 14:29 | A.OFFVIS_ITS ---
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 Present Allergies prochlorperazine [From COMPAZINE] Allergy (Intermediate, Verified 02/01/24 14:30) DYSTONIC, muscle spasms buspirone [From BuSpar] Adverse Reaction (Mild, Verified 02/01/24 14:30) Abdominal Pain Environmental Allergy (Intermediate, Uncoded 01/21/24 10:04) Runny Nose Is last menstrual period known: Yes Last menstrual period: 01/26/24 HPI Comments Details: Patient is here today for a follow up on her cycle control pills, she reports breakthrough bleeding when long-term cycling but has been able to take a break and get back on schedule, overall she reports doing well and has no other concerns. Utilizing benefits of medication for mast cell activation syndrome. She denies any contraindications to control such as: migraines with aura, history of DVT or pulmonary emboli, high blood pressure, liver disease, thrombolic disorders, Lupus, +MEHNAZ, breast cancer, or smoking. [facility] Medical History Bicornuate uterus Mast cell activation syndrome Anemia Postural orthostatic tachycardia syndrome Atrial tachycardia Anxiety Gastroparesis Asthma Surgical History History of Leonardo fundoplication Hx of colonoscopy H/O esophagogastroduodenoscopy Family History Mother Fibromyalgia Diabetes Sister No problems noted. Maternal Aunt Uterine cancer Social History Household Members: None Housing: Condominium Alcohol intake: former Patient Tobacco Use Status: Never used Tobacco e-Cigarette/Vaping Use: Never Used Second Hand Smoke Exposure: No service: No Current occupational status: employed ([employer]) Cognitive needs: No Hearing needs: No Vision needs: Yes Female Reproductive History Menstrual Age of Menarche: 9 Duration of menses: 6-7 days Date of last menstrual period: 01/26/24 control method: pills Review of Systems Const All systems reviewed & are unremarkable except as noted in HPI and below Endo Reports no additional complaints Physical Exam Vital Signs: Last Vital Signs BP 122/84 02/01/24 14:30 BMI result Body Mass Index 25.2 Const General: cooperative, healthy appearing and no acute distress Psych Appearance: well kempt Attitude: cooperative Thought process: Normal thought process present Assessment & Plan Assessment & Plan (1) Surveillance for control, oral contraceptives: Code(s): Z30.41 - Encounter for surveillance of contraceptive pills Plan Continue with OCPs as directed. Inform office if any medical changes or contraindications to medication use. control hormone use warnings: go to ER if and loss of vision, blindness, severe headache, chest pain or difficulty breathing, severe abdominal pain, or any pain or swelling in an extremity. Annual exam as scheduled for May of 2024. Refills to be sent in at this time. The patient expressed understanding and agreement with the plan of care. All of her questions and concerns were addressed to the best of my ability. This note is constructed using voice recognition software. While every effort has been made to ensure accuracy, supervisor ski production errors may have been included. Medications: Refilled desogestrel-ethinyl estradiol 0.15-0.03 mg (Apri) continuous dosing, skip placebo week 1 tab PO DAILY 112 tabs 1RF Coding Level of Care Code Est Pt Level 3 (63921) Diagnoses Surveillance for control, oral contraceptives Z30.41
[2024-02-01 14:30] VITALS: BP 122/84; BMI 25.2
== END 2024-02-01 15:42 | disposition home or self-care (01) ==
LOC: HO.HWS 14:10
PROVIDERS: PCP Internal Medicine; Visit Provider Advanced Practice Midwife
DX: Z30.41 Encounter for surveillance of contraceptive pills (principal)
CPT/HCPCS: 99213

== ENCOUNTER → 2024-02-01 14:10 | Outpatient (BNVA) | payer OTHER, SELFPAY | PROVIDERS: PCP Internal Medicine; Visit Provider Advanced Practice Midwife ==

== ENCOUNTER 2024-06-12 12:51 | Outpatient (AMB) | payer OTHER, SELFPAY ==
--- NOTE | 2024-06-12 12:56 | MHC.OFFVIS ---
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: Rural Sociologist Present (Leela) Accompanied by: Self / Same As Patient Allergies prochlorperazine [From COMPAZINE] Allergy (Intermediate, Verified 06/12/24 13:03) DYSTONIC, muscle spasms buspirone [From BuSpar] Adverse Reaction (Mild, Verified 06/12/24 13:03) Abdominal Pain Environmental Allergy (Intermediate, Uncoded 01/21/24 10:04) Runny Nose Medication List - Last Reconciled 06/12/24 by Lili Little CNM amitriptyline 30 mg PO BEDTIME cromolyn 200 mg (10 mL) PO QID 90 days desogestrel-ethinyl estradiol 0.15-0.03 mg (Apri) 1 tab PO DAILY epinephrine 1 mL IM NEEDED famotidine 40 mg PO BID fludrocortisone 0.2 mg (2 x 0.1 mg) PO DAILY gabapentin 200 mg (2 x 100 mg) PO BEDTIME hyoscyamine sulfate 0.125 mg sublingual BID-TID PRN ivabradine 5 mg PO BID [id number] 24,000-76,000 -120,000 unit (Creon) 2 caps PO TID 90 days loratadine 1 tab PO DAILY montelukast 10 mg PO BEDTIME omalizumab (Xolair) mg subcut pantoprazole 40 mg PO DAILY sertraline 100 mg PO DAILY sumatriptan succinate (Imitrex) take 1 tab at onset of headache; if no relief may repeat 1 tab after at least 2 hrs; max = 4 tabs/24 hr PO Is last menstrual period known: Yes Last menstrual period: 05/15/24 Post menopausal: No Patient : No HPI HPI 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 And includes upper abdominal pain as well as other symptoms that are not necessarily typically allergic symptoms. She has seen a number of providers and most of her care is now with gastrointestinal providers as well as her primary care provider she was seeing an food trades assistants but they stopped taking insurance. She has started on a new injectable 2 week medication for that suppression as well. She notices some improvement being on control pills which she started on about a year ago to help suppress her menses and therefore her symptoms however even though her intention and plan is to take the pills continuously to avoid her. What ends up happening is she almost always has a breakthrough bleed that lasts for about 8-9 days it can be heavy and comes about every 4-6 weeks unscheduled. I discussed with her during this visit that perhaps she might be better served bike just going to a regularly scheduled shorter withdrawal bleed with regular OCPs and we did discuss that option but in addition she raised the question about taking estrogen blockers or something to really suppress things continuously discussed the concerns about menopausal and early menopausal and complete estrogen suppression that would occur with medications such as these such as Lupron which she has read about. Suggested also possibly considering Depo-Provera versus Nexplanon but the concern about long-term estrogen suppression was also addressed in terms of bone health and other concerns. After much discussion she thinks she might be interested in trying Depo-Provera 1st but I told her that it really needs to start when she has her next heavy menses when she is heavily bleeding for the best optimal effect and then she could continue with that for a while and see how she goes and consider other options after that we agreed on a six-month follow-up visit to see how she is doing with this plan and she will call with her next menses to try and start the Depo-Provera reviewed side effects of Depo-Provera and also Nexplanon and also what I am aware of for complete suppression with other methods and the concerns for bone health and the need for calcium rich diet and weight-bearing exercise also discussed other possible effects with her other medications and all of the issues with her migraines and her other symptoms that she attributes to the mast cells. [facility] Medical History Bicornuate uterus Mast cell activation syndrome Anemia Postural orthostatic tachycardia syndrome Atrial tachycardia Anxiety Gastroparesis Asthma Surgical History History of Leonardo fundoplication Hx of colonoscopy H/O esophagogastroduodenoscopy Family History Mother Fibromyalgia Diabetes Sister No problems noted. Maternal Aunt Uterine cancer Social History Household Members: None Housing: Condominium Alcohol intake: former Patient Tobacco Use Status: Never used Tobacco e-Cigarette/Vaping Use: Never Used Second Hand Smoke Exposure: No service: No Current occupational status: employed ([employer]) Cognitive needs: No Hearing needs: No Vision needs: Yes Female Reproductive History Menstrual Age of Menarche: 9 Duration of menses: 8-10 days Date of last menstrual period: 05/15/24 control method: pills Total pregnancies: 0 Date of last pap smear: 05/10/23 (negative ) Date of Mammogram: 06/12/23 (bi rad 1) History of abnormal mammogram: No Physical Exam Vital Signs: Last Vital Signs BP 120/80 06/12/24 13:04 BMI result Body Mass Index 24.8 Const General: healthy appearing, comfortable, no acute distress, well developed and alert Nutritional Appearance: average body habitus Orientation/consciousness: patient oriented x3 Limitations: no limitations HEENT Head: Yes normocephalic Neck Neck: Yes normal visual inspection Chest Chest palpation & inspection: normal inspection of the chest Breast/axilla inspection: normal inspection of the breasts and normal inspection of the axillae Breast/axilla palpation: normal palpation of the breasts and normal palpation of the axillae Resp Effort & Inspection: normal respiratory effort GI Inspection: Yes normal to inspection, No Abdominal wall edema and No distended Palpation (GI): Soft to palpation and nontender General: Yes Bimanual renal exam normal bilaterally External Female Exam: normal external appearance Neuro General: patient oriented x3 Results Reviewed Results Reviewed: me: Natividad Hilario Age/Sex: 42/F Attending: Marisa Rodriguez CNM : 1980 Submitted by: Marisa Rodriguez CNM Copies to: MR #: [id number] Status: DEP REF Collected: 05/10/23 Location: [facility] Received: 05/11/23 Interpretation Satisfactory for evaluation. Negative for intraepithelial lesion or malignancy. HPV mRNA E6/E7: NOT DETECTED This assay detects E6/E7 viral messenger RNA (mRNA) from 14 high-risk HPV types (16, 18, 31, 33, 35, 39, 45, 51, 52, 56, 58, 59, 66, 68) HPV testing performed by [facility], [place], [place]. See reference laboratory portion of the EMR for entire report. Clinical Information LMP: 04/20/23 Previous PAP test: 2019, WNL Material Received ThinPrep-Cervical Electronically Signed By: Cece Corbett 05/20/23 0024 The Pap Test is a screening procedure with the inherent possibility of both false negative and false positive results. Results should be interpreted in the context of historic and current clinical findings. Reliability of the Pap Test is enhanced by performing the test on a regular repetitive basis. Patient: Natividad Hilario Age/Sex: 42/F MR#: [id number] Page 1 of 1 Assessment & Plan Assessment & Plan (1) Breast screening: Code(s): Z12.39 - Encounter for other screening for malignant neoplasm of breast Category: Medical (2) Mast cell disorder: Code(s): D47.09 - Other mast cell neoplasms of uncertain behavior Category: Medical (3) Headache syndrome: Code(s): G44.89 - Other headache syndrome Category: Medical (4) Well woman exam (no gynecological exam): Code(s): Z00.00 - Encounter for general adult medical examination without abnormal findings Category: Medical (5) Breakthrough bleeding on OCPs: Code(s): N92.1 - Excessive and frequent menstruation with irregular cycle Category: Medical Plan Is a lengthy visit to discuss patient'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 And includes upper abdominal pain as well as other symptoms that are not necessarily typically allergic symptoms. She has seen a number of providers and most of her care is now with gastrointestinal providers as well as her primary care provider she was seeing an food trades assistants but they stopped taking insurance. She has started on a new injectable 2 week medication for that suppression as well. She notices some improvement being on control pills which she started on about a year ago to help suppress her menses and therefore her symptoms however even though her intention and plan is to take the pills continuously to avoid her. What ends up happening is she almost always has a breakthrough bleed that lasts for about 8-9 days it can be heavy and comes about every 4-6 weeks unscheduled. I discussed with her during this visit that perhaps she might be better served bike just going to a regularly scheduled shorter withdrawal bleed with regular OCPs and we did discuss that option but in addition she raised the question about taking estrogen blockers or something to really suppress things continuously discussed the concerns about menopausal and early menopausal and complete estrogen suppression that would occur with medications such as these such as Lupron which she has read about. Suggested also possibly considering Depo-Provera versus Nexplanon but the concern about long-term estrogen suppression was also addressed in terms of bone health and other concerns. After much discussion she thinks she might be interested in trying Depo-Provera 1st but I told her that it really needs to start when she has her next heavy menses when she is heavily bleeding for the best optimal effect and.... next heavy menses when she is heavily bleeding for the best optimal effect and then she could continue with that for a while and see how she goes and consider other options after that we agreed on a six-month follow-up visit to see how she is doing with this plan and she will call with her next menses to try and start the Depo-Provera reviewed side effects of Depo-Provera and also Nexplanon and also what I am aware of for complete suppression with other methods and the concerns for bone health and the need for calcium rich diet and weight-bearing exercise also discussed other possible effects with her other medications and all of the issues with her migraines and her other symptoms that she attributes to the mast cells. Depo-Provera with next heavy menses Then Depo every 12 weeks Follow-up visit 6 months Medications: New medroxyprogesterone (Depo-Provera) To start with next heavy menses then every 12 weeks. 150 mg IM Q12W 1 mL 5RF Coding Level of Care Code Est Pt Prev Care 40-64y(83110) Diagnoses Breast screening Z12.39 Mast cell disorder D47.09 Headache syndrome G44.89 Well woman exam (no gynecological exam) Z00.00 Breakthrough bleeding on OCPs N92.1
[2024-06-12 13:04] VITALS: BP 120/80; BMI 24.8
== END 2024-06-12 14:10 | disposition home or self-care (01) ==
LOC: HO.HWS 12:51
PROVIDERS: PCP Internal Medicine; Visit Provider Advanced Practice Midwife
DX: Z01.419 Encounter for gynecological examination (general) (routine) without abnormal findings (principal); N92.1 Excessive and frequent menstruation with irregular cycle; D47.09 Other mast cell neoplasms of uncertain behavior; G44.89 Other headache syndrome
CPT/HCPCS: 99396

== ENCOUNTER 2024-06-17 10:17 | Outpatient (REF) | payer OTHER, SELFPAY | END 2024-06-17 10:18 | disposition home or self-care (01) | LOC: HO.MAMMO 10:17 | PROVIDERS: PCP Internal Medicine; Visit Provider Internal Medicine | DX: Z12.31 Encounter for screening mammogram for malignant neoplasm of breast (principal) | CPT/HCPCS: 77063; 77067 ==

== ENCOUNTER → 2024-06-17 10:30 | Outpatient (BNV) | payer OTHER, SELFPAY | PROVIDERS: PCP Internal Medicine; Visit Provider Internal Medicine | DX: Z12.31 Encounter for screening mammogram for malignant neoplasm of breast (principal) | CPT/HCPCS: 77063; 77067 ==

== ENCOUNTER 2024-06-23 08:46 | Outpatient (REF) | payer OTHER, SELFPAY ==
[2024-06-23 09:37] LABS: MANUAL DIFF FLAG NO
[2024-06-23 09:47] LABS: Basophils Absolute Auto 0.1 X10*3/uL (0.0-0.2); Basophils Percent Auto 1.2 % (0-2); Hemoglobin 12.9 g/dl (12.0-16.0); Imm Gran Abs Auto 0.01 X10*3/uL (0.00-0.03); Imm Gran Pct Auto 0.2 % (0.0-0.4); Lymphocytes Absolute Auto 1.4 X10*3/uL (1.2-4.9); Lymphocytes Percent Auto 21.3 % (20-40); Mean Corpuscular HGB Conc 33.1 g/dl (31.0-35.0); Mean Corpuscular Hemoglobin 30.4 pg (27.0-33.0); Mean Platelet Volume 10.7 fL (9.4-12.3); Monocytes Absolute Auto 0.5 X10*3/uL (0.1-1.2); Monocytes Percent Auto 6.8 % (2-11); Neutrophils Absolute Auto 4.6 x10*3/uL (2.0-8.3); Neutrophils Percent Auto 70.5 % (45-73); Platelet Count 317 X10*3/uL (160-400); Red Blood Count 4.24 X10*6/uL (4.20-5.50); Red Cell Distribution Width 13.2 % (11.0-16.0); White Blood Count 6.6 X10*3/uL (4.8-10.8)
[2024-06-23 10:32] LABS: Alanine Aminotransferase 20 U/L (0-31); Alkaline Phosphatase 72 U/L (39-117); Anion Gap 12 (12-20); Aspartate Amino Transferase 22 U/L (5-31); Bilirubin Total 0.2 mg/dL (0.0-1.0); Blood Urea Nitrogen 16 mg/dL (9-16); C Reactive Protein 0.67 mg/dL (< or = 0.50); Calcium 8.9 mg/dL (8.4-10.2); Carbon Dioxide 30 mmol/L (22-29); Chloride 104 mmol/L (96-108); Estimated Glomerular Filt Rate > 60; Glucose Random 92 mg/dL (60-115); Potassium 3.4 mmol/L (3.3-5.1); Sodium 143 mmol/L (135-145); Total Protein 7.3 g/dL (6.5-8.0)
== END 2024-06-23 08:47 | disposition home or self-care (01) ==
LOC: HO.LAB 08:46
PROVIDERS: PCP Internal Medicine; Visit Provider Internal Medicine Gastroenterology
DX: R10.10 Upper abdominal pain, unspecified (principal); K75.81 Nonalcoholic steatohepatitis (NASH)
CPT/HCPCS: 36415; 80053; 82550; 85025; 86140

== ENCOUNTER 2024-06-23 08:46 | Outpatient (AMB) | payer OTHER, SELFPAY ==
--- NOTE | 2024-06-23 08:58 | MHC.OFFVIS ---
Vital Signs 06/23/24 09:00 Height 5 ft 3 in Weight 136 lb 10.986 oz BMI 24.2 BP 151/85 H Blood Pressure Location Lt brachial Position Sitting Pulse 89 Intake Visit Reasons: 8 month follow up Intake Note: Natividad arizmendi in the office as a 8 month follow up. 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 VCE: was normal but didn;t reach cecum MRe- constipation, no active inflammation RAST- pos for allergy to egg white and hazelnut tryptase x 2 elevated at 15, plasma histamine 3.4 fecal elastase--normal fecal fat neg calprotectin borderline she felt welchol was giving her epigastric pain and cut down levsin was helping her most of the time she was referred to hematology due to sx and and high tryptase, had BM bx done, no evidence of systemic mastocytosis t this time seeing internet marketing specialist , and ketotifen may be an additional agent used for sx also discussion about checking for early Systemic mastocysosis with CKIT mutation analysis She had EGD 06/2020 with dilation due to dysphagia she was changed to dexilant--------stopped it due to abdominal pain she got the allergy shots for dander and mold, and still has several more treatments to go with her hydrogen treater Repeat EGD 05/2021--balloon dilation, bx for mast cells with high numbers in duodenum, vocal cord erythema EGD with dilation and reilly: 04/25/22 mild gastritis mild laryngitis REILLY: neg demeester, neg SAP--on PPI US was normal EGD with dilation 02/03--some bile refluxate noted US 05/2023- small renal stones nml LFT colonoscopy 2023- normal, no mastocytosis INTERIM: she has noted swallowing getting worse again and feels needs dilation again she stopped PPI taking famotidine 40 mg bid and happy with that for the moment she feels she is having more constipation recently after she eats she has right shoulder pain EXAM: GENERAL: The patient is well developed and nontoxic. VITAL SIGNS:see workflow HEENT: Nonicteric sclerae, PERRLA, EOMI. Oropharynx clear. Moist mucous membranes. Conjunctivae appear well perfused. No thyroid mass. CHEST: Chest wall is nontender. HEART: Regular rate and rhythm without murmurs. LUNGS: Clear to auscultation bilaterally. ABDOMEN: Soft, positive bowel sounds, nontender, no organomegaly.no flank tenderness SKIN: No rash, no excessive bruising, petechiae, or purpura. NEUROLOGIC: Cranial nerves II-XII intact without motor/sensory deficit. MS: nml Assessment & Plan 1 Elevated serum tryptase--being monitored 2 Mast cell disorder: overall control is good 3. dysphagia s/p dilation with good effect --recurring now 4. Epigastric pain, worse now, also in right shoudler ? retained gallstones Plan: 1/ EGD and dilation 2/ US RUQ--if neg then MRCP 3/ labs today [facility] Medical History Bicornuate uterus Mast cell activation syndrome Anemia Postural orthostatic tachycardia syndrome Atrial tachycardia Anxiety Gastroparesis Asthma Surgical History History of Leonardo fundoplication Hx of colonoscopy H/O esophagogastroduodenoscopy Family History Mother Fibromyalgia Diabetes Sister No problems noted. Maternal Aunt Uterine cancer Social History Household Members: None Housing: Condominium Alcohol intake: former Patient Tobacco Use Status: Never used Tobacco e-Cigarette/Vaping Use: Never Used Second Hand Smoke Exposure: No service: No Current occupational status: employed ([employer]) Cognitive needs: No Hearing needs: No Vision needs: Yes Female Reproductive History Menstrual Age of Menarche: 9 Physical Exam Vital Signs: Last Vital Signs Pulse 89 06/23/24 09:00 BP 151/85 H 06/23/24 09:00 BMI result Body Mass Index 24.2 Assessment & Plan Assessment & Plan (1) Upper abdominal pain: Code(s): R10.10 - Upper abdominal pain, unspecified Category: Medical Plan: as above Orders: Orders C Reactive Protein Today R10.10 - Upper abdominal pain, unspecified Complete Blood Count Auto Diff Today R10.10 - Upper abdominal pain, unspecified Comprehensive Met. Panel Today K75.81 - Nonalcoholic steatohepatitis ([place]), R10.10 - Upper abdominal pain, unspecified Creatine Kinase Total Today R10.10 - Upper abdominal pain, unspecified US abdomen complete Today R10.10 - Upper abdominal pain, unspecified Coding Level of Care Code Est Pt Level 4 (68255) Diagnoses Upper abdominal pain R10.10
[2024-06-23 09:00] VITALS: BP 151/85; PULSE 89; BMI 24.2
== END 2024-06-23 09:17 | disposition home or self-care (01) ==
LOC: HO.HGI 08:47
PROVIDERS: PCP Internal Medicine; Visit Provider Internal Medicine Gastroenterology
DX: R10.10 Upper abdominal pain, unspecified (principal)
CPT/HCPCS: 99214

== ENCOUNTER 2024-08-13 09:43 | Outpatient (REF) | payer OTHER, SELFPAY ==
--- NOTE | ~2024-08-13 | US_ITS ---
EXAMINATION: US ABDOMEN HISTORY: R10.10 - Upper abdominal pain, unspecified TECHNIQUE: Real-time grayscale ultrasound imaging of the abdomen was performed and images were reviewed. COMPARISON: Comparison is made with the prior examination dated 05/22/2023. FINDINGS: Liver: The right lobe of the liver measures 15.9 cm in size. The left lobe of the liver measures 8.5 cm in size. The liver demonstrates mildly increased echotexture, consistent with steatosis. No focal mass or intrahepatic biliary ductal dilatation is identified. There is normal hepatopedal flow in the portal vein. Gallbladder and biliary tree: The gallbladder is surgically absent. The common bile duct is normal in caliber measuring 5 mm. Kidneys: The right kidney measures 10.1 cm in length. The left kidney measures 10.4 cm in length. There is a 2 mm nonobstructing calculus at the upper pole of the right kidney. Multiple tiny echogenic foci are seen throughout both kidneys which may represent additional nonobstructing calculi or calcified vessels. There is no hydronephrosis. Pancreas: The pancreatic head, neck, and body are unremarkable. The pancreatic tail is obscured by bowel gas. Spleen: The spleen is normal in size and contour, measuring 8.5 cm in length. Abdominal aorta and inferior vena cava: The visualized portions of the abdominal aorta and inferior vena cava are normal in caliber. There is no free fluid in the abdomen. US/US abdomen complete IMPRESSION: 1. Mild hepatic steatosis. 2. 2 mm nonobstructing right renal calculus. Possible additional nonobstructing bilateral renal calculi. Electronically signed by: Rahat Kohler MD 08/13/2024 11:24 AM EDT
== END 2024-08-13 09:44 | disposition home or self-care (01) ==
LOC: HO.US 09:43
PROVIDERS: PCP Internal Medicine; Visit Provider Internal Medicine Gastroenterology
DX: R10.10 Upper abdominal pain, unspecified (principal)
CPT/HCPCS: 76700

== ENCOUNTER → 2024-08-13 09:45 | Outpatient (BNV) | payer OTHER, SELFPAY | PROVIDERS: PCP Internal Medicine; Visit Provider Radiology Diagnostic Radiology | DX: N28.1 Cyst of kidney, acquired (principal) | CPT/HCPCS: 76700 ==

== ENCOUNTER 2024-08-20 08:57 | Day surgery (SDC) | payer OTHER, SELFPAY ==
[2024-08-18 14:04] VITALS: BMI 24.3
--- NOTE | 2024-08-19 09:03 | P.CONAN_ITS ---
Documented by User: Natividad Pitts NP 08/19/24 09:07 HPI - Anesthesia Eval Consult details Narrative: 43yo F for Upper Endoscopy with Dilitation s/p Colonoscopy 10/2023 with MAC - no issue with anesthesia s/p Upper Endoscopy with Balloon Dilitation 01/2023 with TIVA Mast Cell Activ Syndrome. Pepcid and Benadryl preop effective POTS: Follows [facility] Cardiology. Last office visit 12/2023 - stable with routine 2 year f/u [facility] Active Problems Active Problems: All Active Problems Breakthrough bleeding on OCPs (Acute) Well woman exam (no gynecological exam) (Acute) Cervical strain (Acute) Regurgitant esophagitis (Acute) Upper abdominal pain (Acute) Encounter for annual routine gynecological examination (Acute) Anxiety, generalized (Acute) Vitamin A deficiency (Acute) Hypoglycemia (Acute) Encounter for general adult medical examination with abnormal findings (Acute) Palpitations (Acute) Environmental allergies (Acute) Headache syndrome (Acute) Breast screening (Acute) Mast cell disorder (Acute) Elevated serum tryptase (Acute) Elevated serum tryptase (Acute) Anemia (Acute) Postural orthostatic tachycardia syndrome (Acute) Anxiety (Acute) Past Medical History Medical History Bicornuate uterus Mast cell activation syndrome Anemia Postural orthostatic tachycardia syndrome Atrial tachycardia Anxiety Gastroparesis Asthma Family History Family History Mother Fibromyalgia Diabetes Sister No problems noted. Maternal Aunt Uterine cancer Family history of problems with anesthesia: No Surgical History Surgical History (Updated 08/18/24 @ 14:00 by Deloris Sr RN) History of Leonardo fundoplication Hx of colonoscopy H/O esophagogastroduodenoscopy History of Problems with Anesthesia: No Social History Social History Household Members: None Housing: Condominium Alcohol intake: former Patient Tobacco Use Status: Never used Tobacco e-Cigarette/Vaping Use: Never Used Second Hand Smoke Exposure: No service: No Current occupational status: employed ([employer]) Cognitive needs: No Hearing needs: No Vision needs: Yes Meds Allergies Allergy/AdvReac Type Severity Reaction Status Date / Time prochlorperazine (From Allergy Intermediate DYSTONIC, Verified 06/23/24 09:01 COMPAZINE) muscle spasms buspirone (From BuSpar) AdvReac Mild Abdominal Verified 06/23/24 09:01 Pain Environmental Allergy Intermediate Runny Nose Uncoded 06/23/24 09:01 Home Medications ?Medication ?Instructions ?Recorded ?Confirmed ?Last Taken ?Type loratadine 10 mg tablet 1 tab PO DAILY 12/01/19 07/09/05 Unknown History sumatriptan succinate 50 mg tablet See Rx Instructions PO .COMPLEX 03/05/20 08/18/24 Unknown History (Imitrex) epinephrine 0.3 mg/0.3 mL 1 ml IM NEEDED anaphylaxi s 07/06/20 08/18/24 Unknown History injection, auto-injector amitriptyline 10 mg tablet 30 mg PO BEDTIME 03/08/21 0 08/18/24 Unknown History omalizumab 150 mg/mL subcutaneous mg subcut 03/09/23 0 06/12/24 Unknown History syringe (Xolair) famotidine 40 mg tablet 40 mg PO BID 08/20/23 Unknown History Exam Height,Weight and Vital Signs: Height 5 ft 3 in Weight 62.142 kg Pertinent Lab Results Pertinent Lab Results: Laboratory Tests 06/23/24 09:33 WBC 6.6 Hgb 12.9 Hct 39.0 Plt Count 317 Sodium 143 Potassium 3.4 Chloride 104 Carbon Dioxide 30 H BUN 16 Creatinine 0.75 Narrative Narrative: EKG 12/2023 Details: EKG shows normal sinus rhythm with right atrial enlargement 69 beats per minute otherwise normal EKG Assessment and Plan Assessment Anesthesia Assessment: Chart Reviewed Final Anesthetic Review Family History of Problems with Anesthesia: No History of Problems with Anesthesia: No Documented by User: Mainor Aparicio MD 08/20/24 10:25 [facility] Past Medical History Medical History Bicornuate uterus Mast cell activation syndrome Anemia Postural orthostatic tachycardia syndrome Atrial tachycardia Anxiety Gastroparesis Asthma Patient : No Family History Family History Mother Fibromyalgia Diabetes Sister No problems noted. Maternal Aunt Uterine cancer Surgical History Surgical History (Updated 08/18/24 @ 14:00 by Deloris Sr RN) History of Leonardo fundoplication Hx of colonoscopy H/O esophagogastroduodenoscopy Social History Social History Household Members: None [facility] Alcohol intake: former Patient Tobacco Use Status: Never used Tobacco e-Cigarette/Vaping Use: Never Used Second Hand Smoke Exposure: No service: No Current occupational status: employed ([employer]) Cognitive needs: No Hearing needs: No Vision needs: Yes Meds Allergies Allergy/AdvReac Type Severity Reaction Status Date / Time prochlorperazine (From Allergy Intermediate DYSTONIC, Verified 06/23/24 09:01 COMPAZINE) muscle spasms buspirone (From BuSpar) AdvReac Mild Abdominal Verified 06/23/24 09:01 Pain Environmental Allergy Intermediate Runny Nose Uncoded 06/23/24 09:01 Home Medications ?Medication ?Instructions ?Recorded ?Confirmed ?Last Taken ?Type loratadine 10 mg tablet 1 tab PO DAILY 12/01/19 0709/05 Unknown History sumatriptan succinate 50 mg tablet See Rx Instructions PO .COMPLEX 03/05/20 08/18/24 Unknown History (Imitrex) epinephrine 0.3 mg/0.3 mL 1 ml IM NEEDED anaphylaxi s 07/06/20 08/18/24 Unknown History injection, auto-injector amitriptyline 10 mg tablet 30 mg PO BEDTIME 03/08/21 0 08/18/24 Unknown History omalizumab 150 mg/mL subcutaneous mg subcut 03/09/23 0 06/12/24 Unknown History syringe (Xolair) famotidine 40 mg tablet 40 mg PO BID 08/20/23 Unknown History Exam Airway Mallampati Class: I TM Dist: >3cm Neck ROM: Full Loose/Missing/Broken Teeth: No Heart: ok Lungs: ok Assessment and Plan Assessment Anesthesia Assessment: Anesthesia Plan Discussed Final Anesthetic Review NPO: Yes ASA Class: II Final Preanesthetic Review: No Changes in Pt Med Stat, Meds/Allgs Chart Revi ewed, Consent Obtained/Reviewed and Anes Risks/Benef Reviewed Patient Risk: Intermediate Procedure Risk: Intermediate Anesthetic Plan Anesthetic Plan: Agree w/ Assess. and Plan and TIVA Disposition: Standard PACU
[2024-08-20 09:08] VITALS: BP 132/81; PULSE 97; RESP 20; TEMP 36.9; O2SAT 98; BMI 25.5
[2024-08-20] MEDS: Lactated Ringers 1,000 ML 100 ML IVCONT (09:19)
[2024-08-20 09:49] LABS: UPreg QC Valid YES
--- NOTE | 2024-08-20 10:11 | MHC.SHP ---
Pre-Procedural Eval Section A - 24 Hr Update-Section A only Date of Service: 08/20/24 Section B - Complete if H&P > 30 days Chief Complaint: Upper abdominal pain, unspecified Relevant Family History (Specify if Yes): No Relevant Social History: None Present Medications: see Short Stay Collaborative assessment Medical History: Significant History (Bicornuate uterus Mast cell activation syndrome Anemia Postural orthostatic tachycardia syndrome Atrial tachycardia Anxiety Gastroparesis Asthma) History of Previous Operations: Relevant previous surgery/procedure and date(s) (History of Leonardo fundoplication Hx of colonoscopy H/O esophagogastroduodenoscopy) Allergies: Allergies Allergy/AdvReac Type Severity Reaction Status Date / Time prochlorperazine (From Allergy Intermediate DYSTONIC, Verified 06/23/24 09:01 COMPAZINE) muscle spasms buspirone (From BuSpar) AdvReac Mild Abdominal Verified 06/23/24 09:01 Pain Environmental Allergy Intermediate Runny Nose Uncoded 06/23/24 09:01 Review of Systems Sugical H&P ROS: Negative: Constitution, Cardiovascular, Respiratory, Neurological, Psychiatric, Hem-Onc, Allergic/Immunologic, Gastrointestinal, Genitourinary, Musculoskeletal, Integumentary, Endocrine and Eyes/Ears/Nose/Throat Exam Surgical H&P Exam: Normal: HEENT, Normal: Heart, Normal: Lungs, Normal: Extremities, Normal: Abdomen, Normal: Skin and Normal: Neurological Plan Diagnosis/Plan: Unchanged I have reviewed the history and physical and performed a pertinent physical examination on my patient. No changes have occurred unless specified. Time Spent With Patient Time: Total time managing care of this patient today ____ minutes.
--- NOTE | 2024-08-20 10:38 | W.PM.OPN ---
Operative Note Operative Note Date of Service: 08/20/24 Narrative: Procedure Description: EGD Indication: dysphagia Anesthesia: MAC FLEXIBLE TRANSORAL UPPER GASTROINTESTINAL ENDOSCOPY UPPER ENDOSCOPY Consent: Indications for the procedure and potential complications of bleeding, perforation, reaction to medications and missed diagnosis were discussed with the patient and informed consent was obtained. Instrument: Olympus GIF H 190 J mid size upper endoscope Monitoring: Vital signs and clinical assessment, continuous EKG monitoring, Pulse oximetry, Carbon Dioxide monitoring and blood pressure monitoring were done throughout the procedure. Procedure: The patient was placed in the left lateral decubitis position and pre-procedure medications were administered and a bite block was placed. The endoscope was inserted into the mouth and advanced under direct vision to the third part of duodenum. A careful inspection was made as the upper endoscope was withdrawn including a retroflexed examination of the proximal stomach; Findings and interventions are described below. Findings: Larynx:normal Esophagus: GE junction at 37 cm, diaphragm hiatus at 37 cm, possible island of barretts mucosa, bx taken, balloon dilation at LES and UES to 20 mm, no tears seen Stomach: normal . Grade 2 flap valve on retroflexed examination of the cardia. prior fundoplication noted Duodenum: Normal bulb and descending duodenum, Intervention: Biopsies as noted above, balloon dilation Impression/Findings: possible barretts PLAN: await bx -cont PPI GERD precautions
[2024-08-20 10:47] VITALS: BP 121/80; PULSE 100; RESP 18; TEMP 36.1; O2SAT 99
[2024-08-20 11:00] VITALS: BP 136/77; PULSE 91; RESP 16; TEMP 36.1; O2SAT 98
== END 2024-08-20 12:15 | disposition home or self-care (01) ==
PROVIDERS: Nurse Practitioner; PCP Internal Medicine; Visit Provider Internal Medicine Gastroenterology
PROC: (CPT 43249; principal; 2024-08-20 10:50)
DX: R13.10 Dysphagia, unspecified (principal); R10.13 Epigastric pain; K44.9 Diaphragmatic hernia without obstruction or gangrene; K31.84 Gastroparesis; D89.40 Mast cell activation, unspecified; K75.81 Nonalcoholic steatohepatitis (NASH); D64.9 Anemia, unspecified; G90.A Postural orthostatic tachycardia syndrome [POTS]; J45.909 Unspecified asthma, uncomplicated; F41.9 Anxiety disorder, unspecified; Z79.899 Other long term (current) drug therapy; Z88.8 Allergy status to other drugs, medicaments and biological substances; Z98.890 Other specified postprocedural states
CPT/HCPCS: 43249; 43239; 81025; 88305; C1726; J1200; J1308; J2003; J2704

== ENCOUNTER → 2024-08-20 08:57 | Outpatient (BNV) | payer OTHER, SELFPAY | PROVIDERS: PCP Internal Medicine; Visit Provider Internal Medicine Gastroenterology | DX: K22.70 Barrett's esophagus without dysplasia (principal); R13.10 Dysphagia, unspecified | CPT/HCPCS: 43239; 43249 ==

== ENCOUNTER 2024-10-06 12:04 | Outpatient (AMB) | payer OTHER, SELFPAY ==
--- NOTE | 2024-10-06 12:05 | MHC.OFFVIS ---
Intake Visit Reasons: s/p egd w dilation Intake Note: Patient post op follow up EGD with dilation results. Patient cc: abdominalpain with bloating,and between diarrhea and constipation. 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 VCE: was normal but didn;t reach cecum MRe- constipation, no active inflammation RAST- pos for allergy to egg white and hazelnut tryptase x 2 elevated at 15, plasma histamine 3.4 fecal elastase--normal fecal fat neg calprotectin borderline she felt welchol was giving her epigastric pain and cut down levsin was helping her most of the time she was referred to hematology due to sx and and high tryptase, had BM bx done, no evidence of systemic mastocytosis t this time seeing billing collections specialist , and ketotifen may be an additional agent used for sx also discussion about checking for early Systemic mastocysosis with CKIT mutation analysis She had EGD 06/2020 with dilation due to dysphagia she was changed to dexilant--------stopped it due to abdominal pain she got the allergy shots for dander and mold, and still has several more treatments to go 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 Repeat EGD 05/2021--balloon dilation, bx for mast cells with high numbers in duodenum, vocal cord erythema EGD with dilation and clancy: 04/25/22 mild gastritis mild laryngitis CLANCY: neg demeester, neg SAP--on PPI US was normal EGD with dilation 02/03--some bile refluxate noted US 05/2023- small renal stones nml LFT colonoscopy 2023- normal, no mastocytosis EGD: 09/05 dilation done to 20 mm, bx of esophagus were normal INTERIM: swallowing is much better since procedure she has some epigastric pain, moderate, no triggers identified can be worse at night she can have issues with sleep hygiene having photosensitive rash EXAM: GENERAL: The patient is well developed and nontoxic. Relaxed, good color Assessment & Plan 1 Elevated serum tryptase--being monitored 2 Mast cell disorder: variable control 3. dysphagia s/p dilation with good effect 4. Epigastric pain, only on H2 addi, maybe related to histamine release and gastritis Plan: 1/ change to nizatadine and see if better effect, otherwise can go back to PPI 2/ advised on sun protection and covering up, sun screen [facility] Medical History Bicornuate uterus Mast cell activation syndrome Anemia Postural orthostatic tachycardia syndrome Atrial tachycardia Anxiety Gastroparesis Asthma Surgical History History of Leonardo fundoplication Hx of colonoscopy H/O esophagogastroduodenoscopy Family History Mother Fibromyalgia Diabetes Sister No problems noted. Maternal Aunt Uterine cancer Social History Household Members: None Housing: Condominium Alcohol intake: former Patient Tobacco Use Status: Never used Tobacco e-Cigarette/Vaping Use: Never Used Second Hand Smoke Exposure: No service: No Current occupational status: employed ([employer]) Cognitive needs: No Hearing needs: No Vision needs: Yes Female Reproductive History Menstrual Age of Menarche: 9 Telehealth Telehealth Telehealth Platform: [facility] Location of provider rendering services: practice address Location of patient: address on file Patient Identification confirmed using: Name, : Yes Telehealth method: video Patient verbally consented to treatment: Yes Patient verbally consented to billing insurance company: Yes Patient informed of any privacy concerns related to visit: Yes Minutes spent on Phone/Video with Pt.: 13 Assessment & Plan Assessment & Plan (1) Regurgitant esophagitis: Code(s): K21.00 - Gastro-esophageal reflux disease with esophagitis, without bleeding Category: Medical Plan: as above Medications: New nizatidine 300 mg PO BID 90 caps 0RF Discontinued pantoprazole Discontinued Reason: Doctor's Order 40 mg PO DAILY 90 tabs 2RF Coding Level of Care Code Tele Est Pt Level 3 (16259) Diagnoses Regurgitant esophagitis K21.00
== END 2024-10-06 13:28 | disposition home or self-care (01) ==
LOC: HO.HGI 12:04
PROVIDERS: PCP Internal Medicine; Visit Provider Internal Medicine Gastroenterology
DX: K21.00 Gastro-esophageal reflux disease with esophagitis, without bleeding (principal)
CPT/HCPCS: 98005

== ENCOUNTER 2024-10-29 10:29 | Outpatient (AMB) | payer OTHER, SELFPAY ==
--- NOTE | 2024-10-29 10:36 | MHC.OFFVIS ---
Vital Signs 10/29/24 10:36 Height 5 ft 3 in Intake Visit Reasons: 6 month migraine Allergies prochlorperazine (From COMPAZINE) Allergy (Intermediate, Verified 10/29/24 10:38) DYSTONIC, muscle spasms buspirone (From BuSpar) Adverse Reaction (Mild, Verified 10/29/24 10:38) Abdominal Pain Environmental Allergy (Intermediate, Uncoded 10/29/24 10:38) Runny Nose Medication List - Last Reconciled 10/29/24 by Reta Andres CNP amitriptyline 30 mg (3 x 10 mg) PO BEDTIME 90 days cromolyn 200 mg (10 mL) PO QID 90 days desogestrel-ethinyl estradiol 0.15-0.03 mg (Apri) 1 tab PO DAILY epinephrine 1 mL IM NEEDED fludrocortisone 0.2 mg (2 x 0.1 mg) PO DAILY gabapentin 200 mg (2 x 100 mg) PO BEDTIME hyoscyamine sulfate 0.125 mg sublingual BID-TID PRN ivabradine 5 mg PO BID enxhdy-mawqkmhg-sibupkp 24,000-76,000 -120,000 unit (Creon) 2 caps PO TID 90 days loratadine 1 tab PO DAILY medroxyprogesterone (Depo-Provera) 150 mg IM Q12W montelukast 10 mg PO BEDTIME nizatidine 300 mg PO BID omalizumab (Xolair) mg subcut sertraline 100 mg PO DAILY sumatriptan succinate (Imitrex) take 1 tab at onset of headache; if no relief may repeat 1 tab after at least 2 hrs; max = 4 tabs/24 hr PO HPI Comments Details: She was doing okay. She had few migraines a month, worse around her period with photophobia, sonophobia, and nausea. Sumatriptan as needed helps with 20 minutes to few hours. Sleep was generally okay. Mood was okay. 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 Mast cell activation disorder is under better control. It is worse in the heat with tachycardia, diarrhea, and stomach pains, rarely hives. She has migraine headaches that started in her early 20s. No triggers identified except if she gets hot. It starts with light sensitivity and then gets unilateral intense headache with nausea, photophobia, and sonophobia. She describes it as pressure and throbbing that can last from several hours to a day. Has been on Inderal 60mg/day for years for tachycardia which causes her blood pressure to be low so she is on fludrocortisone. [facility] Medical History (Updated 10/29/24 @ 10:38 by Reta Andres CNP) Bicornuate uterus Mast cell activation syndrome Anemia Postural orthostatic tachycardia syndrome Atrial tachycardia Anxiety Gastroparesis Asthma Surgical History History of Leonardo fundoplication Hx of colonoscopy H/O esophagogastroduodenoscopy Family History Mother Fibromyalgia Diabetes Sister No problems noted. Maternal Aunt Uterine cancer Social History Household Members: None Housing: Condominium Alcohol intake: former Patient Tobacco Use Status: Never used Tobacco e-Cigarette/Vaping Use: Never Used Second Hand Smoke Exposure: No service: No Current occupational status: employed ([employer]) Cognitive needs: No Hearing needs: No Vision needs: Yes Female Reproductive History Menstrual Age of Menarche: 9 Review of Systems Const Denies chills, Denies daytime sleepiness, Reports difficulty sleeping, Denies fatigue, Denies fever(s), Denies frequent falls, Reports headache(s), Denies increased appetite, Denies poor appetite, Denies snoring, Denies weakness, Denies weight gain and Denies weight loss Eyes Denies loss of vision ENT Denies vertigo, Denies dizziness, Reports headache(s) and Denies neck pain Card Denies chest pain at rest, Denies chest pain with activity, Denies syncope, Denies leg edema, Denies palpitations, Denies dyspnea and Denies dyspnea on exertion Resp Denies cough, Denies dyspnea, Denies dyspnea on exertion and Denies snoring GI Denies abdominal pain, Denies constipation, Denies heartburn, Denies diarrhea and Denies nausea Denies urinary frequency, Denies urinary incontinence and Denies urinary urgency Musc Denies abnormal gait, Denies back pain, Denies myalgias, Denies arthralgias, Denies neck pain, Denies numbness and Denies tingling Neuro Denies abnormal gait, Denies vertigo, Denies dizziness, Denies syncope, Denies frequent falls, Reports headache(s), Denies lack of coordination, Denies loss of vision, Denies memory loss, Denies numbness, Denies Other visual disturbances, Denies restless legs, Denies seizure-like activity, Denies tingling, Denies paresthesias, Denies tremor(s) and Denies weakness Psych Reports anxiety, Denies depression, Denies auditory hallucinations, Denies memory loss and Denies visual hallucinations Endo Denies fatigue and Denies palpitations Physical Exam Const Other: General Appearance:? normal, in no acute distress. Heart:? S1, S2 normal, no murmurs. Lungs:? clear anteriorly and posteriorly. Musculoskeletal:? normal. Extremities:? no edema. Psych:? alert, oriented, cognitive function intact, cooperative with exam. Neuro Other: Abnormal Neurological Findings:?none.? Mental Status: alert and oriented X 3. Normal attention, orientation, memory, and affect. Cranial Nerves: Pupils are equal, round, and reactive to light. External ocular muscles are intact. Visual acevedo are full, no ptosis. Face is symmetrical, no facial weakness or droop. Facial sensations are normal. Tongue protrudes in midline. Palate elevates symmetrically. Shoulder shrugging is normal Motor Examination: Normal muscle tone, bulk and strength. No atrophy or fasciculations. No drift of the extended upper extremities. DTR 2+. Plantars are flexor. Sensory Exam: Normal light touch, temperature, pinprick, vibration, and joint-position sensations. Rhomberg sign is absent. Coordination: No ataxia. No titubation. Rsshyy-ye-dnrw, bwuz-alam-ekob test, and rapid alternating movements were normal. Gait Exam: Within normal limits. Cerebellar Signs: Ijnnyu-cg-irwb and vppv-tw-utdg is normal. No dysdiadochokinesia. Extrapyramidal System: No tremor, rigidity with normal facial expressions. No bradykinesia. No bradyphrenia. Normal arm swing and posture. No propulsion or retropulsion. Speech: Normal. No dysphasia or dysarthria. Assessment & Plan Assessment & Plan (1) Migraine: Code(s): G43.909 - Migraine, unspecified, not intractable, without status migrainosus Category: Medical Qualifiers: Migraine type: unspecified Status migrainosus presence: without status migrainosus Intractability: not intractable Qualified Code(s): G43.909 - Migraine, unspecified, not intractable, without status migrainosus Plan: Continue amitriptyline 10mg 3 tablets at bedtime. Continue sumatriptan 50mg 1 tablet as needed for migraine. Coding Level of Care Code Est Pt Level 4 (82389) Diagnoses Migraine without status migrainosus, not intractable, unspecified migraine type G43.909 Migraine type: unspecified Status migrainosus presence: without status migrainosus Intractability: not intractable
== END 2024-10-29 10:43 | disposition home or self-care (01) ==
LOC: HO.HSM 10:30
PROVIDERS: PCP Internal Medicine; Referring Provider Internal Medicine; Visit Provider Registered Nurse
DX: G43.909 Migraine, unspecified, not intractable, without status migrainosus (principal)
CPT/HCPCS: 99214

== ENCOUNTER 2024-11-21 12:49 | Outpatient (AMB) | payer OTHER, SELFPAY ==
--- NOTE | 2024-11-21 13:41 | AM.OFFVISNUR ---
Vital Signs 11/21/24 13:42 Height 5 ft 3 in Weight 147 lb BMI 26.0 BP 132/76 Blood Pressure Location Lt brachial Position Sitting Intake Visit Reasons: depo ok per margarito Allergies prochlorperazine (From COMPAZINE) Allergy (Intermediate, Verified 10/29/24 10:38) DYSTONIC, muscle spasms buspirone (From BuSpar) Adverse Reaction (Mild, Verified 10/29/24 10:38) Abdominal Pain Environmental Allergy (Intermediate, Uncoded 10/29/24 10:38) Runny Nose Nursing Note Patient here for First Depo Provera injection. Patient informed to use condoms if having intercourse in the first 4 weeks after injection. Discussed potential side effects such as mood change, Headaches and irregular bleeding. Informed the injection does not prevent STD, and the injection is given every 12 weeks for continuous protection. UPT negative today. LMP 11/19/24. Next Injection scheduled for 02/20/25. Office Procedures Depo Questionnaire If YES to any of the following questions, please consult a provider. Date of last injection: 11/21/24 Date of last menstrual period: 11/19/24 Date of last gynecology exam: 06/12/24 Menstrual pattern since last injection has been: Not Applicable test in office results: Negative Irregular bleeding?: No Breast lumps or other breast changes?: No Changes in weight or appetite?: No Depression or changes in mood?: No Abnormal hair growth or loss?: No Skin problems (rash, acne, discoloration)?: No Pain at the injection site?: No Headaches?: No Nervousness?: No Abdominal pain or cramping?: No Dizziness or nausea?: No Fatigue or weakness?: No Decrease in sexual drive?: No Chest pain or shortness of breath?: No Swelling in arms or legs?: No Form completed by?: Fransisca Salguero LPN Office Meds Depo-Provera 150 mg/mL intramuscular syringe Performing Provider: Lili Little CNM Performing Location: [facility] [place] [facility] Administered by: Fransisca Salguero LPN on 11/21/24 13:42 Dose Route Admin Location Dispensed Lot Number Expiration Date [facility] Parap[employer] 150 mg IM left deltoid 1 mL [id number] 06/11/26 89255-620-75 [employer] [facility] Total Dispensed Waste 1 mL 0 % Results AMB Test Urine AMB Test Urine Negative Last Edit by Fransisca Salguero LPN on 11/21/24 13:48 Assessment & Plan Assessment & Plan Orders: Orders AMB Medroxyprogesterone Injection Patient Supplied Today Z30.42 - Encounter for surveillance of injectable contraceptive AMB HCG Urine Test Today Z32.02 - Encounter for test, result negative Coding Level of Care Code Established Pt Est Pt Level 1 (45578) Patient Type Established History Problem Focused Exam Problem Focused Medical Decision Making Straight Forward Time Spent (min) 20
[2024-11-21 13:42] VITALS: BP 132/76; BMI 26.0
== END 2024-11-21 13:12 | disposition home or self-care (01) ==
LOC: HO.HWS 12:49
PROVIDERS: PCP Internal Medicine; Visit Provider Advanced Practice Midwife
DX: Z30.42 Encounter for surveillance of injectable contraceptive (principal); Z32.02 Encounter for pregnancy test, result negative
CPT/HCPCS: 99499

== ENCOUNTER → 2024-11-21 12:49 | Outpatient (BNVA) | payer OTHER, SELFPAY | PROVIDERS: PCP Internal Medicine; Visit Provider Advanced Practice Midwife | DX: Z30.013 Encounter for initial prescription of injectable contraceptive (principal); Z32.02 Encounter for pregnancy test, result negative | CPT/HCPCS: 81025; 96372; J1050 ==

== ENCOUNTER 2025-01-07 08:47 | Outpatient (AMB) | payer OTHER, SELFPAY ==
[2025-01-07 08:52] VITALS: BP 128/78; PULSE 91; O2SAT 98; BMI 26.2
--- NOTE | 2025-01-07 08:52 | A.OFFPC_ITS ---
Vital Signs 01/07/25 08:52 Height 5 ft 3 in Weight 148 lb BMI 26.2 BP 128/78 Blood Pressure Location Lt brachial Position Sitting Pulse 91 Pulse Source Pulse Oximeter Pulse Oximetry (%) 98 Intake Visit Reasons: PE Allergies prochlorperazine (From COMPAZINE) Allergy (Intermediate, Verified 01/07/25 08:52) DYSTONIC, muscle spasms buspirone (From BuSpar) Adverse Reaction (Mild, Verified 01/07/25 08:52) Abdominal Pain Environmental Allergy (Intermediate, Uncoded 10/29/24 10:38) Runny Nose Medication List - Last Reconciled 01/07/25 by Keyon Fernandez MD amitriptyline 30 mg (3 x 10 mg) PO BEDTIME 90 days cromolyn 200 mg (10 mL) PO QID 90 days desogestrel-ethinyl estradiol 0.15-0.03 mg (Apri) 1 tab PO DAILY epinephrine 1 mL IM NEEDED fludrocortisone 0.2 mg (2 x 0.1 mg) PO DAILY gabapentin 200 mg (2 x 100 mg) PO BEDTIME hyoscyamine sulfate 0.125 mg sublingual BID-TID PRN ivabradine 5 mg PO BID tvxzsz-qzyhdocm-deddstf (pork) 24,000-76,000 -120,000 unit (Creon) 2 caps PO TID 90 days loratadine 1 tab PO DAILY medroxyprogesterone (Depo-Provera) 150 mg IM Q12W montelukast 10 mg PO BEDTIME nizatidine 300 mg PO BID omalizumab (Xolair) mg subcut sertraline 100 mg PO DAILY sumatriptan succinate take 1 tab at onset of headache; if no relief may repeat 1 tab after at least 2 hrs; PO 30 days Tobacco use date assessed: 01/07/25 Dental Screening Dental Screen Date: 01/07/25 Did you have a dental visit in the last 12 months?: Yes Did you have a dental problem in the last 6 months where you did not have access to dental care?: No Was dental information given to patient?: Patient has dentist HPI HPI Comments History of Present Illness Details History of Present Illness The patient is a 44-year-old individual presenting for a physical examination and management of chronic conditions, including a new complaint of fatigue. Esophageal Stricture: - The patient is followed by Dr. Werner for an esophageal issue and underwent an endoscopy with esophageal dilation, which seemed to help symptoms. - The current plan is monitoring. Migraine: - To manage migraines and other issues, the patient receives Depo-Provera injections from a contract administration manager, with the last visit in the spring. - Headaches have been significantly bett er since starting Depo-Provera, with only one migraine reported recently. - The patient continues to see a neurolo gist, Dr. Judith Brito. Mast Cell Activation Syndrome: - The patient's mast cell disorder is re portedly fairly under control, though some GI symptoms persist. - The patient is followed by an allergis t/project geologist every six months. - The current medication regimen include s cromolyn, fludrocortisone, montelukast, and Xolair. POTS: - The patient is followed by Dr. Grecia gunderson cardiology for an unspecified heart syndrome. Generalized Anxiety Disorder: - Anxiety is managed with sertraline 100 mg, which is reportedly effective and does not require adjustment at this time. that is the only med thru PCP office Eczema: - The patient reports a recurrent rash o n face that is intermittently pruritic, which improves with hydrocortisone cream but returns upon cessation. - The patient does not have a personal h istory of eczema but is aware it can be associated with mast cell disorders. Weight Gain: - The patient has noticed some weight ga in, which may be associated with Depo- Provera use, despite efforts to eat healthier and exercise more. 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 - Diet and Exercise: The patient reports trying to eat healthier and exercise more in the context of recent weight gain. Health Maintenance - Colonoscopy: Performed approximately o ne year ago 2022 Dr Werner, and was normal; next screening is due in 10 years. - Vaccinations: The patient has received the flu vaccine. - Breast Health: The patient receives br east exams from the TUMBLING INSTRUCTOR. - Laboratory Monitoring: No labs have be en done since June; an order for fasting labs will be placed. Tippo of Care - Dr. Werner, Gastroenterology - Allergy/underwriting support specialist - Dr. Judith Alexander, Neurology - Dr. Lili Little, TUMBLING INSTRUCTOR - Dr. Paige, Cardiology [facility] Medical History Bicornuate uterus Mast cell activation syndrome Anemia Postural orthostatic tachycardia syndrome Atrial tachycardia Anxiety Gastroparesis Asthma Surgical History History of Leonardo fundoplication Hx of colonoscopy H/O esophagogastroduodenoscopy Family History Mother Fibromyalgia Diabetes Sister No problems noted. Maternal Aunt Uterine cancer Social History Household Members: None [facility] Alcohol intake: former Patient Tobacco Use Status: Never used Tobacco e-Cigarette/Vaping Use: Never Used Second Hand Smoke Exposure: No service: No Current occupational status: employed ([employer]) Cognitive needs: No Hearing needs: No Vision needs: Yes Female Reproductive History Menstrual Age of Menarche: 9 Questionnaire PHQ-9 Over the last 2 weeks, how often have you been bothered by any of the following problems? 1. Little interest or pleasure in doing things: not at all 2. Feeling down, depressed, or hopeless: several days 3. Trouble falling or staying asleep, or sleeping too much: several days 4. Feeling tired or having little energy: several days 5. Poor appetite or overeating: not at all 6. Feeling bad about yourself - or that you are a failure or have let yourself or your family down: not at all 7. Trouble concentrating on things, such as reading the newspaper or watching television: several days 8. Moving or speaking so slowly that other people could have noticed. Or the opposite - being so fidgety or restless that you have been moving around a lot more than usual: not at all 9. Thoughts that you would be better off or of hurting yourself in some way: not at all Total score: 4 Depression Screening Interpretation: Negative Depression Screening Done: Yes 18471 - PHQ-9 Billing: Yes Source: Developed by Drs. Rahat Mtz, Jaqueline Burrell, Shekhar Carlson and colleagues, with an educational delores from [employer]. Thrive Questionnaire Date Thrive assessed: 12/02/24 I am a: Patient What is your living situation today?: I have a steady place to live Within the past 12 months, did the food you bought not last and you didn't have the money to get more?: Never true Within the past 12 months, did you worry whether your food would run out before you got money to buy more?: Never true Do you have trouble paying for medicines?: No Do you have trouble getting transportation to medical appointments?: No Do you have trouble paying your heating and electricity bill?: No Do you have trouble taking care of your child, family member or friend?: No Do you have trouble with day-to-day activities such as bathing, preparing meals, shopping, managing finances, etc.?: No Are you currently unemployed and looking for a job?: No Are you interested in more education?: No Please select the resources that you would like help with: None Currently or been in a relationship where the following occur: No concerns reported THRIVE Score: 0 AUDIT C Alcohol Use Questionnaire (AUDIT-C) 1. How often do you have a drink containing alcohol?: Monthly or less 2. How many drinks containing alcohol do you have on a typical day when you are drinking?: 1 or 2 3. How often do you have six or more drinks on one occasion?: Never Total Score: 1 Score Reviewed/Action Taken: Yes ANU-7 AMB Questionnaire ANU-7 Date ANU - 7 assessed: 01/07/25 Feeling nervous, anxious, or on edge: 1 = Several days Not being able to stop or control worryin = Not at all Worrying too much about different things: 1 = Several days Trouble relaxin = Several days Being so restless that it is hard to sit still: 0 = Not at all Becoming easily annoyed or irritable: 1 = Several days Feeling afraid as if something awful might happen: 1 = Several days Total ANU-7 score (0-4 normal; 5-9 mild; 10-14 moderate; 15-21 severe): 5 Source: Developed by Drs. Rahat Mtz, Jaqueline Burrell, Shekhar Carlson and colleagues, with an educational delores from [employer]. ANU-7 Assessment Billing ANU-7 Assessment Tool: ANU-7 Assessment 79867 Review of Systems Narrative Review of Systems - General: No fever no chills - Ear nose throat: No sore throat no hearing difficulty no ear pain - Cardiovascular: No syncope, no chest pain, no palpitations - Gastrointestinal: No nausea vomiting or diarrhea - Endocrine: No polyuria polydipsia no heat intolerance - Genitourinary: No dysuria - Skin: No new complaints Physical exam (Primary Care) Vital Signs: Last Vital Signs Pulse 91 01/07/25 08:52 BP 128/78 01/07/25 08:52 Pulse Ox 98 01/07/25 08:52 BMI result Body Mass Index 26.2 Tobacco/Smoking Status: Tobacco use Status Tobacco use date assessed 01/07/25 01/07/25 08:56 Patient Tobacco Use Status Never used Tobacco 01/07/25 08:56 e-Cigarette/Vaping Use Never Used 01/07/25 08:56 PHQ-9: PHQ-9 Score PHQ-9: Total score 4 01/07/25 08:56 Depression Screening Interpretation: Negative Thrive Assessment: Date of Thrive Assessment Date Thrive assessed 12/02/24 01/07/25 08:56 Currently or been in a relationship where the following occur: No concerns reported Narrative Diagnostic results - Colonoscopy (approximately 1 year ago): Results were normal. Physical Exam General: Cooperative, healthy appearing, comfortable, no acute distress Orientation: Patient oriented x3 Head: Normal to inspection Ears: Within normal limit visually Nose: Normal external nose present Face and sinus: Normal facial exam Eyes: Appearance normal, extraocular movement intact pupils reactive Neck: Normal visual inspection and supple Respiratory: Normal respiratory effort and able to speak in complete sentences. Clear to auscultation, no stridor Cardiovascular: S1 and S2 RRR GI: Normal to inspection. Soft to palpation and nontender Skin: Turgor normal, rash present, forhead eczematous Neuro: Patient oriented x3, motor sensory intact, balance intact, tandem pass Extremities: Normal to inspection, knees not okay . Coding Level of Care Code Est Pt Level 3 (56964) Est Pt Prev Care 40-64y(34715) Diagnoses Encounter for general adult medical examination with abnormal findings Z00.01 Facial rash R21 Anxiety, generalized F41.1 Environmental allergies Z91.09 Postural orthostatic tachycardia syndrome I49.8 Mast cell disorder D47.09 Headache syndrome G44.89 Additional Codes ANU-7 Assessment Billing - ANU-7 Assessment Tool: ANU-7 Assessment 84131 ([id number]) PHQ-9 - 66501 - PHQ-9 Billing: Yes ([id number]) Assessment & Plan Assessment & Plan (1) Encounter for general adult medical examination with abnormal findings: Code(s): Z00.01 - Encounter for general adult medical examination with abnormal findings Category: Medical (2) Facial rash: Code(s): R21 - Rash and other nonspecific skin eruption Category: Medical (3) Anxiety, generalized: Code(s): F41.1 - Generalized anxiety disorder Category: Medical (4) Environmental allergies: Code(s): Z91.09 - Other allergy status, other than to drugs and biological substances Category: Medical (5) Postural orthostatic tachycardia syndrome: Comment: [place] with [facility] [place] Code(s): I49.8 - Other specified cardiac arrhythmias Category: Medical (6) Mast cell disorder: Code(s): D47.09 - Other mast cell neoplasms of uncertain behavior Category: Medical (7) Headache syndrome: Code(s): G44.89 - Other headache syndrome Category: Medical Plan Patient Instructions - Complete the fasting lab work that has been ordered for you. - For the skin rash, you can continue using ldhl-qva-uvgawcf hydrocortisone cream (0.5% or 1%) as needed. Apply it for one week, then take a break before using it again. - If the rash does not improve or you would like a specialist to look at it, please let us know to arrange a referral to a carbider. - Continue your efforts to eat a healthy diet and exercise regularly to help manage your weight, as your metabolism can slow with age. - Continue taking sertraline as prescribed for anxiety, as it seems to be working well for you. - Schedule a follow-up appointment for your next annual physical exam in one year, or contact us sooner if you have any new concerns. Orders: Orders Comprehensive Hines. Panel Fast Today D47.09 - Other mast cell neoplasms of uncertain behavior, F41.1 - Generalized anxiety disorder, G44.89 - Other headache syndrome, I49.8 - Other specified cardiac arrhythmias, R21 - Rash and other nonspecific skin eruption, Z00.01 - Encounter for general adult medical examination with abnormal findings TSH reflex Free T4 Today D47.09 - Other mast cell neoplasms of uncertain behavior, F41.1 - Generalized anxiety disorder, G44.89 - Other headache syndrome, I49.8 - Other specified cardiac arrhythmias, R21 - Rash and other nonspecific skin eruption, Z00.01 - Encounter for general adult medical examination with abnormal findings Complete Blood Count Auto Diff Today D47.09 - Other mast cell neoplasms of uncertain behavior, F41.1 - Generalized anxiety disorder, G44.89 - Other headache syndrome, I49.8 - Other specified cardiac arrhythmias, R21 - Rash and other nonspecific skin eruption, Z00.01 - Encounter for general adult medical examination with abnormal findings Lipid Panel Today D47.09 - Other mast cell neoplasms of uncertain behavior, F41.1 - Generalized anxiety disorder, G44.89 - Other headache syndrome, I49.8 - Other specified cardiac arrhythmias, R21 - Rash and other nonspecific skin eruption, Z00.01 - Encounter for general adult medical examination with abnormal findings
== END 2025-01-07 09:25 | disposition home or self-care (01) ==
LOC: HO.HMCC 08:48
PROVIDERS: PCP Internal Medicine; Visit Provider Internal Medicine
DX: Z00.01 Encounter for general adult medical examination with abnormal findings (principal); R21 Rash and other nonspecific skin eruption; F41.1 Generalized anxiety disorder; Z91.09 Other allergy status, other than to drugs and biological substances; I49.8 Other specified cardiac arrhythmias; D47.09 Other mast cell neoplasms of uncertain behavior; G44.89 Other headache syndrome

== ENCOUNTER → 2025-01-07 08:47 | Outpatient (BNVA) | payer OTHER, SELFPAY | PROVIDERS: PCP Internal Medicine; Visit Provider Internal Medicine | DX: Z00.01 Encounter for general adult medical examination with abnormal findings (principal); K22.2 Esophageal obstruction; G43.909 Migraine, unspecified, not intractable, without status migrainosus; G90.A Postural orthostatic tachycardia syndrome [POTS]; L30.9 Dermatitis, unspecified; R63.5 Abnormal weight gain; R21 Rash and other nonspecific skin eruption; F41.1 Generalized anxiety disorder; I49.8 Other specified cardiac arrhythmias; D47.09 Other mast cell neoplasms of uncertain behavior; G44.89 Other headache syndrome; Z91.09 Other allergy status, other than to drugs and biological substances | CPT/HCPCS: 96127 ==

== ENCOUNTER 2025-01-09 08:59 | Outpatient (REF) | payer OTHER, SELFPAY ==
[2025-01-09 09:13] LABS: MANUAL DIFF FLAG NO
[2025-01-09 09:25] LABS: Hematocrit 39.9 % (37.0-47.0); Hemoglobin 12.9 g/dl (12.0-16.0); Imm Gran Abs Auto 0.02 X10*3/uL (0.00-0.03); Imm Gran Pct Auto 0.3 % (0.0-0.4); Lymphocytes Absolute Auto 1.7 X10*3/uL (1.2-4.9); Mean Corpuscular HGB Conc 32.3 g/dl (31.0-35.0); Mean Corpuscular Hemoglobin 30.0 pg (27.0-33.0); Mean Corpuscular Volume 92.8 fL (80.0-98.0); NRBC Abs Auto 0.000 X10*3/uL (0.0-0.012); NRBC Pct Auto 0.0 /100WBC (0.0-0.2); Platelet Count 350 X10*3/uL (160-400); Red Blood Count 4.30 X10*6/uL (4.20-5.50); White Blood Count 6.8 X10*3/uL (4.8-10.8)
[2025-01-09 10:04] LABS: Alanine Aminotransferase 24 U/L (0-31); Albumin Level 4.3 g/dL (3.5-5.0); Alkaline Phosphatase 86 U/L (39-117); Anion Gap 14 (12-20); Aspartate Amino Transferase 36 U/L (5-31); Blood Urea Nitrogen 14 mg/dL (9-16); Calcium 8.8 mg/dL (8.4-10.2); Carbon Dioxide 23 mmol/L (22-29); Chloride 109 mmol/L (96-108); Cholesterol 161 mg/dL (<200); Estimated Glomerular Filt Rate > 60; HDL Cholesterol 46 mg/dL (>40); Potassium 3.5 mmol/L (3.3-5.1); Sodium 142 mmol/L (135-145); Total Protein 7.4 g/dL (6.5-8.0); Triglycerides 87 mg/dL (<150)
== END 2025-01-09 09:00 | disposition home or self-care (01) ==
LOC: HO.LAB 08:59
PROVIDERS: Visit Provider Internal Medicine
DX: Z00.00 Encounter for general adult medical examination without abnormal findings (principal); F41.1 Generalized anxiety disorder; R21 Rash and other nonspecific skin eruption; D47.09 Other mast cell neoplasms of uncertain behavior; G44.89 Other headache syndrome; I49.8 Other specified cardiac arrhythmias; Z13.6 Encounter for screening for cardiovascular disorders
CPT/HCPCS: 36415; 80053; 80061; 84443; 85025

== ENCOUNTER 2025-01-15 11:13 | Outpatient (AMB) | payer OTHER, SELFPAY ==
--- NOTE | 2025-01-15 11:30 | MHC.OFFVIS ---
Vital Signs 01/15/25 11:33 Height 5 ft 3 in Weight 148 lb BMI 26.2 BP 120/72 Intake Visit Reasons: depo restart Intake Note: Patient received Depo in November. Accompanied by: Self / Same As Patient Allergies prochlorperazine (From COMPAZINE) Allergy (Intermediate, Verified 01/15/25 11:30) DYSTONIC, muscle spasms buspirone (From BuSpar) Adverse Reaction (Mild, Verified 01/15/25 11:30) Abdominal Pain Environmental Allergy (Intermediate, Uncoded 10/29/24 10:38) Runny Nose Medication List - Last Reconciled 01/15/25 by Lili Little CNM amitriptyline 30 mg (3 x 10 mg) PO BEDTIME 90 days cromolyn 200 mg (10 mL) PO QID 90 days epinephrine 1 mL IM NEEDED fludrocortisone 0.2 mg (2 x 0.1 mg) PO DAILY gabapentin 200 mg (2 x 100 mg) PO BEDTIME hyoscyamine sulfate 0.125 mg sublingual BID-TID PRN ivabradine 5 mg PO BID uykcvh-dxficbps-jjbhawo (pork) 24,000-76,000 -120,000 unit (Creon) 2 caps PO TID 90 days loratadine 1 tab PO DAILY medroxyprogesterone (Depo-Provera) 150 mg IM Q12W montelukast 10 mg PO BEDTIME nizatidine 300 mg PO BID omalizumab (Xolair) mg subcut sertraline 100 mg PO DAILY sumatriptan succinate take 1 tab at onset of headache; if no relief may repeat 1 tab after at least 2 hrs; PO 30 days Post menopausal: No Patient : No HPI HPI depo restart: Details: Patient is here to check in about her Depo Provera it says Depo restart on the visit but she just started the Depo on November 21. She had to go to [place] for family obligations a during the summer so everything got delayed as well there were appointment problems she sees an head waiter/waitress for her mass so syndrome and because she has extreme symptoms prior to her menses and with her menses that are mostly GI related she also sees Gastroenterology for this who manages those symptoms with her. The head waiter/waitress she now sees left the practice so she now is seeing somebody who does not accept insurance but if testing is ordered within the allergy practice it can be covered as far she knows. The 1 thing she has noticed since going on the Depo is her migraine headaches have decreased which is beneficial. She has a next injection scheduled for February 20 which is the end of the possible window of time to get it but that is because she will be traveling to [place] for family obligations again over the holidays and is not sure of when she will be coming back she will be driving. Overall she is happy enough on the Depo and wants to continue with it to see if it continues to benefit her. We did discuss other more long-term options but she still agrees with this plan to see if it is helpful with her menses. She is not sexually active so she does not need it for control. [facility] Medical History Bicornuate uterus Mast cell activation syndrome Anemia Postural orthostatic tachycardia syndrome Atrial tachycardia Anxiety Gastroparesis Asthma Surgical History History of Leonardo fundoplication Hx of colonoscopy H/O esophagogastroduodenoscopy Family History Mother Fibromyalgia Diabetes Sister No problems noted. Maternal Aunt Uterine cancer Social History Household Members: None Housing: Condominium Alcohol intake: former Patient Tobacco Use Status: Never used Tobacco e-Cigarette/Vaping Use: Never Used Second Hand Smoke Exposure: No Patient : No service: No Current occupational status: employed ([employer]) Cognitive needs: No Hearing needs: No Vision needs: Yes Female Reproductive History Menstrual Age of Menarche: 9 control method: progesterone injection (Depo) Physical Exam Vital Signs: Last Vital Signs BP 120/72 01/15/25 11:33 BMI result Body Mass Index 26.2 Assessment & Plan Assessment & Plan (1) Environmental allergies: Code(s): Z91.09 - Other allergy status, other than to drugs and biological substances Category: Medical (2) Postural orthostatic tachycardia syndrome: Comment: [place] [facility] [place] Code(s): I49.8 - Other specified cardiac arrhythmias Category: Medical (3) Mast cell disorder: Code(s): D47.09 - Other mast cell neoplasms of uncertain behavior Category: Medical (4) Migraine: Code(s): G43.909 - Migraine, unspecified, not intractable, without status migrainosus Category: Medical Qualifiers: Migraine type: unspecified Status migrainosus presence: without status migrainosus Intractability: not intractable Qualified Code(s): G43.909 - Migraine, unspecified, not intractable, without status migrainosus (5) Surveillance for Depo-Provera contraception: Comment: Started on Depo-Provera November 21 2 see if it would ameliorate her cascade of symptoms having to do with menses, so far there is improvement... Code(s): Z30.42 - Encounter for surveillance of injectable contraceptive Category: Medical Plan Patient is here to check in about her Depo Provera it says Depo restart on the visit but she just started the Depo on November 21. She had to go to [place] for family obligations a during the summer so everything got delayed as well there were appointment problems she sees an head waiter/waitress for her mass so syndrome and because she has extreme symptoms prior to her menses and with her menses that are mostly GI related she also sees Gastroenterology for this who manages those symptoms with her. The head waiter/waitress she now sees left the practice so she now is seeing somebody who does not accept insurance but if testing is ordered within the allergy practice it can be covered as far she knows. The 1 thing she has noticed since going on the Depo is her migraine headaches have decreased which is beneficial. She has a next injection scheduled for February 20 which is the end of the possible window of time to get it but that is because she will be traveling to [place] for family obligations again over the holidays and is not sure of when she will be coming back she will be driving. Overall she is happy enough on the Depo and wants to continue with it to see if it continues to benefit her. We did discuss other more long-term options but she still agrees with this plan to see if it is helpful with her menses. She is not sexually active so she does not need it for control. Discussed the I am not sure when she would be able to bean picker machine operator the Dep[facility]Provera from [facility] but she could see if it would be available to bean picker machine operator before she goes on her trip and if her trip return got delayed she might be able to find a [facility] some facility that could give her the injection while she is out there so long as she could provide would them with the correct dates I am refilling her Depo-Provera for the next year. Medications: Refilled medroxyprogesterone (Depo-Provera) To start with next heavy menses then every 12 weeks. 150 mg IM Q12W 1 mL 5RF Coding Level of Care Code Est Pt Level 3 (54749) Diagnoses Environmental allergies Z91.09 Postural orthostatic tachycardia syndrome I49.8 Mast cell disorder D47.09 Migraine without status migrainosus, not intractable, unspecified migraine type G43.909 Migraine type: unspecified Status migrainosus presence: without status migrainosus Intractability: not intractable Surveillance for Depo-Provera contraception Z30.42
[2025-01-15 11:33] VITALS: BP 120/72; BMI 26.2
== END 2025-01-15 13:30 | disposition home or self-care (01) ==
PROVIDERS: PCP Internal Medicine; Visit Provider Advanced Practice Midwife
DX: Z91.09 Other allergy status, other than to drugs and biological substances (principal); I49.8 Other specified cardiac arrhythmias; D47.09 Other mast cell neoplasms of uncertain behavior; G43.909 Migraine, unspecified, not intractable, without status migrainosus; Z30.42 Encounter for surveillance of injectable contraceptive
CPT/HCPCS: 99213